=== PATIENT | female | born 1940 | race Caucasian/White ===

== ENCOUNTER 2016-07-07 13:05 | Outpatient (RCR) | payer MEDICARE ==
--- OUTSIDE RECORDS SUMMARY | 2016-07-02 15:21 | XMS REPORT | Continuity of Care Document ---
Author Author [facility] Organization [facility] Address Unknown Phone Unavailable Care Team Providers Care Ssrs Developer Name Role Phone LEOBARDO LEW DO PCP Insurance Providers Payer Name Policy Number Subscriber Name Relationship [employer] [id number] Lula Desai 18 Self / Same As Patient Advance Directives Directive Response Recorded Date/Time Advance Directives No 04/26/16 9:16am Health Care Power of Bath Mixer No 04/26/16 9:16am Organ Donor No 04/26/16 9:16am Problems No problem information available. Medications Current Home Medications Medication Dose Units Route Directions Days/Qty Instructions Start Date Multivitamin 1 Each 1 Each Oral Daily 04/23/16 Ascorbate Calcium 500 Mg 500 Mg Oral Daily 04/23/16 Ferrous Sulfate 325 Mg 325 Mg Oral Daily 04/23/16 Cholecalciferol (Vitamin D3) 1,000 Unit 1,000 Unit Oral Daily Cyanocobalamin (Vitamin B-12) 2,500 Mcg 2,500 Mcg Oral Daily Potassium Chloride 20 Meq 20 Meq Oral Twice A Day 04/23/16 Omeprazole 20 Mg 20 Mg Oral Twice A Day 04/23/16 Triamterene/Hydrochlorothiazid 1 Each 1 Each Oral Daily 04/23/16 Levothyroxine Sodium 88 Mcg 88 Mcg Oral Daily 04/23/16 Duloxetine Hcl 60 Mg 60 Mg Oral Bedtime 04/23/16 Quetiapine Fumarate 400 Mg 400 Mg Oral Bedtime 04/23/16 Social History Social History Problem Response Recorded Date/Time Recent Foreign Travel N SEE SCOT[place] 04/06/2016 2:40pm Hospital Discharge Instructions No hospital discharge instructions. Plan of Care Prescriptions See Medication Section Functional Status No functional status results. Allergies, Adverse Reactions, Alerts Allergen Type Severity Reaction Status Last Updated Codeine Allergy Unknown Active 04/23/16 Immunizations No immunization records. Vital Signs No known vital signs results. Results Laboratory Results Test Name Result Units Flags Reference Collection Date/Time Result Date/ Time Comments White Blood Count 5.9 10^3/uL 4.3-11.0 05/12/2016 1:06pm 05/12/2016 1: 20pm Red Blood Count 3.92 10^6/uL L 4.35-5.85 05/12/2016 1:06pm 05/12/2016 1: 20pm Hemoglobin 11.4 G/DL L 11.5-16.0 05/12/2016 1:06pm 05/12/2016 1:20pm Hematocrit 35 % 35-52 05/12/2016 1:06pm 05/12/2016 1:20pm Mean Corpuscular Volume 89 FL 80-99 05/12/2016 1:06pm 05/12/2016 1: 20pm Mean Corpuscular Hemoglobin 29 PG 25-34 05/12/2016 1:06pm 05/12/2016 1: 20pm Mean Corpuscular Hemoglobin Concent 33 G/DL 32-36 05/12/2016 1:06pm 1:20pm Red Cell Distribution Width 22.8 % H 10.0-14.5 05/12/2016 1:06pm 2015 1:20pm Platelet Count 327 10^3/uL 130-400 05/12/2016 1:06pm 05/12/2016 1:20pm Mean Platelet Volume 9.3 FL 7.4-10.4 05/12/2016 1:06pm 05/12/2016 1: 20pm Neutrophils (%) (Auto) 59 % 42-75 05/12/2016 1:06pm 05/12/2016 1:20pm Lymphocytes (%) (Auto) 27 % 12-44 05/12/2016 1:06pm 05/12/2016 1:20pm Monocytes (%) (Auto) 10 % 0-12 05/12/2016 1:0605/12/2016 1:20pm Eosinophils (%) (Auto) 4 % 0-10 05/12/2016 1:06pm 05/12/2016 1:20pm Basophils (%) (Auto) 1 % 0-10 05/12/2016 1:06pm 05/12/2016 1:20pm Neutrophils # (Auto) 3.4 X 10^3 1.8-7.8 05/12/2016 1:06pm 05/12/2016 1: 20pm Lymphocytes # (Auto) 1.6 X 10^3 1.0-4.0 05/12/2016 1:06pm 05/12/2016 1: 20pm Monocytes # (Auto) 0.6 X 10^3 0.0-1.0 05/12/2016 1:pm 05/12/2016 1: 20pm Eosinophils # (Auto) 0.2 10^3/uL 0.0-0.3 05/12/2016 1:pm 05/12/2016 1 :20pm Basophils # (Auto) 0.0 10^3/uL 0.0-0.1 05/12/2016 1:06pm 05/12/2016 1: 20pm Sodium Level 135 MMOL/L 135-145 05/12/2016 1:05/12/2016 2:03pm Potassium Level 3.7 MMOL/L 3.6-5.0 05/12/2016 1:05/12/2016 2:03pm Chloride Level 101 MMOL/L 98-107 05/12/2016 1:05/12/2016 2:03pm Carbon Dioxide Level 24 MMOL/L 21-32 05/12/2016 1:05/12/2016 2: 03pm Anion Gap 10 MMOL/L 5-14 05/12/2016 1:05/12/2016 2:03pm Blood Urea Nitrogen 18 MG/DL 7-18 05/12/2016 1:05/12/2016 2:03pm Creatinine 0.89 MG/DL 0.60-1.30 05/12/2016 1:06pm 05/12/2016 2:03pm BUN/Creatinine Ratio 20 05/12/2016 1:05/12/2016 2:03pm Estimat Glomerular Filtration Rate > 60 05/12/2016 1:06pm 2015 2:03pm GFR INTERPRETIVE DATA UNITS FOR ESTIMATED GFR (eGFR): mL/min/1.73 M2 REFERENCE RANGE FOR ESTIMATED GFR (eGFR) eGFR NORMAL eGFR >60 MODERATELY DECREASED eGFR 30-59 SEVERLY DECREASED eGFR 15-29 KIDNEY FAILURE <15 (OR DIALYSIS) Glucose Level 94 MG/DL 70-105 05/12/2016 1:06pm 05/12/2016 2:03pm Calcium Level 9.2 MG/DL 8.5-10.1 05/12/2016 1:06pm 05/12/2016 2:03pm Total Bilirubin 0.3 MG/DL 0.1-1.0 05/12/2016 1:06pm 05/12/2016 2:03pm Alkaline Phosphatase 49 U/L 40-136 05/12/2016 1:06pm 05/12/2016 2:03pm Aspartate Amino Transf (AST/SGOT) 17 U/L 5-34 05/12/2016 1:06pm 2015 2:03pm Alanine Aminotransferase (ALT/SGPT) 19 U/L 0-55 05/12/2016 1:06pm 05/12 2:03pm Total Protein 5.7 G/DL L 6.4-8.2 05/12/2016 1:06pm 05/12/2016 2:03pm Albumin 3.6 G/DL 3.2-4.5 05/12/2016 1:06pm 05/12/2016 2:03pm Stool Occult Blood Immunoassay NEGATIVE NEGATIVE 04/30/2016 3:00pm 4:47pm Ferritin 41 ng/mL 15-150 05/12/2016 1:06pm 05/13/2016 11:41am Test performed at [facility], CLIA# [id number] [address] [place] [address] Iron Level 31 ug/dL L 35-180 05/12/2016 1:06pm 05/12/2016 5:02pm Transferrin % Saturation 10 % L 15-50 05/12/2016 1:06pm 05/12/2016 5: 02pm Total Iron Binding Capacity 300 ug/dL 280-380 05/12/2016 1:06pm 2015 5:02pm Unsaturated Iron Binding Capacity 269 ug/dL 55-450 05/12/2016 1:06pm 5:03pm Test performed at [facility], CLIA# [id number] [address] [place] [address] Methylmalonic Acid 0.19 umol/L 0.00-0.40 05/12/2016 1:06pm 05/17/2016 7 :54am INTERPRETIVE INFORMATION: MMA Serum/Plasma, Metabolic Disorder Test developed and characteristics determined by [facility]. See Compliance Statement B: [facility] Performed by [facility], [address] [place] [id number] [email or web address], Ramsey Lyn MD - Lab. Director Vitamin B12 Level 1024 pg/mL H 200-1000 05/12/2016 1:06pm 05/13/2016 11: 42am Test performed at [facility], CLIA# [id number] [address] [place] [address] Procedures No known history of procedures. Encounters Encounter Location Arrival/Admit Date Discharge/Depart Date Attending Provider Discharged Recurring [facility] 05/12/16 12:44pm 1:29pm DANIE SHOOK MD
[2016-07-02 15:33] LABS: BASOPHILS % (AUTO) 0 % (0-10); EOSINOPHILS # (AUTO) 0.3 10^3/uL (0.0-0.3); EOSINOPHILS % (AUTO) 4 % (0-10); LYMPHOCYTES % (AUTO) 32 % (12-44); MEAN CORPUSCULAR HEMOGLOBIN 31 PG (25-34); MEAN CORPUSCULAR HGB CONC 34 G/DL (32-36); MEAN CORPUSCULAR VOLUME 91 FL (80-99); MEAN PLATELET VOLUME 9.9 FL (7.4-10.4); MONOCYTES # (AUTO) 0.7 X 10^3 (0.0-1.0); MONOCYTES % (AUTO) 11 % (0-12); NEUTROPHILS # (AUTO) 3.3 X 10^3 (1.8-7.8); NEUTROPHILS % (AUTO) 53 % (42-75); PLATELET COUNT 346 10^3/uL (130-400); RED BLOOD COUNT 4.45 10^6/uL (4.35-5.85); RED CELL DISTRIBUTION WIDTH 15.6 % (10.0-14.5); WHITE BLOOD COUNT 6.3 10^3/uL (4.3-11.0)
[2016-07-02 15:51] LABS: BILIRUBIN,TOTAL 0.5 MG/DL (0.1-1.0); CALCIUM 9.7 MG/DL (8.5-10.1); CREATININE SERUM 0.97 MG/DL (0.60-1.30); POTASSIUM 3.2 MMOL/L (3.6-5.0); TOTAL PROTEIN 6.4 G/DL (6.4-8.2)
[~2016-07-07 13:05] MED LIST: ASCO-262 PO; CHOL10003 PO; CYAN250010 PO; DULO60CA6 PO; FERR-84 PO; LEVO88TA54 PO; MULT1TAB69 PO; OMEP20CA12 PO; POTA20TA8 PO; QUET400T PO; TRIA1CAP4 PO
== END 2016-09-30 | disposition home or self-care (01) ==
LOC: ONC 13:05
PROVIDERS: ATTEND Internal Medicine Hematology & Oncology
DX: Z08 Encounter for follow-up examination after completed treatment for malignant neoplasm (principal); Z85.3 Personal history of malignant neoplasm of breast; I89.0 Lymphedema, not elsewhere classified; E03.9 Hypothyroidism, unspecified; I10 Essential (primary) hypertension; M12.9 Arthropathy, unspecified; Z79.899 Other long term (current) drug therapy
CPT/HCPCS: 36415; 80053; 82728; 83540; 85025; 86300; 99213

== ENCOUNTER 2016-12-08 13:32 | Outpatient (RCR) | payer MEDICARE ==
[2016-12-07 14:42] LABS: BASOPHILS % (AUTO) 0 % (0-10); EOSINOPHILS # (AUTO) 0.3 10^3/uL (0.0-0.3); EOSINOPHILS % (AUTO) 4 % (0-10); LYMPHOCYTES # (AUTO) 1.7 X 10^3 (1.0-4.0); LYMPHOCYTES % (AUTO) 25 % (12-44); MEAN CORPUSCULAR HEMOGLOBIN 31 PG (25-34); MEAN CORPUSCULAR HGB CONC 33 G/DL (32-36); MEAN CORPUSCULAR VOLUME 95 FL (80-99); MEAN PLATELET VOLUME 9.4 FL (7.4-10.4); MONOCYTES # (AUTO) 0.6 X 10^3 (0.0-1.0); MONOCYTES % (AUTO) 9 % (0-12); NEUTROPHILS # (AUTO) 4.1 X 10^3 (1.8-7.8); NEUTROPHILS % (AUTO) 62 % (42-75); PLATELET COUNT 310 10^3/uL (130-400); WHITE BLOOD COUNT 6.7 10^3/uL (4.3-11.0)
[2016-12-07 15:12] LABS: ALANINE AMINOTRANSFERASE 10 U/L (0-55); ALBUMIN 3.7 G/DL (3.2-4.5); ANION GAP 9 MMOL/L (5-14); ASPARTATE AMINO TRANSFERASE 13 U/L (5-34); BILIRUBIN,TOTAL 0.4 MG/DL (0.1-1.0); BLOOD UREA NITROGEN 18 MG/DL (7-18); BUN/CREATININE RATIO 21; CALCIUM 8.9 MG/DL (8.5-10.1); CARBON DIOXIDE 24 MMOL/L (21-32); CHLORIDE 102 MMOL/L (98-107); CREATININE SERUM 0.87 MG/DL (0.60-1.30); GFR ESTIMATED > 60; GLUCOSE 110 MG/DL (70-105); POTASSIUM 3.5 MMOL/L (3.6-5.0); SODIUM 135 MMOL/L (135-145); TOTAL PROTEIN 6.1 G/DL (6.4-8.2)
== END 2017-03-07 | disposition home or self-care (01) ==
LOC: ONC 13:32
PROVIDERS: ATTEND Internal Medicine Hematology & Oncology
DX: Z08 Encounter for follow-up examination after completed treatment for malignant neoplasm; D50.9 Iron deficiency anemia, unspecified; Z79.899 Other long term (current) drug therapy; M12.9 Arthropathy, unspecified; I10 Essential (primary) hypertension; I89.0 Lymphedema, not elsewhere classified; Z85.3 Personal history of malignant neoplasm of breast; Z45.2 Encounter for adjustment and management of vascular access device; E03.9 Hypothyroidism, unspecified
CPT/HCPCS: 36415; 80053; 82728; 83540; 85025; 96523; 99213

== ENCOUNTER → 2017-01-03 | Outpatient (CLI) | payer MEDICARE ==
--- NOTE | 2017-01-06 13:33 | Diagnostic Imaging Report ---
Right breast screening mammogram The current study was also evaluated with a Computer Aided Detection (CAD) system. Indication: Screening. No current complaints stated on the questionnaire. The patient has the head left mastectomy for breast cancer COMPARISON: 01/01/16 Findings: The right breast is composed of a heterogeneously dense parenchyma which may decrease mammographic sensitivity. The infusion port projects over the right axillary tail region. Allowing for technique and positional differences, no suspicious change is seen. IMPRESSION: No significant change. ACR BI-RADS Category 2: Benign findings. Result letter will be mailed to the patient. Note: At least 10% of breast cancer is not imaged by mammography. Dictated by: Dictated on workstation # [id number]
== END ==
LOC: RAD 14:55
PROVIDERS: ATTEND Internal Medicine Hematology & Oncology
DX: Z12.31 Encounter for screening mammogram for malignant neoplasm of breast (principal)

== ENCOUNTER → 2020-05-30 | Outpatient (CLI) | payer MEDICARE ==
[~2020-05-30] MED LIST changes: +MULT-567 PO; -MULT1TAB69 PO; -OMEP20CA12 PO; +OMEP20CA18 PO
--- NOTE | 2020-05-30 12:48 | Diagnostic Imaging Report ---
INDICATION: Routine screening. Comparison is made with prior mammogram 01/03/2017 and 01/01/2016. Unilateral right 2-D and 3-D screening mammography was performed with CAD. Scattered fibroglandular densities in the right breast are noted. No dominant mass or malignant appearing microcalcifications are seen. Biihlm-z-Lefv hub in the right axilla is noted. IMPRESSION: BI-RADS Category 2 No mammographic features suspicious for malignancy are identified. ACR BI-RADS Category 2: Benign findings. Result letter will be mailed to the patient. Note: At least 10% of breast cancer is not imaged by mammography. Dictated by: Dictated on workstation # [id number]
== END ==
LOC: RAD 11:15
PROVIDERS: ATTEND Family Medicine
DX: Z12.31 Encounter for screening mammogram for malignant neoplasm of breast (principal)
CPT/HCPCS: 77063

== ENCOUNTER → 2020-10-27 | Outpatient (CLI) | payer MEDICARE ==
--- NOTE | 2020-10-27 16:41 | Diagnostic Imaging Report ---
INDICATION: Left leg swelling EXAM: Noninvasive study performed in the routine fashion. Ankle-brachial indices on both sides are normal with ankle-brachial index for the posterior tibial artery of 1.29 on the right side and 1.20 on the left side. Ankle-brachial index for the dorsalis pedis was 1.17 on the right side and 1.4 on the left side. Segmental pressures showed normal waveforms bilaterally. IMPRESSION: Normal noninvasive study. Dictated by: Dictated on workstation # [id number]
== END ==
LOC: RAD 12:30
PROVIDERS: ATTEND Family Medicine
DX: M79.89 Other specified soft tissue disorders (principal)
CPT/HCPCS: 93922

== ENCOUNTER → 2022-03-10 | Outpatient (CLI) | payer MEDICARE ==
[~2022-03-10] MED LIST changes: -DULO60CA6 PO; +DULO60CA7 PO; +POTA-169 PO; -POTA20TA8 PO; -TRIA1CAP4 PO; +TRIA1CAP84 PO
--- NOTE | 2022-03-11 11:34 | Diagnostic Imaging Report ---
INDICATION: Routine screening. COMPARISON is made with prior mammograms 05/30/2020 and 01/03/2017. Unilateral right 2-D and 3-D screening mammography was performed with CAD. Right breast is heterogeneous and dense, limiting the sensitivity of mammography. The parenchymal pattern is stable. No mass or malignant-appearing microcalcifications are seen. Right axilla is unremarkable. IMPRESSION: BI-RADS Category 1 No mammographic features suspicious for malignancy are identified. ACR BI-RADS Category 1: Negative. Result letter will be mailed to the patient. Note: At least 10% of breast cancer is not imaged by mammography. Dictated by: Dictated on workstation # [id number]
== END ==
LOC: CARD 13:30
PROVIDERS: ATTEND Family Medicine
DX: Z12.31 Encounter for screening mammogram for malignant neoplasm of breast (principal); R01.1 Cardiac murmur, unspecified; Z90.12 Acquired absence of left breast and nipple
CPT/HCPCS: 77063; 93306

== ENCOUNTER 2023-04-13 15:29 | Inpatient (IN) | payer MEDICARE ==
[~2023-04-13] VITALS: Ht 162.6 cm; Wt 106.0 kg
--- NOTE | 2023-04-13 15:42 | ED Fall/Injury ---
General Chief Complaint: Trauma-Non Activation Stated Complaint: FALL Source: patient, EMS, old records Exam Limitations: no limitations History of Present Illness Date Seen by Provider: Apr 13, 2023 Time Seen by Provider: 15:31 Initial Comments 82yoF with PMH of HTN and hypothyroid most notably coming in via EMS due to a fall with left knee pain. She fell yesterday, family called EMS, patient refused to come. She states her knee has been "spasming" since then. She also has noted diarrhea for the past several days and subjective fever recently. Denies any chest pain, shortness of breath, headache, neck stiffness or pain, chest pain, shortness of breath, abdominal pain, weakness, numbness, or any other concerns. She does not believe she hit her head, she does not believe she passed out. She denies taking blood thinners. Allergies and Home Medications Allergies Coded Allergies: codeine (Verified Allergy, Unknown, 04/23/16) Patient Home Medication List Home Medication List Reviewed: Yes Ascorbate Calcium (Vitamin C) 500 Mg Tablet, 500 MG PO DAILY, (Reported) Entered as Reported by: KAREL DEMPSEY on 04/23/16836 Cholecalciferol (Vitamin D3) (Vitamin D3) 1,000 Unit Tablet, 1,000 UNIT PO DAILY , (Reported) Entered as Reported by: KAREL DEMPSEY on 04/23/16836 Cyanocobalamin (Vitamin B-12) (Vitamin B12) 2,500 Mcg Tablet, 2,500 MCG PO DAILY, (Reported) Entered as Reported by: KAREL DEMPSEY on 04/23/16836 Duloxetine HCl (Cymbalta) 60 Mg Capsule.dr, 60 MG PO HS, (Reported) Entered as Reported by: KAREL DEMPSEY on 04/23/16 08 Ferrous Sulfate (Iron) 325 Mg Tablet, 325 MG PO DAILY, (Reported) Entered as Reported by: KAREL DEMPSEY on 04/23/16836 Levothyroxine Sodium (Levothyroxine Sodium) 88 Mcg Tablet, 88 MCG PO DAILY, (Reported) Entered as Reported by: KAREL DEMPSEY on 04/23/16836 Multivitamin (Multivitamins) 1 Each Tablet, 1 EACH PO DAILY, (Reported) Entered as Reported by: KAREL DEMPSEY on 04/23/16836 Omeprazole (Omeprazole) 20 Mg Capsule.dr, 20 MG PO BID, (Reported) Entered as Reported by: KAREL DEMPSEY on 04/23/16836 Potassium Chloride (Klor-Con M20) 20 Meq Tab.er.prt, 20 MEQ PO BID, (Reported) Entered as Reported by: KAREL DEMPSEY on 04/23/16836 Quetiapine Fumarate (Seroquel) 400 Mg Tablet, 400 MG PO HS, (Reported) Entered as Reported by: KAREL DEMPSEY on 04/23/16836 Triamterene/Hydrochlorothiazid (Triamterene-Hctz 37.5-25 mg Cp) 1 Each Capsule, 1 EACH PO DAILY, (Reported) Entered as Reported by: KAREL DEMPSEY on 04/23/16836 Review of Systems Review of Systems Constitutional: fever Eyes: No Symptoms Reported Ears, Nose, Mouth, Throat: no symptoms reported Respiratory: no symptoms reported Cardiovascular: no symptoms reported Gastrointestinal: see HPI Genitourinary: no symptoms reported Musculoskeletal: see HPI Skin: no symptoms reported Psychiatric/Neurological: No Symptoms Reported All Other Systems Reviewed Negative Unless Noted: Yes Past Jokqaez-Loocli-Zqahhm Hx Patient Social History Substance use?: No Physical Exam Vital Signs Vital Signs - First Documented 04/13/23 15:34 Temp 37.9 Pulse 80 Resp 18 B/P (MAP) 126/43 (70) Pulse Ox 98 O2 Delivery Room Air Capillary Refill : Height, Weight, BMI Height: 5'4.00" Weight: 215lbs. 0.0oz. 97.034255ga; 36.9 BMI Method: General Appearance: WD/WN, no apparent distress HEENT: PERRL/EOMI, normal ENT inspection, pharynx normal Neck: non-tender, full range of motion, supple, normal inspection Cardiovascular: regular rate, rhythm Respiratory: chest non-tender, lungs clear, normal breath sounds, no respiratory distress, no accessory muscle use Gastrointestinal: normal bowel sounds, non tender, soft; No distended, No guarding, No rebound Back: normal inspection, no CVA tenderness, no vertebral tenderness Extremities: normal range of motion, no calf tenderness, normal capillary r efill, other (Left knee with some mild swelling and tenderness to palpation, no tenderness along the right knee, no pain with logroll of the hips, normal distal sensation and capillary refill, normal motor exam otherwise) Neurologic/Psychiatric: no motor/sensory deficits, alert, normal mood/affect Skin: normal color, warm/dry Cole Coma Score Best Eye Response: (4) Open Spontaneously Best Verbal Response: (4) Confused Conversation Best Motor Response: (6) Obeys Commands Progress/Results/Core Measures Results/Orders Lab Results Laboratory Tests Test 04/13/23 15:42 04/13/23 15:56 04/13/23 16:40 04/13/23 16:56 Range/Units White Blood Count 29.6 H 4.3-11.0 10^3/uL Red Blood Count 4.31 3.80-5.11 10^6/uL Hemoglobin 11.6 11.5-16.0 g/dL Hematocrit 33 L 35-52 % Mean Corpuscular Volume 77 L 80-99 fL Mean Corpuscular Hemoglobin 27 25-34 pg Mean Corpuscular Hemoglobin Concent 35 32-36 g/dL Red Cell Distribution Width 16.5 H 10.0-14.5 % Platelet Count 251 130-400 10^3/uL Mean Platelet Volume 12.7 H 9.0-12.2 fL Immature Granulocyte % (Auto) 4 % Neutrophils (%) (Auto) 87 H 42-75 % Lymphocytes (%) (Auto) 5 L 12-44 % Monocytes (%) (Auto) 4 0-12 % Eosinophils (%) (Auto) 0 0-10 % Basophils (%) (Auto) 0 0-10 % Neutrophils # (Auto) 25.8 H 1.8-7.8 10^3/uL Lymphocytes # (Auto) 1.4 1.0-4.0 10^3/uL Monocytes # (Auto) 1.2 H 0.0-1.0 10^3/uL Eosinophils # (Auto) 0.1 0.0-0.3 10^3/uL Basophils # (Auto) 0.0 0.0-0.1 10^3/uL Immature Granulocyte # (Auto) 1.1 H 0.0-0.1 10^3/uL Neutrophils % (Manual) 89 % Lymphocytes % (Manual) 5 % Monocytes % (Manual) 6 % Poikilocytosis SLIGHT Anisocytosis SLIGHT Prothrombin Time 14.6 12.2-14.7 SEC INR Comment 1.1 0.8-1.4 Activated Partial Thromboplast Time 29 24-35 SEC Sodium Level 129 L 135-145 MMOL/L Potassium Level 2.6 L 3.6-5.0 MMOL/L Chloride Level 97 L 98-107 MMOL/L Carbon Dioxide Level 22 21-32 MMOL/L Anion Gap 10 5-14 MMOL/L Blood Urea Nitrogen 39 H 7-18 MG/DL Creatinine 2.31 H 0.60-1.30 MG/DL Estimat Glomerular Filtration Rate 21 BUN/Creatinine Ratio 17 Glucose Level 113 H 70-105 MG/DL Calcium Level 9.1 8.5-10.1 MG/DL Corrected Calcium 10.1 8.5-10.1 MG/DL Magnesium Level 2.2 1.6-2.4 MG/DL Total Bilirubin 0.7 0.1-1.0 MG/DL Aspartate Amino Transf (AST/SGOT) 43 H 5-34 U/L Alanine Aminotransferase (ALT/SGPT) 23 0-55 U/L Alkaline Phosphatase 99 40-136 U/L Troponin I 0.336 *H <0.028 NG/ML Total Protein 5.8 L 6.4-8.2 GM/DL Albumin 2.7 L 3.2-4.5 GM/DL Lipase 15 8-78 U/L Influenza Type A (RT-PCR) Not Detected Not Detecte Influenza Type B (RT-PCR) Not Detected Not Detecte SARS-CoV-2 RNA (RT-PCR) Not Detected Not Detecte Lactic Acid Level 1.58 0.50-2.00 MMOL/L My Orders Orders - RADHA HAAS MD Ct Head/Cervical Spine Wo (04/13/23 15:35) Ed Iv/Invasive Line Start (04/13/23 15:35) Chest 1 View, Ap/Pa Only (04/13/23 15:35) Knee, Left, 3 Views (04/13/23 15:35) Pelvis With Left Hip 2-3 Views (04/13/23 15:35) Cbc With Automated Diff (04/13/23 15:35) Comprehensive Metabolic Panel (04/13/23 15:35) Lipase (04/13/23 15:35) Magnesium (04/13/23 15:35) Protime With Inr (04/13/23 15:35) Partial Thromboplastin Time (04/13/23 15:35) Ua Culture If Indicated (04/13/23 15:35) Influenza A And B By Pcr (04/13/23 15:35) Troponin I Nilesh (04/13/23 15:35) Ekg Tracing (04/13/23 15:35) Covid 19 Inhouse Test (04/13/23 15:35) Acetaminophen Tablet (Acetaminophen Ta (04/13/23 15:45) Manual Differential (04/13/23 15:42) Ns Iv 1000 Ml (Sodium Chloride 0.9%) (04/13/23 16:23) Blood Culture (04/13/23 16:23) Lactic Acid Analyzer (04/13/23 16:23) Cefepime Injection (Cefepime Injection) (04/13/23 16:30) Potassium Cl 10meq/50ml Ivpb (Kcl 10 Meq (04/13/23 16:24) Potassium Chloride (Tablet) (Potassium C (04/13/23 16:30) Aspirin Chewable Tablet (Aspirin Chewabl (04/13/23 16:30) Ns Iv 1000 Ml (Sodium Chloride 0.9%) (04/13/23 16:54) Ed Admission (Communication) (04/13/23 17:07) Medications Given in ED Current Medications Medications Dose Ordered Sig/Gordon Route Start Time Stop Time Status Last Admin Dose Admin Acetaminophen 1,000 mg ONCE ONCE PO 04/13/23 15:45 04/13/23 15:46 DC 04/13/23 15:54 1,000 MG Aspirin 324 mg ONCE ONCE PO 04/13/23 16:30 04/13/23 16:31 DC 04/13/23 17:05 324 MG Potassium Chloride 40 meq ONCE ONCE PO 04/13/23 16:30 04/13/23 16:31 DC 04/13/23 17:04 40 MEQ Vital Signs/I&O 04/13/23 15:34 Temp 37.9 Pulse 80 Resp 18 B/P (MAP) 126/43 (70) Pulse Ox 98 O2 Delivery Room Air Progress Progress Note : Progress Note 82-year-old female with above history coming in after a fall and confused. Patient was not quite febrile on arrival but did have an elevated temperature, vitals otherwise fairly unremarkable. She was confused on exam and is unclear exactly why she is here or what happened. Exam mostly consistent with left knee pain. EKG ordered and interpreted by me showing no STEMI, does have some nonspecific T wave flattening in the high lateral leads. CT head and cervical spine ordered and interpreted by me showing no obvious fracture and no significant intracranial bleed or mass. X-ray chest, pelvis, left hip, left knee ordered and interpreted by me showing no obvious fracture or dislocation, no obvious pneumonia. Basic labs significant for white blood cell count just under 30, BRIAN with a creatinine just over 2, elevated troponin just over 0.3, low sodium, low potassium. She was given full dose aspirin, sepsis work-up will be initiated as well with IV antibiotics and IV fluids including lactic acid and blood cultures. The patient has had significant diarrhea for the past several days, I suspect she is hypovolemic and just needs fluids. I suspect the troponin elevation is a type II NSTEMI given the relatively unremarkable EKG and lack of chest pain. I contacted Dr. Buenrostro who admit the patient to the intensive care unit for further evaluation and management. We will consult with the dowel pointer, awaiting a callback at this time. I also contacted the ICU physician and give signout. Initial ECG Impression Date: Apr 13, 2023 Initial ECG Impression Time: 15:59 Initial ECG Rate: 74 Initial ECG Rhythm: Normal Sinus Comment Narrow QRS, normal axis, no significant ST changes, T wave flattening in the high lateral leads which is nonspecific Diagnostic Imaging Diagonstic Imaging: Xray (chest, pelvis, left hip, left knee), CT (head/cspine) Comments NAME: PAVITHRA DESAI [facility] REC#: [id number] PT STATUS: REG ER : 1940 PHYSICIAN: RADHA HAAS MD ADMIT DATE: 04/13/23/ER Draft Date of Exam:04/13/23 CT HEAD/CERVICAL SPINE WO PROCEDURE: CT head and CT cervical spine without contrast. TECHNIQUE: Multiple contiguous axial images were obtained through the brain and cervical spine without the use of intravenous contrast. Sagittal and coronal reformations through the cervical spine were then performed. Auto Exposure Controls were utilized during the CT exam to meet ALARA standards for radiation dose reduction. INDICATION: Traumatic injury. Fall. COMPARISON: None. FINDINGS: CT HEAD: The ventricles and cortical sulci are diffusely prominent, compatible with age-related volume loss. There is no midline shift or mass-effect. No acute intra-axial hemorrhage is seen. There are no abnormal areas of increased or decreased density to suggest acute hemorrhage or edema. No extra-axial masses or collections are present. The bony calvarium is intact. The visualized paranasal sinuses are unremarkable. The mastoid air cells are clear. CT CERVICAL SPINE: Static alignment of the cervical spine is maintained. There is no significant carole or retrolisthesis. There is no evidence of jumped facets. Vertebral body heights are maintained. There is no acute fracture. No bony fragments are seen within the spinal canal. There are moderate multilevel degenerative changes consistent with intervertebral disc height loss with anterior and posterior endplate osteophyte formations. Pre and paravertebral soft tissue structures are unremarkable. Included portions of the lung apices are clear. IMPRESSION: 1. No acute intracranial abnormality. No CT evidence of mass, acute infarct or intracranial hemorrhage. 2. No acute fracture or dislocation of the cervical spine. Dictated on workstation # [id number] Dict: 04/13/23 1618 Trans: 04/13/23 1625 [id number] Interpreted by: RUTH FARRELL MD Electronically signed by: Focused Exam Lactate Level 04/13/23 16:40: Lactic Acid Level 1.58 Lactic Acid Level Laboratory Tests Test 04/13/23 16:40 Lactic Acid Level 1.58 MMOL/L (0.50-2.00) Departure Impression Primary Impression: NSTEMI (non-ST elevated myocardial infarction) Additional Impressions: Fall Qualified Codes: W19.XXXA - Unspecified fall, initial encounter AMS (altered mental status) Qualified Codes: R41.0 - Disorientation, unspecified BRIAN (acute kidney injury) Hypokalemia Disposition: ADMITTED INPATIENT Condition: Stable Admissions Decision to Admit Reason: Admit from ER (General) Decision to Admit/Date: Apr 13, 2023 Time/Decision to Admit Time: 16:40 Departure-Patient Inst. Referrals: LEOBARDO LEW DO (PCP/Family) Primary Care Physician RADHA HAAS MD Apr 13, 2023 15:42
[2023-04-13] MEDS ORDERED: ACETAMINOPHEN 500 MG TABLET PO ONE (15:45)
[2023-04-13 16:03] LABS: BASOPHILS % (AUTO) 0 % (0-10); EOSINOPHILS # (AUTO) 0.1 10^3/uL (0.0-0.3); EOSINOPHILS % (AUTO) 0 % (0-10); HEMATOCRIT 33 % (35-52); HEMOGLOBIN 11.6 g/dL (11.5-16.0); LYMPHOCYTES # (AUTO) 1.4 10^3/uL (1.0-4.0); LYMPHOCYTES % (AUTO) 5 % (12-44); MEAN CORPUSCULAR HEMOGLOBIN 27 pg (25-34); MEAN CORPUSCULAR HGB CONC 35 g/dL (32-36); MEAN CORPUSCULAR VOLUME 77 fL (80-99); MEAN PLATELET VOLUME 12.7 fL (9.0-12.2); MONOCYTES # (AUTO) 1.2 10^3/uL (0.0-1.0); MONOCYTES % (AUTO) 4 % (0-12); NEUTROPHILS # (AUTO) 25.8 10^3/uL (1.8-7.8); NEUTROPHILS % (AUTO) 87 % (42-75); PLATELET COUNT 251 10^3/uL (130-400); WHITE BLOOD COUNT 29.6 10^3/uL (4.3-11.0)
[2023-04-13 16:07] LABS: ALBUMIN 2.7 GM/DL (3.2-4.5); POTASSIUM 2.6 MMOL/L (3.6-5.0)
[2023-04-13 16:09] LABS: CALCIUM 9.1 MG/DL (8.5-10.1)
[2023-04-13 16:10] LABS: TOTAL PROTEIN 5.8 GM/DL (6.4-8.2)
[2023-04-13 16:12] LABS: BILIRUBIN,TOTAL 0.7 MG/DL (0.1-1.0)
[2023-04-13 16:13] LABS: CREATININE SERUM 2.31 MG/DL (0.60-1.30)
[2023-04-13 16:16] LABS: MAGNESIUM 2.2 MG/DL (1.6-2.4)
[2023-04-13 16:23] LABS: INR 1.1 (0.8-1.4); PROTHROMBIN TIME PATIENT 14.6 SEC (12.2-14.7)
[2023-04-13] MEDS ORDERED: NS IV 1000 ML 1,000 ML IV STA ×2 (16:23→16:54)
[2023-04-13] MEDS ORDERED: POTASSIUM CL 10MEQ/50ML IVPB 50 ML IV STA (16:24)
--- NOTE | 2023-04-13 16:26 | Diagnostic Imaging Report ---
PROCEDURE: CT head and CT cervical spine without contrast. TECHNIQUE: Multiple contiguous axial images were obtained through the brain and cervical spine without the use of intravenous contrast. Sagittal and coronal reformations through the cervical spine were then performed. Auto Exposure Controls were utilized during the CT exam to meet ALARA standards for radiation dose reduction. INDICATION: Traumatic injury. Fall. COMPARISON: None. FINDINGS: CT HEAD: The ventricles and cortical sulci are diffusely prominent, compatible with age-related volume loss. There is no midline shift or mass-effect. No acute intra-axial hemorrhage is seen. There are no abnormal areas of increased or decreased density to suggest acute hemorrhage or edema. No extra-axial masses or collections are present. The bony calvarium is intact. The visualized paranasal sinuses are unremarkable. The mastoid air cells are clear. CT CERVICAL SPINE: Static alignment of the cervical spine is maintained. There is no significant carole or retrolisthesis. There is no evidence of jumped facets. Vertebral body heights are maintained. There is no acute fracture. No bony fragments are seen within the spinal canal. There are moderate multilevel degenerative changes consistent with intervertebral disc height loss with anterior and posterior endplate osteophyte formations. Pre and paravertebral soft tissue structures are unremarkable. Included portions of the lung apices are clear. IMPRESSION: 1. No acute intracranial abnormality. No CT evidence of mass, acute infarct or intracranial hemorrhage. 2. No acute fracture or dislocation of the cervical spine. Dictated by: Dictated on workstation # [id number]
[2023-04-13] MEDS ORDERED: ASPIRIN 81 MG CHEWABLE TABLET PO ONE (16:30)
[2023-04-13] MEDS ORDERED: POTASSIUM CHLORIDE 20 MEQ TABLET PO ONE (16:30)
[2023-04-13] MEDS ORDERED: CEFEPIME INJECTION 1,000 MG in NS (IVPB) 50 ML 50 ML IV ONE (16:30)
[2023-04-13 16:41] LABS: ANISOCYTOSIS SLIGHT; LYMPHOCYTES % (MANUAL) 5 %; MONOCYTES % (MANUAL) 6 %; NEUTROPHILS % (MANUAL) 89 %; POIKILOCYTOSIS SLIGHT
--- NOTE | 2023-04-13 16:45 | Diagnostic Imaging Report ---
HISTORY: Syncope, fall COMPARISON: None TECHNIQUE: Frontal view of the chest. FINDINGS: Lung volumes are normal. No consolidation is seen. There is no pleural effusion or pneumothorax. The cardiac silhouette is mildly large. There is calcified granuloma in the left lung. There is a linear density at the right upper lung projecting over the upper SVC. Surgical clips are seen in the left axilla. IMPRESSION: 1. Mild cardiomegaly with no acute pulmonary abnormality seen. 2. Linear density could represent a Port-A-Cath, projecting over the upper SVC. Dictated by: Dictated on workstation # [id number]
--- NOTE | 2023-04-13 16:46 | Diagnostic Imaging Report ---
EXAMINATION: Left knee radiographs, 3 views. COMPARISON: None. HISTORY: 82-year-old female, left knee pain. Fall. FINDINGS: There is severe medial and patellofemoral compartment joint space loss. There are tricompartmental osteophytes. There is a large knee joint effusion. There is no identified acute fracture. IMPRESSION: 1. Severe predominantly medial and patellofemoral compartment osteoarthritis of the left knee with large knee joint effusion. 2. No identified acute fracture. Dictated by: Dictated on workstation # [id number]
--- NOTE | 2023-04-13 16:50 | Diagnostic Imaging Report ---
INDICATION: Pain. COMPARISON: None available. TECHNIQUE: Three radiographs of the pelvis and left hip dated 04/13/2020 FINDINGS: Bradford left curvature of the lumbar spine associated with degenerative changes, partially visualized. Mesh tacks are identified overlying the central pelvis. No acute fracture or dislocation. No destructive osseous process. Mild degenerative changes of the bilateral hips with joint space narrowing. Chondrocalcinosis of the pubic symphysis. No collapse of the left femoral head. IMPRESSION: No acute osseous abnormality with scattered osseous degenerative changes, greatest within the partially visualized lower lumbar spine. 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 Dictated by: Dictated on workstation # [id number]
--- NOTE | 2023-04-13 17:01 | History & Physical ---
History of Present Illness HPI/Chief Complaint Chief complaint: Found down at home with hypovolemia status HPI: This is an 82-year-old female who was found down at home sitting in diarrhea reporting severe weakness. Apparently she has had a large amount of diarrhea the last few days and was found to have acute kidney injury with dehydration and hyponatremia with hypokalemia. She also had an elevated troponin likely a type II OR and cardiology has been consulted. She met criteria to be in the ICU. IV fluids will be given along with empiric vancomycin oral 4 times daily regimen for empiric coverage of C. difficile colitis. Slight UTI noted so we will continue cefepime as ER had started. Source: patient, family, old records Exam Limitations: no limitations Date Seen 04/13/23 Time Seen by a Provider: 18:00 Attending Physician Divya Vaca DO PCP Admitting Physician: Attending Physician: Referring Physician Date of Admission Home Medications & Allergies Home Medications Reviewed patient Home Medication Reconciliation performed by pharmacy medication reconciliations sewer and drain technician and/or nursing. Patients Allergies have been reviewed. Allergies Allergies Coded Allergies codeine (Verified Allergy, Unknown, 04/23/16) Past Rrgllxi-Slogyn-Wqhqmq Hx Past Med/Social Hx: Reviewed Nursing Past Med/Soc Hx, Reviewed and Corrections made Patient Social History Marrital Status: single Employed/Student: retired Alcohol Use: Denies Use Smoking Status: Never a Smoker Immunizations Up To Date Date of Pneumonia Vaccine: May 29, 2014 Past Medical History Cardiac: High Cholesterol, Hypertension Endocrine: Hypothyroidsim Psychosocial: Anxiety, Bipolar, Depression Review of Systems Constitutional: see HPI, dizziness, malaise, weakness EENTM: no symptoms reported Respiratory: no symptoms reported Cardiovascular: no symptoms reported Gastrointestinal: diarrhea Genitourinary: no symptoms reported Musculoskeletal: back pain, joint pain Skin: no symptoms reported Psychiatric/Neurological: Anxiety, Depressed All Other Systems Reviewed Negative Unless Noted: Yes Physical Exam Physical Exam Vital Signs Vital Signs - First Documented 04/13/23 04/13/23 15:34 18:45 Temp 37.9 Pulse 80 Resp 18 B/P (MAP) 126/43 (70) Pulse Ox 98 O2 Delivery Room Air FiO2 21 Capillary Refill : Less Than 3 Seconds Height, Weight, BMI Height: 5'4.00" Weight: 215lbs. 0.0oz. 97.923368gz; 36.9 BMI Method: General Appearance: No Apparent Distress, WD/WN, Chronically ill Eyes: Bilateral Eye Normal Inspection, Bilateral Eye PERRL HEENT: PERRL/EOMI, Normal ENT Inspection, Pharynx Normal Neck: Full Range of Motion, Normal Inspection, Non Tender, Supple, Carotid Bruit Respiratory: Chest Non Tender, Lungs Clear, Normal Breath Sounds, No Accessory Muscle Use, No Respiratory Distress Cardiovascular: Regular Rate, Rhythm, No Edema, No Gallop, No JVD, No Murmur, Normal Peripheral Pulses, Tachycardia Gastrointestinal: Normal Bowel Sounds, No Organomegaly, No Pulsatile Mass, Non Tender, Soft Back: Normal Inspection, No CVA Tenderness, No Vertebral Tenderness Extremity: Normal Capillary Refill, Normal Inspection, Normal Range of Motion, Non Tender, No Calf Tenderness, No Pedal Edema Neurologic/Psychiatric: Alert, Oriented x3, No Motor/Sensory Deficits, hospital nurse II- XII Norm as Tested, Abnormal Gait, Depressed Affect, Motor Weakness (generalized) Skin: Normal Color, Warm/Dry Lymphatic: No Adenopathy Results Results/Procedures Labs Laboratory Tests 04/13/23 15:42 Patient resulted labs reviewed. Assessment/Plan Admission Diagnosis Assessment: Severe hypovolemia from severe diarrhea Found down at home Sepsis from UTI Type II OR Acute kidney injury Hyponatremia Hypokalemia Hypothyroidism History of hypertension Advanced age Emotional problems Profound leukocytosis Anemia Plan: IV fluids ICU Cardiology consult Supportive care Empiric antibiotics for UTI Empiric treatment for C. difficile colitis with vancomycin and Questran Admission Status: Inpatient Order (span 2 midnights) Reason for Inpatient Admission: Hypovolemia with UTI and hyponatremia with hypokalemia and severe diarrhea and found down at home Diagnosis/Problems Diagnosis/Problems (1) AMS (altered mental status) Status: Acute Qualifiers: Altered mental status type: disorientation Qualified Codes: R41.0 - Disorientation, unspecified (2) BRIAN (acute kidney injury) Status: Acute (3) NSTEMI (non-ST elevated myocardial infarction) Status: Acute (4) Fall Status: Acute Qualifiers: Encounter type: initial encounter Qualified Codes: W19.XXXA - Unspecified fall, initial encounter (5) Hypokalemia Status: Acute (6) Dehydration WALI RYAN DO Apr 13, 2023 17:01
[2023-04-13 17:42] LABS: CLARITY,URINE CLEAR; COLOR,URINE YELLOW; GLUCOSE, URINE (UA) NEGATIVE (NEGATIVE); KETONES,URINE NEGATIVE (NEGATIVE); NITRITE,URINE NEGATIVE (NEGATIVE); PH,URINE 5.5 (5-9); PROTEIN,URINE 2+ (NEGATIVE)
[2023-04-13 17:43] LABS: BACTERIA,URINE MODERATE /HPF; BILIRUBIN,URINE 1+ (NEGATIVE); LEUKOCYTE ESTERASE ,URINE NEGATIVE (NEGATIVE)
[2023-04-13 18:38] VITALS: BP 121/96
[2023-04-13 18:45] VITALS: BP 126/43
[2023-04-13] MEDS ORDERED: ONDANSETRON INJECTION 4 MG/2 ML (SDV) IV PRN (18:45)
[2023-04-13] MEDS ORDERED: CALCIUM CARBONATE 500 MG CHEW TABLET PO PRN (18:45)
[2023-04-13] MEDS ORDERED: ANTACID SUSPENSION 30 ML UDC PO PRN (18:45)
[2023-04-13] MEDS ORDERED: diphenhydrAMINE INJ 50 MG/ML VIAL IVP PRN (18:45)
[2023-04-13] MEDS ORDERED: MELATONIN 3 MG TABLET PO PRN (18:45)
[2023-04-13] MEDS ORDERED: LORazepam 0.5 MG TABLET PO PRN (18:45)
[2023-04-13] MEDS ORDERED: diphenhydrAMINE 25 MG TABLET PO PRN (18:45)
[2023-04-13] MEDS ORDERED: NS IV 500 ML 500 ML IV PRN (18:45)
[2023-04-13] MEDS ORDERED: BISACODYL 10 MG SUPPOSITORY PR PRN (18:45)
[2023-04-13] MEDS ORDERED: LACTULOSE SYRUP 10GM/15ML 30ML UDC PO PRN (18:45)
[2023-04-13] MEDS ORDERED: ONDANSETRON 4 MG ORAL DISSOLVE TABLET PO PRN (18:45)
[2023-04-13] MEDS ORDERED: MILK OF MAGNESIA 400 MG/5 ML 30 ML UDC PO PRN (18:45)
[2023-04-13] MEDS ORDERED: morphine INJ 4 MG/ML 1 ML (VIAL/SYRINGE) IV PRN (18:45)
[2023-04-13] MEDS: NS IV 1000 ML 1,000 ML IV SCH (19:00)
[2023-04-13] MEDS: POTASSIUM CL 10MEQ/50ML IVPB 50 ML IV SCH ×4 (19:01→20:43)
[2023-04-13] MEDS ORDERED: POTASSIUM CL 10MEQ/50ML IVPB 50 ML IV SCH (19:15)
--- NOTE | 2023-04-13 19:43 | Tele-ICU Consult ---
History of Present Illness History of Present Illness Date Seen by Provider: Apr 13, 2023 Time Seen by Provider: 19:37 Date of Admission 04/13/23 Reason for Visit: fall, diarrhoea. History of Present Illness (Tele-ICU Physician , Progress Note ) Service provided via interactive audio and video telecommunBioheart E-CARE system to a patient admitted to ICU bed in [facility]. Patient is seen today due to persistent need of ICU care Available chart/ vitals / labs / Images reviewed Video assessment done using teleICU camera, rest of exam as per RN She is a 82-year-old female with past medical history of hypothyroidism, hypertension and apparently fell down yesterday and called me. Currently she is refusing to go to the hospital family: [place]. Today she came with a spasming in the knee. Also she admits that she has been having diarrhea last several days with a subjective fever. No history of abdominal pain, shortness of breath present. She is found to be in acute renal failure associated with hypokalemia. Blood pressure is somewhat low and she is given IV fluids bolus. Her white count is markedly elevated however her chest x-ray is showing no evidence of infection and also urine analysis is unremarkable. She is admitted for further evaluation and management. Impression 1. Acute renal failure due to dehydration. 2. Diarrhea of undetermined etiology but needs to rule out any C. difficile colitis 3. left knee pain pain secondary to fall and has severe osteoarthritis 4. Elevated troponin rule out non-STEMI 5. Microcytosis with anemia needs to rule out any iron deficiency anemia malignancy not ruled out. Recommendations 1. Hydrate patient with normal saline and replace potassium 2. We will get the stool studies including C. difficile toxin,culture,and stool guiac 3. serum iron studies, 4 monitor bun/cr, and k Coordination of care with primary and bedside consultants I am remotely monitoring this patient from Tele icu station in [place]. I am unable to do the bedside exam, and history/physical and pertinent information is taken from other notes in the computer and bedside staff. Certain portions of this document may have been dictated utilizing voice recognition technology such as [employer]. Inherent to this technology, typographical and grammatical errors may exist. As much as I am diligent to identify and correct to these mistakes, some errors may remain in the document. Critical care time devoted to this patient today is approximately is- 30 minutes Allergies and Home Medications Allergies Coded Allergies: codeine (Verified Allergy, Unknown, 04/23/16) Home Medications Ascorbate Calcium 500 Mg Tablet, 500 MG PO DAILY, (Reported) Cholecalciferol (Vitamin D3) 1,000 Unit Tablet, 1,000 UNIT PO DAILY, (Reported) Cyanocobalamin (Vitamin B-12) 2,500 Mcg Tablet, 2,500 MCG PO DAILY, (Reported) Duloxetine HCl 60 Mg Capsule.dr, 60 MG PO HS, (Reported) Ferrous Sulfate 325 Mg Tablet, 325 MG PO DAILY, (Reported) Levothyroxine Sodium 88 Mcg Tablet, 88 MCG PO DAILY, (Reported) Multivitamin 1 Each Tablet, 1 EACH PO DAILY, (Reported) Omeprazole 20 Mg Capsule.dr, 20 MG PO BID, (Reported) Potassium Chloride 20 Meq Tab.er.prt, 20 MEQ PO BID, (Reported) Quetiapine Fumarate 400 Mg Tablet, 400 MG PO HS, (Reported) Triamterene/Hydrochlorothiazid 1 Each Capsule, 1 EACH PO DAILY, (Reported) Past Medical/Social/Family Hx Patient Social History Tobacco Use?: No Substance use?: No Alcohol Use?: No Pt stated abuse/neglect: No Immunizations Up To Date Date of Pneumonia Vaccine: May 29, 2014 Current Status Advance Directives: No Primary Language: Nauruan Preferred Spoken Language: Nauruan Additional sensory deficits: READING Implanted or Applied Medical D: None Review of Systems Constitutional: see HPI, malaise, weakness Focused Exam Lactate Level 04/13/23 16:40: Lactic Acid Level 1.58 Height, Weight, BMI Height: 5'4.00" Weight: 215lbs. 0.0oz. 97.227210sd; 31.73 BMI Method: Lactic Acid Level Laboratory Tests Test 04/13/23 16:40 Lactic Acid Level 1.58 MMOL/L (0.50-2.00) Exam Exam Patient acknowledged, consented, and participated in this virtual visit which was conducted using real time audio/video Vital Signs Date Time Temp Pulse Resp B/P (MAP) Pulse Ox O2 Delivery O2 Flow Rate FiO2 04/13/23 18:45 37.9 80 98 21 04/13/23 18:38 36.5 64 16 121/96 (104) 99 Room Air 04/13/23 18:15 100 18 128/78 98 Room Air 04/13/23 15:34 37.9 80 18 126/43 (70) 98 Room Air Height & Weight Height: 5'4.00" Weight: 215lbs. 0.0oz. 97.543892ez; 31.73 BMI Method: General Appearance: Anxious, Chronically ill, Mild Distress, Obese Capillary Refill: Less Than 3 Seconds Gastrointestinal: normal bowel sounds, non tender, soft; No distended, No guarding, No rebound Results Lab Laboratory Tests 04/13/23 15:42 Assessment/Plan Assessment/Plan as above Critical Care: Critically Ill Patient Time spent with patient (mins): 30 DIANA MACARIO MD Apr 13, 2023 19:43
[2023-04-13] MEDS: DOCUSATE SODIUM 100 MG CAPSULE PO SCH (20:15)
[2023-04-13] MEDS: SENNOSIDES 8.6 MG (SENOKOT) TAB PO SCH (20:15)
[2023-04-13] MEDS: inSUlin ASPART 1 UNIT/0.01 ML (PER UNIT) SC SCH (20:46)
[2023-04-13] MEDS: VANCOMYCIN 125 MG CAPSULE PO SCH (20:56)
[2023-04-13] MEDS: oxyCODONE IMMEDIATE RELEASE 5 MG TABLET PO PRN (20:56)
[2023-04-13] MEDS: CHOLESTYRAMINE LITE 4 GM PACKET PO SCH (20:57)
[2023-04-13 22:19] LABS: CALCIUM 8.4 MG/DL (8.5-10.1)
[2023-04-13 22:23] LABS: CREATININE SERUM 2.05 MG/DL (0.60-1.30)
[2023-04-14 04:20] LABS: BASOPHILS # (AUTO) 0.1 10^3/uL (0.0-0.1); BASOPHILS % (AUTO) 1 % (0-10); EOSINOPHILS % (AUTO) 0 % (0-10); HEMATOCRIT 28 % (35-52); HEMOGLOBIN 9.9 g/dL (11.5-16.0); LYMPHOCYTES # (AUTO) 1.4 10^3/uL (1.0-4.0); LYMPHOCYTES % (AUTO) 5 % (12-44); MEAN CORPUSCULAR HEMOGLOBIN 27 pg (25-34); MEAN CORPUSCULAR HGB CONC 36 g/dL (32-36); MEAN CORPUSCULAR VOLUME 76 fL (80-99); MEAN PLATELET VOLUME 11.8 fL (9.0-12.2); MONOCYTES # (AUTO) 1.7 10^3/uL (0.0-1.0); MONOCYTES % (AUTO) 7 % (0-12); NEUTROPHILS # (AUTO) 22.6 10^3/uL (1.8-7.8); NEUTROPHILS % (AUTO) 84 % (42-75); PLATELET COUNT 212 10^3/uL (130-400); WHITE BLOOD COUNT 26.9 10^3/uL (4.3-11.0)
[2023-04-14 04:45] LABS: ALANINE AMINOTRANSFERASE 20 U/L (0-55); ALBUMIN 2.1 GM/DL (3.2-4.5); ALKALINE PHOSPHATASE 82 U/L (40-136); BILIRUBIN,TOTAL 0.6 MG/DL (0.1-1.0); BUN/CREATININE RATIO 22; CARBON DIOXIDE 17 MMOL/L (21-32); CHLORIDE 104 MMOL/L (98-107); CHOLESTEROL 74 MG/DL (< 200); CREATININE SERUM 1.89 MG/DL (0.60-1.30); GFR ESTIMATED 27; GLUCOSE 104 MG/DL (70-105); HDL CHOLESTEROL < 15 MG/DL (40-60); MAGNESIUM 1.9 MG/DL (1.6-2.4); PHOSPHORUS 3.5 MG/DL (2.3-4.7); POTASSIUM 3.3 MMOL/L (3.6-5.0); SODIUM 129 MMOL/L (135-145); TOTAL PROTEIN 4.2 GM/DL (6.4-8.2); TRIGLYCERIDES 100 MG/DL (<150); VLDL CHOLESTEROL 20 MG/DL (5-40)
[2023-04-14] MEDS: NS IV 1000 ML 1,000 ML IV SCH ×3 (05:05→19:03)
[2023-04-14] MEDS: inSUlin ASPART 1 UNIT/0.01 ML (PER UNIT) SC SCH ×4 (05:24→21:00)
[2023-04-14] MEDS: POTASSIUM CHLORIDE 20 MEQ TABLET PO SCH ×3 (05:29→08:54)
[2023-04-14] MEDS: POTASSIUM CL 10MEQ/50ML IVPB 50 ML IV SCH (05:29)
[2023-04-14] MEDS: MAGNESIUM 1 GM/100 ML IVPB 100 ML IV SCH ×3 (05:29→06:18)
[2023-04-14] MEDS: CHOLESTYRAMINE LITE 4 GM PACKET PO SCH (06:08)
[2023-04-14] MEDS: CEFEPIME INJECTION 1,000 MG in NS (IVPB) 50 ML 50 ML IV SCH ×2 (06:09→19:03)
--- NOTE | 2023-04-14 08:04 | Consultation-Cardiology ---
HPI-Cardiology Cardiology Consultation Date of Consultation 04/14/23 Date of Admission Time Seen by Provider: 08:01 Indication: Elevated troponin HPI 82 years old with history of hypertension, has been having diarrhea for the past few days, has been having multiple falls and generalized weakness questionable syncope. Patient came into the emergency room after she was found sitting in diarrhea at home with severe weakness. Patient was in acute renal failure with electrolyte imbalance in addition to elevation in troponin level. She denied any chest pain or shortness of breath no palpitation. Home Medications & Allergies Allergies: Coded Allergies: codeine (Verified Allergy, Unknown, 04/23/16) Home Medication List Reviewed: Yes HPL-Ejgeyq-Frtprs Hx Patient Social History Marital Status: single Employed/Student: retired Smoking Status: Never a Smoker Alcohol Use?: No Immunizations Up To Date Date of Pneumonia Vaccine: May 29, 2014 Past Medical History Discussed below Family Medical History Significant Family History: No Pertinent Family Hx Review of Systems-General Review of Systems Constitutional: see HPI, dizziness, malaise, weakness EENTM: no symptoms reported Respiratory: no symptoms reported Cardiovascular: no symptoms reported Gastrointestinal: diarrhea Genitourinary: no symptoms reported Musculoskeletal: back pain, joint pain Skin: no symptoms reported Psychiatric/Neurological: Anxiety, Depressed All Other Systems Reviewed Negative Unless Noted: Yes Reviewed Test Results Reviewed Test Results Lab Laboratory Tests Test 04/13/23 15:42 04/13/23 15:56 04/13/23 16:40 04/13/23 16:56 Range/Units White Blood Count 29.6 H 4.3-11.0 10^3/uL Red Blood Count 4.31 3.80-5.11 10^6/uL Hemoglobin 11.6 11.5-16.0 g/dL Hematocrit 33 L 35-52 % Mean Corpuscular Volume 77 L 80-99 fL Mean Corpuscular Hemoglobin 27 25-34 pg Mean Corpuscular Hemoglobin Concent 35 32-36 g/dL Red Cell Distribution Width 16.5 H 10.0-14.5 % Platelet Count 251 130-400 10^3/uL Mean Platelet Volume 12.7 H 9.0-12.2 fL Immature Granulocyte % (Auto) 4 % Neutrophils (%) (Auto) 87 H 42-75 % Lymphocytes (%) (Auto) 5 L 12-44 % Monocytes (%) (Auto) 4 0-12 % Eosinophils (%) (Auto) 0 0-10 % Basophils (%) (Auto) 0 0-10 % Neutrophils # (Auto) 25.8 H 1.8-7.8 10^3/uL Lymphocytes # (Auto) 1.4 1.0-4.0 10^3/uL Monocytes # (Auto) 1.2 H 0.0-1.0 10^3/uL Eosinophils # (Auto) 0.1 0.0-0.3 10^3/uL Basophils # (Auto) 0.0 0.0-0.1 10^3/uL Immature Granulocyte # (Auto) 1.1 H 0.0-0.1 10^3/uL Neutrophils % (Manual) 89 % Lymphocytes % (Manual) 5 % Monocytes % (Manual) 6 % Poikilocytosis SLIGHT Anisocytosis SLIGHT Prothrombin Time 14.6 12.2-14.7 SEC INR Comment 1.1 0.8-1.4 Activated Partial Thromboplast Time 29 24-35 SEC Sodium Level 129 L 135-145 MMOL/L Potassium Level 2.6 L 3.6-5.0 MMOL/L Chloride Level 97 L 98-107 MMOL/L Carbon Dioxide Level 22 21-32 MMOL/L Anion Gap 10 5-14 MMOL/L Blood Urea Nitrogen 39 H 7-18 MG/DL Creatinine 2.31 H 0.60-1.30 MG/DL Estimat Glomerular Filtration Rate 21 BUN/Creatinine Ratio 17 Glucose Level 113 H 70-105 MG/DL Calcium Level 9.1 8.5-10.1 MG/DL Corrected Calcium 10.1 8.5-10.1 MG/DL Magnesium Level 2.2 1.6-2.4 MG/DL Total Bilirubin 0.7 0.1-1.0 MG/DL Aspartate Amino Transf (AST/SGOT) 43 H 5-34 U/L Alanine Aminotransferase (ALT/SGPT) 23 0-55 U/L Alkaline Phosphatase 99 40-136 U/L Troponin I 0.336 *H <0.028 NG/ML Total Protein 5.8 L 6.4-8.2 GM/DL Albumin 2.7 L 3.2-4.5 GM/DL Lipase 15 8-78 U/L Influenza Type A (RT-PCR) Not Detected Not Detecte Influenza Type B (RT-PCR) Not Detected Not Detecte SARS-CoV-2 RNA (RT-PCR) Not Detected Not Detecte Lactic Acid Level 1.58 0.50-2.00 MMOL/L Urine Color YELLOW Urine Clarity CLEAR Urine pH 5.5 5-9 Urine Specific [place] 1.025 H 1.016-1.022 Urine Protein 2+ H NEGATIVE Urine Glucose (UA) NEGATIVE NEGATIVE Urine Ketones NEGATIVE NEGATIVE Urine Nitrite NEGATIVE NEGATIVE Urine Bilirubin 1+ H NEGATIVE Urine Urobilinogen 1.0 < = 1.0 MG/DL Urine Leukocyte Esterase NEGATIVE NEGATIVE Urine RBC (Auto) 1+ H NEGATIVE Urine RBC 2-5 H /HPF Urine WBC 5-10 H /HPF Urine Squamous Epithelial Cells 2-5 /HPF Urine Crystals NONE /LPF Urine Bacteria MODERATE H /HPF Urine Casts PRESENT /LPF Urine Hyaline Casts 10-25 H /LPF Urine Mucus NEGATIVE /LPF Urine Culture Indicated YES Test 04/13/23 20:45 04/13/23 22:03 04/14/23 03:57 Range/Units Glucometer 122 H 70-110 MG/DL Sodium Level 133 L 129 L 135-145 MMOL/L Potassium Level 3.0 L 3.3 L 3.6-5.0 MMOL/L Chloride Level 102 104 98-107 MMOL/L Carbon Dioxide Level 19 L 17 L 21-32 MMOL/L Anion Gap 12 8 5-14 MMOL/L Blood Urea Nitrogen 40 H 42 H 7-18 MG/DL Creatinine 2.05 H 1.89 H 0.60-1.30 MG/DL Estimat Glomerular Filtration Rate 24 27 BUN/Creatinine Ratio 20 22 Glucose Level 114 H 104 70-105 MG/DL Calcium Level 8.4 L 8.0 L 8.5-10.1 MG/DL White Blood Count 26.9 H 4.3-11.0 10^3/uL Red Blood Count 3.63 L 3.80-5.11 10^6/uL Hemoglobin 9.9 L 11.5-16.0 g/dL Hematocrit 28 L 35-52 % Mean Corpuscular Volume 76 L 80-99 fL Mean Corpuscular Hemoglobin 27 25-34 pg Mean Corpuscular Hemoglobin Concent 36 32-36 g/dL Red Cell Distribution Width 16.6 H 10.0-14.5 % Platelet Count 212 130-400 10^3/uL Mean Platelet Volume 11.8 9.0-12.2 fL Immature Granulocyte % (Auto) 4 % Neutrophils (%) (Auto) 84 H 42-75 % Lymphocytes (%) (Auto) 5 L 12-44 % Monocytes (%) (Auto) 7 0-12 % Eosinophils (%) (Auto) 0 0-10 % Basophils (%) (Auto) 1 0-10 % Neutrophils # (Auto) 22.6 H 1.8-7.8 10^3/uL Lymphocytes # (Auto) 1.4 1.0-4.0 10^3/uL Monocytes # (Auto) 1.7 H 0.0-1.0 10^3/uL Eosinophils # (Auto) 0.0 0.0-0.3 10^3/uL Basophils # (Auto) 0.1 0.0-0.1 10^3/uL Immature Granulocyte # (Auto) 0.9 H 0.0-0.1 10^3/uL Corrected Calcium 9.5 8.5-10.1 MG/DL Phosphorus Level 3.5 2.3-4.7 MG/DL Magnesium Level 1.9 1.6-2.4 MG/DL Total Bilirubin 0.6 0.1-1.0 MG/DL Aspartate Amino Transf (AST/SGOT) 27 5-34 U/L Alanine Aminotransferase (ALT/SGPT) 20 0-55 U/L Alkaline Phosphatase 82 40-136 U/L Troponin I 0.263 H <0.028 NG/ML Total Protein 4.2 L 6.4-8.2 GM/DL Albumin 2.1 L 3.2-4.5 GM/DL Triglycerides Level 100 <150 MG/DL Cholesterol Level 74 < 200 MG/DL LDL Cholesterol Direct 43 1-129 MG/DL VLDL Cholesterol 20 5-40 MG/DL HDL Cholesterol < 15 L 40-60 MG/DL Physical Exam Physical Exam Vital Signs Vital Signs - First Documented 04/13/23 04/13/23 04/14/23 15:34 18:45 07:20 Temp 37.9 Pulse 80 Resp 18 B/P (MAP) 126/43 (70) Pulse Ox 98 O2 Delivery Room Air O2 Flow Rate 0.00 FiO2 21 Capillary Refill : Less Than 3 Seconds Height, Weight, BMI Height: 5'4.00" Weight: 215lbs. 0.0oz. 97.588406qj; 31.73 BMI Method: General Appearance: No Apparent Distress, WD/WN, Chronically ill Eyes: Bilateral Eye Normal Inspection, Bilateral Eye PERRL HEENT: PERRL/EOMI, Normal ENT Inspection, Pharynx Normal Neck: Full Range of Motion, Normal Inspection, Non Tender, Supple, Carotid Bruit Respiratory: Chest Non Tender, Lungs Clear, Normal Breath Sounds, No Accessory Muscle Use, No Respiratory Distress Cardiovascular: Regular Rate, Rhythm, No Edema, No Gallop, No JVD, No Murmur, Normal Peripheral Pulses, Tachycardia Gastrointestinal: Normal Bowel Sounds, No Organomegaly, No Pulsatile Mass, Non Tender, Soft Back: Normal Inspection, No CVA Tenderness, No Vertebral Tenderness Extremity: Normal Capillary Refill, Normal Inspection, Normal Range of Motion, Non Tender, No Calf Tenderness, No Pedal Edema Neurologic/Psychiatric: Alert, Oriented x3, No Motor/Sensory Deficits, 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 Norm as Tested, Abnormal Gait, Depressed Affect, Motor Weakness (generalized) Skin: Normal Color, Warm/Dry Lymphatic: No Adenopathy A/P-Cardiology Admission Diagnosis Non-ST elevation myocardial infarction Coronary artery disease Acute renal failure Dehydration Assessment/Plan Non-ST elevation myocardial infarction, type II myocardial infarction Mild elevation in troponin, no acute EKG changes Trending down at this point Most probably secondary to severe hypotension with dehydration and diarrhea I will evaluate 2D echo Acute renal failure, secondary to dehydration, receiving IV fluid Electrolyte imbalance. Managed and followed by primary care physician Diarrhea, dehydration. Managed and followed by primary care physician Anemia, leukocytosis. Continue to monitor JEANNETTE INMAN MD Apr 14, 2023 08:04
--- NOTE | 2023-04-14 08:22 | Diagnostic Imaging Report ---
EXAMINATION: Chest 1 view HISTORY: Hypoxia COMPARISON: 04/13/2023 FINDINGS: The lungs are clear without edema or pneumonia. No pleural effusion or pneumothorax. Heart size is normal. There is retained line in the right chest wall extending into the subclavian vein and superior vena cava likely from a prior port. IMPRESSION: 1. Clear lungs. Dictated by: Dictated on workstation # [id number]
[2023-04-14] MEDS: SENNOSIDES 8.6 MG (SENOKOT) TAB PO SCH ×2 (08:38→21:00)
[2023-04-14] MEDS: DOCUSATE SODIUM 100 MG CAPSULE PO SCH ×2 (08:38→21:00)
--- NOTE | 2023-04-14 08:54 | Physical Therapy Evaluation ---
PT Evaluation-General Medical Diagnosis Admission Date Apr 13, 2023 at 18:14 Medical Diagnosis: NSTEMI Onset Date: Apr 13, 2023 Therapy Diagnosis Therapy Diagnosis: generalized weakness/impaired mobility Height/Weight Height (Feet): 5 Height (Inches): 4.00 Weight (Pounds): 215 Weight (Ounces): 0.0 Precautions Precautions/Isolations: Fall Prevention, Standard Precautions, Pressure Ulcer Weight Bear Status Weight Bearing/Tolerated Left Lower Extremity: Left Weight Bearing/Tolerated Referral Physician: Debbie Reason for Referral: Evaluation/Treatment Medical History Pertinent Medical History: HTN, Hypothroidism Current History EMS secondary to fall Reviewed History: Yes Social History Home: Apartment Current Living Status: Alone Entry Into Home: Level Entry Prior Prior Level of Function SCALE: Activities may be completed with or without assistive devices. 1-Ewmrohgfpm-hxwqopg completes the activity by him/herself with no assistance from a helper. 5-Set-up or Clean-up Assistance-helper sets up or cleans up; patient completes activity. [place] assists only prior to or following the activity. 4-Supervision or Touching Assistance-helper provides verbal cues and/or touching/steadying and/or contact guard assistance as patient completes activity. Assistance may be provided throughout the activity or intermittently. 3-Partial/Moderate Assistance-helper does LESS THAN HALF the effort. [place] lifts, holds or supports trunk or limbs, but provides less than half the effort. 2-Substantial/Maximal Assistance-helper does MORE THAN HALF the effort. [place] lifts or holds trunk or limbs and provides more than half the effort. 6-Dpchbnyxe-rvyent does ALL the effort. Patient does none of the effort to complete the activity. Or, the assistance of 2 or more helpers is required for the patient to complete the activity. If activity was not attempted, code reason: 7-Patient Refused. 9-Not Applicable-not attempted and the patient did not perform the activity before the current illness, exacerbation or injury. 10-Not Attempted due to Environmental Limitations-(lack of equipment, weather restraints, etc.). 88-Not Attempted due to Medical Conditions or Safety Concerns. Bed Mobility: 6 Transfers (B,C,W/C): 6 Gait: 6 Indoor Mobility (Ambulation): Independent Prior Devices Use: Walker, Other-see list below (cane) per patient report PT Evaluation-Current Subjective Patient reports she can't move. Reluctantly agrees to therapy. Yells with any bilateral LE movement (total assist) Pain Numeric Pain Scale: 10-Worst Possible Pain Location: Right, Left Location Body Site: Knee ROM/Strength ROM Lower Extremities bilateral LE limited due to yelling in pain Strength Lower Extremities 3-/5 grossly bilateral LE (no formal testing due to patient's inability to comply) Integumentary/Posture Bladder Incontinence: Barber Cath Posture trunk flexed posture Neuromuscular (Tone, Coordination, Reflexes) diminished due to inability to assist/comply with assisting with testing Sensory Vision: Functional Hearing: Functional Transfers Lying to Sitting/Side of Bed(Q: 1 Sit to Stand (QC): 1 Chair/Pgh-hz-Mmsbd Xfer(QC): 1 dependent assist of 2 with patient not assisting with any mobility Balance Sitting Static: Poor Sitting Dynamic: Poor Standing Static: Poor Standing Dynamic: Poor Assessment/Needs Patient will benefit from skilled PT to address functional strength and mobility to improve current LOF. Patient currently is not assisting with any gross motor skills, however, is able to feed self. Rehab Potential: Guarded PT Short Term Goals Short Term Goals Time Frame: May 06, 2023 Roll Left & Right: 3 Sit to lyin Lying to sitting on side of be: 3 Sit to stand: 2 Chair/cvs-lg-frjtz transfer: 2 PT Machine Shorthand Reporter Goals Fpc Goals PT Machine Shorthand Reporter Goals Time Frame: May 14, 2023 Roll Left & Right (QC): 4 Sit to Lying (QC): 4 Lying-Sitting on Side/Bed(QC): 4 Sit to Stand (QC): 4 Chair/Btw-yz-Wihja Xfer(QC): 4 Toilet Transfer (QC): 4 Car Transfer (QC): 4 Walk 10 feet (QC): 4 Walk 50ft with 2 Turns (QC): 4 PT Plan Problem List Problem List: Activity Tolerance, Functional Strength, Safety, Balance, Gait, Transfer, Bed Mobility, ROM Treatment/Plan Treatment Plan: Continue Plan of Care Treatment Plan: Bed Mobility, Education, Functional Activity [place], Functional Strength, Gait, Safety, Therapeutic Exercise, Transfers Treatment Duration: May 14, 2023 Frequency: 5 times per week Estimated Hrs Per Day: .25 hour per day Time Time In: 820 Time Out: 844 DATE: Apr 14, 2023 Total Billed Treatment Time: 24 Total Billed Treatment 1 visit EVHighC 12 min FA 12 min YEYO DAMON PT Apr 14, 2023 08:54
--- NOTE | 2023-04-14 08:57 | Occupational Therapy Eval ---
OT Evaluation-General/PLF Medical Diagnosis Admission Date Apr 13, 2023 at 18:14 Medical Diagnosis: Severe hypovolemia from severe diarrhea Onset Date: Apr 13, 2023 Therapy Diagnosis Therapy Diagnosis: debility, confusion Height/Weight Height (Feet): 5 Height (Inches): 4.00 Weight (Pounds): 215 Weight (Ounces): 0.0 Precautions Precautions/Isolations: Fall Prevention, Standard Precautions, Pressure Ulcer Referral Referral Reason: Activity Tolerance, Self Care, Evaluation/Treatment, Strengthening/ROM Medical History Additional Medical History 82-year-old female who was found down at home sitting in diarrhea reporting severe weakness. Apparently she has had a large amount of diarrhea the last few days and was found to have acute kidney injury with dehydration and hyponatremia with hypokalemia. She also had an elevated troponin likely a type II [place] and cardiology has been consulted. She met criteria to be in the ICU. IV fluids will be given along with empiric vancomycin oral 4 times daily regimen for empiric coverage of C. difficile colitis. Slight UTI noted Current History C/O pain to all 4 extremities, severe weakness, motor planning difficulty Social History Home: Single Level Current Living Status: Alone Entry Into Home: Level Entry ADL-Prior Level of Function SCALE: Activities may be completed with or without assistive devices. 9-Scyubphijt-yuwliix completes the activity by him/herself with no assistance from a helper. 5-Set-up or Clean-up Assistance-helper sets up or cleans up; patient completes activity. [place] assists only prior to or following the activity. 4-Supervision or Touching Assistance-helper provides verbal cues and/or touching/steadying and/or contact guard assistance as patient completes activity. Assistance may be provided throughout the activity or intermittently. 3-Partial/Moderate Assistance-helper does LESS THAN HALF the effort. [place] lifts, holds or supports trunk or limbs, but provides less than half the effort. 2-Substantial/Maximal Assistance-helper does MORE THAN HALF the effort. [place] lifts or holds trunk or limbs and provides more than half the effort. 4-Qdjfeedol-qwsvcr does ALL the effort. Patient does none of the effort to complete the activity. Or, the assistance of 2 or more helpers is required for the patient to complete the activity. If activity was not attempted, code reason: 7-Patient Refused. 9-Not Applicable-not attempted and the patient did not perform the activity before the current illness, exacerbation or injury. 10-Not Attempted due to Environmental Limitations-(lack of equipment, weather restraints, etc.). 88-Not Attempted due to Medical Conditions or Safety Concerns. ADL PLOF Comments Patient reports she uses a cane and does all ADLS herself Self Care: Independent Functional Cognition: Independent Patient reports she pulls her pant legs to lift legs to move in bed Drive Self: No OT Current Status Subjective Agreeable to OT, however demonstrated little motivation to participate Pain Numeric Pain Scale: 7 Comment: c/o pain in all 4 extremities Mental Status/Objective Patient Orientation: Person, Place Attachments: Barber Catheter, IV, Oxygen, Telemetry Current Upper Extremity ROM Unable to determine AROM d/t patient not following instruction, observed patient feed self, however patient did not follow instruction for placing hands in arm rest to push up for transfer, does not move own blanket off bed Upper Extremity Coordination FAIR- Upper Extremity Strength -3/5 ADL-Treatment Eating (QC): 5 Oral Hygiene (QC): 3 Shower/Bathe Self (QC): 88 Upper Body Dressing (QC): 2 Lower Body Dressing (QC): 1 On/Off Footwear (QC): 1 Toileting Hygiene (QC): 1 Education OT Patient Education: Correct positioning, Exercise program, Modified ADL techniques, Progress toward Goal/Update tx plan, Purpose of tx/functional activities, Reviewed precautions, Rehab process, Safety issues, Transfer techniques Teaching Recipient: Patient Teaching Methods: Demonstration, Discussion Response to Teaching: Reinforcement Needed OT Correction Goals Community Product Specialist Goals Oral Hygiene (QC): 5 Toileting Hygiene (QC): 5 Shower/Bathe Self (QC): 5 Upper Body Dressing (QC): 5 Lower Body Dressing (QC): 5 On/Off Footwear (QC): 5 1=Demonstrate adherence to instructed precautions during ADL tasks. 2=Patient will verbalize/demonstrate understanding of assistive devices/modifications for ADL. 3=Patient will improve strength/tolerance for activity to enable patient to perform ADL's. OT Education/Plan Problem List/Assessment Assessment: Decreased Activ Tolerance, Decreased Safety Aware, Decreased UE Strength, Dependent Transfers, Impaired Bed Mobility, Impaired Cognition, Impaired Coordination, Impaired Funct Balance, Impaired I ADL's, Impaired Self- Care Skills Discharge Recommendations Plan/Recommendations: Continue POC Therapy Discharge Recommendati: Post Acute OT Treatment Plan/Plan of Care Treatment,Training & Education: Yes Patient would benefit from OT for education, treatment and training to promote independence in ADL's, mobility, safety and/or upper extremity function for ADL's. Plan of Care: ADL Retraining, Cognitive Retraining, Concurrent Therapy, Fu nctional Mobility, Group Exercise/Act as Ind, UE Funct Exercise/Act, UE Neuromus Re-Ed/Coord Treatment Duration: Apr 18, 2023 Frequency: 3 times per week (3-5 times per week) Estimated Hrs Per Day: .25 hour per day Agreement: Yes Rehab Potential: Fair Sitting upright in recliner eating breakfast, 2 person vs Gloria transfer. All needs met Time Start Time: 08:35 Stop Time: 08:45 DATE: Apr 14, 2023 Total Time Billed (hr/min): 10 Billed Treatment Time [facility] 10 min DORY MANCILLA OT Apr 14, 2023 08:57
[2023-04-14] MEDS ORDERED: VANCOMYCIN INJECTION 0.1 MG in NS (IVPB) 250 ML 250 ML IV SCH (09:15)
[2023-04-14] MEDS ORDERED: VANCOMYCIN 1500MG/300ML PREMIX IV NR (09:30)
[2023-04-14] MEDS: VANCOMYCIN 125 MG CAPSULE PO SCH ×4 (09:37→21:58)
--- NOTE | 2023-04-14 09:39 | Tele-ICU Progress Note ---
Subjective Date Seen by a Provider: Apr 14, 2023 Time Seen by a Provider: 09:38 Subjective/Events-last exam 1 Sepsis Event Evaluation Height, Weight, BMI Height: 5'4.00" Weight: 215lbs. 0.0oz. 97.545926nj; 31.73 BMI Method: Focused Exam Lactate Level 04/13/23 16:40: Lactic Acid Level 1.58 Exam Exam Patient acknowledged, consented, and participated in this virtual visit which was conducted using real time audio/video Vital Signs Date Time Temp Pulse Resp B/P (MAP) Pulse Ox O2 Delivery O2 Flow Rate FiO2 04/14/23 09:00 79 142/72 (95) 97 Room Air 04/14/23 08:22 36.0 04/14/23 08:00 66 155/65 (95) 96 Room Air 04/14/23 07:20 96 Room Air 0.00 04/14/23 07:15 73 04/14/23 07:00 63 156/71 (99) 98 Room Air 04/14/23 06:00 65 135/64 (87) 97 Room Air 04/14/23 05:00 70 129/63 (93) 95 Room Air 04/14/23 04:00 66 134/63 (86) 95 Room Air 04/14/23 03:30 95 Room Air 04/14/23 03:00 66 119/55 (76) 95 Room Air 04/14/23 02:25 72 134/59 (80) 96 Room Air 04/14/23 02:17 72 93/45 (56) 96 Room Air 04/14/23 02:00 80 97/37 (55) 94 Room Air 04/14/23 01:00 90 92/40 (65) 95 Room Air 04/14/23 01:00 69 04/14/23 00:24 98 Room Air 04/14/23 00:00 82 102/38 (57) 98 Room Air 04/13/23 23:00 85 117/49 (71) 98 Room Air 04/13/23 22:00 86 105/48 (82) 96 Room Air 04/13/23 21:00 94 96/47 (65) 98 Room Air 04/13/23 20:21 36.5 04/13/23 20:10 94 102/65 (87) 94 Room Air 04/13/23 20:00 98 Room Air 04/13/23 20:00 90 83/64 (74) 97 Room Air 04/13/23 19:40 105 126/62 (103) Room Air 04/13/23 19:30 84 99/79 (86) 91 Room Air 04/13/23 19:20 111 133/122 (129) Room Air 04/13/23 19:10 102 129/77 (88) 98 Room Air 04/13/23 19:00 114 04/13/23 19:00 114 79/49 (66) 93 Room Air 04/13/23 18:45 37.9 80 98 21 04/13/23 18:38 36.5 64 16 121/96 (104) 99 Room Air 04/13/23 18:15 100 18 128/78 98 Room Air 04/13/23 15:34 37.9 80 18 126/43 (70) 98 Room Air I & O 04/14/23 07:00 Intake Total 1750 ml Output Total 425 ml Balance 1325 ml Height & Weight Height: 5'4.00" Weight: 215lbs. 0.0oz. [id number]; 31.73 BMI Method: General Appearance: No Apparent Distress, WD/WN, Chronically ill HEENT: PERRL/EOMI, Normal ENT Inspection, Pharynx Normal Neck: Full Range of Motion, Normal Inspection, Non Tender, Supple, Carotid Bruit Respiratory: Chest Non Tender, Lungs Clear, Normal Breath Sounds, No Accessory Muscle Use, No Respiratory Distress Cardiovascular: Regular Rate, Rhythm, No Edema, No Gallop, No JVD, No Murmur, Normal Peripheral Pulses, Tachycardia Capillary Refill: Less Than 3 Seconds Gastrointestinal: normal bowel sounds, non tender, soft; No distended, No guarding, No rebound Extremity: Normal Capillary Refill, Normal Inspection, Normal Range of Motion, Non Tender, No Calf Tenderness, No Pedal Edema Neurologic/Psychiatric: Alert, Oriented x3, No Motor/Sensory Deficits, 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
[2023-04-14] MEDS ORDERED: ASPI-1238 PO (12:31)
[2023-04-14] MEDS: DICLOFENAC 1% GEL 50 GM TUBE TOP SCH ×3 (12:31→21:58)
[2023-04-14] MEDS ORDERED: LISI40TA9 PO (12:31)
[2023-04-14] MEDS: oxyCODONE IMMEDIATE RELEASE 5 MG TABLET PO PRN ×2 (12:34→19:03)
--- NOTE | 2023-04-14 12:58 | Progress Note ---
ALESHA MAYA 04/14/23 1258: Subjective Date Seen by a Provider: Apr 14, 2023 Time Seen by a Provider: 08:45 Subjective/Events-last exam Patient was doing well and is currently feeling fine. Is not experiencing any fever or chills. Having left knee pain and right forearm pain. She had breakfast without any issues. No nausea or vomiting. She did have a BM and stated it was not diarrhea. Patient has been able to ambulate a bit, but she has pain in her right knee whenever the nurses help her get up from chair to bed. Not having any issues with the IVs or catheter. Very cooperative and pleasant to talk to. She had a left breast surgery in the past. Mother had cervical cancer and father had heart disease. Had a brother and sister of which she could not recall any medical history. Recently found out she has another brother she never knew about and is hoping to meet him sometime in the upcoming months. Review of Systems General: No Chills, No Night Sweats, No Fatigue, No Malaise, No Appetite, No Other HEENT: No Head Aches, No Visual Changes, No Eye Pain, No Ear Pain, No Dysphasia, No Sinus Congestion, No Post Nasal Drip, No Sore Throat, No Other Pulmonary: No Dyspnea, No Cough, No Pleuritic Chest Pain, No Other Cardiovascular: No: Chest Pain, Palpitations, Orthopnea, Paroxysmal Noc. Dyspnea, Edema, Lt Headedness, Other Gastrointestinal: No: Nausea, Vomiting, Abdominal Pain, Diarrhea, Constipation, Melena, Hematochezia, Other Genitourinary: No Dysuria, No Frequency, No Incontinence, No Hematuria, No Retention, No Other Musculoskeletal: arm pain (Left forearm), leg pain (Right knee); No: other, neck pain, shoulder pain, back pain, hand pain, foot pain Neurological: No: Weakness, Numbness, Incoordination, Change in speech, Confusion, Seizures, Other Focused Exam Lactate Level 04/13/23 16:40: Lactic Acid Level 1.58 Objective Exam Last Set of Vital Signs Vital Signs Date Time Temp Pulse Resp B/P (MAP) Pulse Ox O2 Delivery O2 Flow Rate FiO2 04/14/23 12:25 75 04/14/23 12:10 97 Room Air 04/14/23 12:00 138/75 (96) 04/14/23 11:57 36.7 04/14/23 07:20 0.00 04/13/23 18:45 21 04/13/23 18:38 16 Capillary Refill : Less Than 3 Seconds I&O Intake and Output 04/13/23 23:59 Intake Total 1350 ml Output Total 150 ml Balance 1200 ml Intake Oral 250 ml IV Total 1100 ml Output Urine Total 150 ml # Bowel Movements 1 Daily Weight Change Yes, 2-13 lbs General: Alert, Oriented X3, Cooperative, No Acute Distress HEENT: Atraumatic, PERRLA, EOMI, Mucous Memb Moist/[place] Lungs: Clear to Auscultation, Normal Air Movement Heart: Regular Rate, Normal S1, Normal S2, No Murmurs Extremities: No Clubbing, No Cyanosis, Normal Pulses Neuro: Normal Speech Psych/Mental Status: Mental Status NL, Mood NL Results Lab Laboratory Tests 04/13/23 15:42: White Blood Count 29.6H, Red Blood Count 4.31, Hemoglobin 11.6, Hematocrit 33L, Mean Corpuscular Volume 77L, Mean Corpuscular Hemoglobin 27, Mean Corpuscular Hemoglobin Concent 35, Red Cell Distribution Width 16.5H, Platelet Count 251, Mean Platelet Volume 12.7H, Immature Granulocyte % (Auto) 4, Neutrophils (%) (Auto) 87H, Lymphocytes (%) (Auto) 5L, Monocytes (%) (Auto) 4, Eosinophils (%) (Auto) 0, Basophils (%) (Auto) 0, Neutrophils # (Auto) 25.8H, Lymphocytes # (Auto) 1.4, Monocytes # (Auto) 1.2H, Eosinophils # (Auto) 0.1, Basophils # (Auto) 0.0, Immature Granulocyte # (Auto) 1.1H, Neutrophils % (Manual) 89, Lymphocytes % (Manual) 5, Monocytes % (Manual) 6, Poikilocytosis SLIGHT, Anisocytosis SLIGHT, Prothrombin Time 14.6, INR Comment 1.1, Activated Partial Thromboplast Time 29, Sodium Level 129L, Potassium Level 2.6L, Chloride Level 97L, Carbon Dioxide Level 22, Anion Gap 10, Blood Urea Nitrogen 39H, Creatinine 2.31H, Estimat Glomerular Filtration Rate 21, BUN/Creatinine Ratio 17, Glucose Level 113H, Calcium Level 9.1, Corrected Calcium 10.1, Magnesium Level 2.2, Total Bilirubin 0.7, Aspartate Amino Transf (AST/SGOT) 43H, Alanine Aminotransferase (ALT/SGPT) 23, Alkaline Phosphatase 99, Troponin I 0.336*H, Total Protein 5.8L, Albumin 2.7L, Lipase 15 04/13/23 15:56: Influenza Type A (RT-PCR) Not Detected, Influenza Type B (RT-PCR) Not Detected, SARS-CoV-2 RNA (RT-PCR) Not Detected 04/13/23 16:40: Lactic Acid Level 1.58 04/13/23 16:56: Urine Color YELLOW, Urine Clarity CLEAR, Urine pH 5.5, Urine Specific [place] 1.025H, Urine Protein 2+H, Urine Glucose (UA) NEGATIVE, Urine Ketones NEGATIVE, Urine Nitrite NEGATIVE, Urine Bilirubin 1+H, Urine Urobilinogen 1.0, Urine Leukocyte Esterase NEGATIVE, Urine RBC (Auto) 1+H, Urine RBC 2-5H, Urine WBC 5- 10H, Urine Squamous Epithelial Cells 2-5, Urine Crystals NONE, Urine Bacteria MODERATEH, Urine Casts PRESENT, Urine Hyaline Casts 10-25H, Urine Mucus NEGATIVE, Urine Culture Indicated YES 04/13/23 20:45: Glucometer 122H 04/13/23 22:03: Sodium Level 133L, Potassium Level 3.0L, Chloride Level 102, Carbon Dioxide Level 19L, Anion Gap 12, Blood Urea Nitrogen 40H, Creatinine 2.05H, Estimat Glomerular Filtration Rate 24, BUN/Creatinine Ratio 20, Glucose Level 114H, Calcium Level 8.4L 04/14/23 03:57: Sodium Level 129L, Potassium Level 3.3L, Chloride Level 104, Carbon Dioxide Level 17L, Anion Gap 8, Blood Urea Nitrogen 42H, Creatinine 1.89H, Estimat Glomerular Filtration Rate 27, BUN/Creatinine Ratio 22, Glucose Level 104, Calcium Level 8.0L, White Blood Count 26.9H, Red Blood Count 3.63L, Hemoglobin 9.9L, Hematocrit 28L, Mean Corpuscular Volume 76L, Mean Corpuscular Hemoglobin 27, Mean Corpuscular Hemoglobin Concent 36, Red Cell Distribution Width 16.6H, Platelet Count 212, Mean Platelet Volume 11.8, Immature Granulocyte % (Auto) 4, Neutrophils (%) (Auto) 84H, Lymphocytes (%) (Auto) 5L, Monocytes (%) (Auto) 7, Eosinophils (%) (Auto) 0, Basophils (%) (Auto) 1, Neutrophils # (Auto) 22.6H, Lymphocytes # (Auto) 1.4, Monocytes # (Auto) 1.7H, Eosinophils # (Auto) 0.0, Basophils # (Auto) 0.1, Immature Granulocyte # (Auto) 0.9H, Corrected Calcium 9.5, Phosphorus Level 3.5, Magnesium Level 1.9, Total Bilirubin 0.6, Aspartate Amino Transf (AST/SGOT) 27, Alanine Aminotransferase (ALT/SGPT) 20, Alkaline Phosphatase 82, Troponin I 0.263H, Total Protein 4.2L, Albumin 2.1L, Triglycerides Level 100, Cholesterol Level 74, LDL Cholesterol Direct 43, VLDL Cholesterol 20, HDL Cholesterol < 15L 04/14/23 10:56: Glucometer 89 Microbiology 04/13/23 Blood Culture - Preliminary, Resulted Gram Positive Cocci in Chains 04/13/23 Urine Culture - Preliminary, Resulted Culture In Progress Assessment/Plan Assessment/Plan Assess & Plan/Chief Complaint Assessment: Severe hypovolemia secondary to severe diarrhea Found done at home - possible fall due to knee pain Sepsis secondary to bacteremia and UTI NSTEMI, Type II [place] BRIAN Hyponatremia Hypokalemia Hypothyroidism Left knee OA Hx of HTN Emotional problems Profound leukocytosis Anemia Plan: Continue IVF Continue antibiotics & Questran Pain management Awaiting urine culture Monitor in ICU INGRIS RYAN DO 04/16/23 0632: Supervisory-Addendum Brief Verification & Attestation Participated in pt care: history, MDM, physical Personally performed: exam, history, MDM, supervision of care Care discussed with: Medical Student Procedures: n/a Results interpretation: Verified all documentation Verification and Attestation of Medical Student E/M Service A medical student performed and documented this service in my presence. I reviewed and verified all information documented by the medical student and made modifications to such information, when appropriate. I personally performed the physical exam and medical decision making. Ingris Ryan, Apr 16, 2023,06:30 ALESHA MAYA Apr 14, 2023 12:58 INGRIS RYAN DO Apr 16, 2023 06:32
[2023-04-14] MEDS ORDERED: CHOLESTYRAMINE LITE 4 GM PACKET PO SCH (14:00)
[2023-04-14] MEDS ORDERED: meTOprolol INJECTION 5 MG/5 ML VIAL ONE (14:33)
[2023-04-14] MEDS ORDERED: meTOprolol INJECTION 5 MG/5 ML VIAL IV NR ×2 (15:00→16:45)
[2023-04-14] MEDS ORDERED: dilTIAZem ER 120 MG CAPSULE PO NR (18:45)
[2023-04-15] MEDS: oxyCODONE IMMEDIATE RELEASE 5 MG TABLET PO PRN ×3 (03:23→16:16)
[2023-04-15] MEDS: NS IV 1000 ML 1,000 ML IV SCH (03:40)
[2023-04-15 05:10] LABS: BASOPHILS # (AUTO) 0.1 10^3/uL (0.0-0.1); BASOPHILS % (AUTO) 0 % (0-10); EOSINOPHILS # (AUTO) 0.2 10^3/uL (0.0-0.3); EOSINOPHILS % (AUTO) 1 % (0-10); HEMATOCRIT 27 % (35-52); HEMOGLOBIN 9.3 g/dL (11.5-16.0); LYMPHOCYTES # (AUTO) 1.7 10^3/uL (1.0-4.0); LYMPHOCYTES % (AUTO) 6 % (12-44); MEAN CORPUSCULAR HEMOGLOBIN 27 pg (25-34); MEAN CORPUSCULAR HGB CONC 34 g/dL (32-36); MEAN CORPUSCULAR VOLUME 78 fL (80-99); MEAN PLATELET VOLUME 11.2 fL (9.0-12.2); MONOCYTES # (AUTO) 1.8 10^3/uL (0.0-1.0); MONOCYTES % (AUTO) 6 % (0-12); NEUTROPHILS # (AUTO) 23.7 10^3/uL (1.8-7.8); NEUTROPHILS % (AUTO) 82 % (42-75); PLATELET COUNT 260 10^3/uL (130-400); WHITE BLOOD COUNT 28.9 10^3/uL (4.3-11.0)
[2023-04-15 05:33] LABS: BILIRUBIN,TOTAL 0.7 MG/DL (0.1-1.0); CREATININE SERUM 1.3 MG/DL (0.60-1.30); PHOSPHORUS 3.3 MG/DL (2.3-4.7); POTASSIUM 4.1 MMOL/L (3.6-5.0); TOTAL PROTEIN 4.8 GM/DL (6.4-8.2)
[2023-04-15] MEDS: MAGNESIUM 1 GM/100 ML IVPB 100 ML IV SCH (06:00)
[2023-04-15] MEDS: POTASSIUM CL 10MEQ/50ML IVPB 50 ML IV SCH (06:00)
[2023-04-15] MEDS: inSUlin ASPART 1 UNIT/0.01 ML (PER UNIT) SC SCH ×4 (06:00→20:30)
[2023-04-15] MEDS: POTASSIUM CHLORIDE 20 MEQ TABLET PO SCH (06:00)
[2023-04-15] MEDS: CEFEPIME INJECTION 1,000 MG in NS (IVPB) 50 ML 50 ML IV SCH ×3 (06:16→20:39)
[2023-04-15] MEDS: SENNOSIDES 8.6 MG (SENOKOT) TAB PO SCH ×2 (08:37→20:38)
[2023-04-15] MEDS: DOCUSATE SODIUM 100 MG CAPSULE PO SCH ×2 (08:37→20:38)
[2023-04-15] MEDS: VANCOMYCIN 125 MG CAPSULE PO SCH (08:45)
[2023-04-15] MEDS: DICLOFENAC 1% GEL 50 GM TUBE TOP SCH ×4 (08:45→20:39)
--- NOTE | 2023-04-15 09:43 | Diagnostic Imaging Report ---
INDICATION: Hypoxia COMPARISON: 04/14/2023 FINDINGS: Single frontal view of the chest demonstrates stable heart size and pulmonary vascularity. The lungs are well aerated and clear. No large pleural effusion or pneumothorax is seen. The visualized osseous structures show no acute abnormalities. Right subclavian Port-A-Cath is noted. IMPRESSION: 1. No acute cardiopulmonary process. Dictated by: Dictated on workstation # [id number]
--- NOTE | 2023-04-15 09:53 | Cardiology Progress Note ---
Subjective Date Seen by Provider: Apr 15, 2023 Time Seen by Provider: 09:50 Subjective/Events-last exam Patient is laying down in bed, feeling better. No new complaint Review of Systems General: No Chills, No Night Sweats; Fatigue; No Malaise, No Appetite, No Other HEENT: No Head Aches, No Visual Changes, No Eye Pain, No Ear Pain, No Dysphasia, No Sinus Congestion, No Post Nasal Drip, No Sore Throat, No Other Pulmonary: No Dyspnea, No Cough, No Pleuritic Chest Pain, No Other Cardiovascular: No: Chest Pain, Palpitations, Orthopnea, Paroxysmal Noc. Dyspnea, Edema, Lt Headedness, Other Focused Exam Lactate Level 04/13/23 16:40: Lactic Acid Level 1.58 Objective-Cardiology Exam Last Set of Vital Signs Vital Signs 04/13/23 04/13/23 04/14/23 04/15/23 18:38 18:45 07:20 09:00 Pulse 80 Resp 16 B/P (MAP) 114/53 (66) Pulse Ox 93 O2 Delivery Room Air O2 Flow Rate 0.00 FiO2 21 I&O Intake and Output 04/15/23 00:00 Intake Total 3800 ml Output Total 1075 ml Balance 2725 ml Intake Oral 2250 ml IV Total 1550 ml Output Urine Total 1075 ml General: Alert, Oriented X3, Cooperative, No Acute Distress HEENT: Atraumatic, PERRLA, EOMI, Mucous Memb Moist/[place] Neck: Supple Lungs: Clear to Auscultation, Normal Air Movement Heart: Regular Rate, Normal S1, Normal S2, No Murmurs Extremities: No Clubbing, No Cyanosis, Normal Pulses Neuro: Normal Speech Psych/Mental Status: Mental Status NL, Mood NL Results Lab Laboratory Tests 04/15/23 04:20 A/P-Cardiology Admission Diagnosis Non-ST elevation myocardial infarction Coronary artery disease Acute renal failure Dehydration Assessment/Plan Non-ST elevation myocardial infarction, type II myocardial infarction Mild elevation in troponin, no acute EKG changes Trending down at this point Most probably secondary to severe hypotension with dehydration and diarrhea 2D echo was done on April 14, 2023 with moderate LVH, ejection fraction 60 to 65%, grade 1 diastolic dysfunction, mild mitral regurgitation, PA pressure 40 to 45 mmHg, aortic valve sclerosis, mild aortic regurgitation Multiple episodes of paroxysmal atrial tachycardia, Started on Cardizem CD 120 mg daily in addition to the metoprolol. Continue to monitor Acute renal failure, secondary to dehydration, receiving IV fluid Electrolyte imbalance. Managed and followed by primary care physician Diarrhea, dehydration. Managed and followed by primary care physician Anemia, leukocytosis. Managed by primary care team JEANNETTE INMAN MD Apr 15, 2023 09:52
[2023-04-15] MEDS ORDERED: VANCOMYCIN 1 GM/NS 250 ML IVPB IV SCH ×2 (11:00)
[2023-04-15 11:29] LABS: ABSOLUTE RETIC # 28 10e9/uL (24-90); RETICULOCYTE % 0.82 % (0.50-2.40)
--- NOTE | 2023-04-15 11:31 | Tele-ICU Progress Note ---
Subjective Date Seen by a Provider: Apr 15, 2023 Time Seen by a Provider: 11:30 Subjective/Events-last exam (Tele-ICU Physician , Progress Note ) Service provided via interactive audio and video telecommunications E-CARE system to a patient admitted to ICU bed in [facility]. Patient is seen today due to persistent need of ICU care Available chart/ vitals / labs / Images reviewed Video assessment done using teleICU camera, rest of exam as per RN Discussed with RN Events overnight : Afebrile hemodynamically stable Respiratory - I/O = Drips: Pressors- no Hospital course: (04/13) 82yr old female admitted with AMS, BRIAN, NSTEMI, hypokalemia and a fall with left knee pain. 04/14- AAO , intermittent a fib A/P BRIAN - due to dehydration -decrease IVF Diarrhea of undetermined etiology - rule out any C. difficile colitis - NONE last 12 h inpatient - cx not sent bacteremia - G[facility] chains 09/30 04/13- strep ag - cont abx for now s/p fall - left knee pain pain - images done in ER - no acute fr Elevated troponin, intermittent a fib - as per cards consulted Anemia -needs to rule out any iron deficiency - no active bleeding , monitor Lines : periph , (Central Line Necessity Reviewed) Barber: +04/14 Nutrition: Analgesia: Anxiety/ delirium VTE Prophylaxis: hep sq Stress Ulcer Prophylaxis: na Lines : , (Central Line Necessity Reviewed) Barber: OG: Nutrition: Analgesia: Anxiety/ delirium VTE Prophylaxis: Stress Ulcer Prophylaxis: Plans in collaboration with bedside consultants and IM MDs. Discussed with RN to reach out if any questions or concerns Case and care daily discussed on multidisciplinary rounds ( RN, PharmD, Garnishment Specialist , Respiratory Therapy, mend worker ) A total of 10 minutes of critical care time was devoted to this patient today, required to treat and/or prevent further deterioration of critical care condition ( as above ) . I am remotely monitoring this patient from another state. I am unable to do the bedside exam, and history/physical and pertinent information is taken from other notes in the computer and bedside staff. Sepsis Event Evaluation Height, Weight, BMI Height: 5'4.00" Weight: 215lbs. 0.0oz. 97.774247ul; 38.42 BMI Method: Focused Exam Lactate Level 04/13/23 16:40: Lactic Acid Level 1.58 Exam Exam Patient acknowledged, consented, and participated in this virtual visit which was conducted using real time audio/video Vital Signs Date Time Temp Pulse Resp B/P (MAP) Pulse Ox O2 Delivery O2 Flow Rate FiO2 04/15/23 11:00 75 109/62 (83) 99 Room Air 04/15/23 10:00 76 109/64 (88) 95 Room Air 04/15/23 09:00 80 114/53 (66) 93 Room Air 04/15/23 08:00 36.2 04/15/23 08:00 78 93/70 (79) 96 Room Air 04/15/23 08:00 97 Room Air 04/15/23 07:00 77 108/52 (65) 97 Room Air 04/15/23 07:00 77 04/15/23 06:00 61 124/62 (82) 95 Room Air 04/15/23 05:00 102 132/71 (91) 97 Room Air 04/15/23 04:00 95 Room Air 04/15/23 04:00 101 117/59 (78) 96 Room Air 04/15/23 03:00 66 147/53 (84) 93 Room Air 04/15/23 02:00 53 127/45 (72) 94 Room Air 04/15/23 01:00 63 125/43 (70) 96 Room Air 04/15/23 01:00 60 04/15/23 00:00 62 121/43 (69) 96 Room Air 04/14/23 23:59 96 Room Air 04/14/23 23:29 35.8 04/14/23 23:00 64 123/46 (71) 96 Room Air 04/14/23 22:00 66 122/66 (84) 93 Room Air 04/14/23 21:00 66 123/110 (114) 94 Room Air 04/14/23 20:00 97 Room Air 04/14/23 20:00 68 116/50 (72) 93 Room Air 04/14/23 19:37 36.4 Room Air 04/14/23 19:11 92 Room Air 04/14/23 19:00 68 96/69 (78) 94 Room Air 04/14/23 19:00 71 04/14/23 18:00 67 122/57 (78) 94 Room Air 04/14/23 17:30 69 103/56 (72) 95 Room Air 04/14/23 17:00 131 94 Room Air 04/14/23 16:00 73 133/94 (107) 94 Room Air 04/14/23 16:00 96 Room Air 04/14/23 15:48 36.6 04/14/23 15:36 36.6 04/14/23 15:00 68 138/61 (86) 94 Room Air 04/14/23 14:00 71 169/99 (122) 97 Room Air 04/14/23 13:00 71 156/77 (103) 98 Room Air 04/14/23 12:25 75 04/14/23 12:10 97 Room Air 04/14/23 12:00 78 138/75 (96) 96 Room Air 04/14/23 11:57 36.7 I & O 04/15/23 07:00 Intake Total 3875 ml Output Total 1300 ml Balance 2575 ml Height & Weight Height: 5'4.00" Weight: 215lbs. 0.0oz. 97.128720lv; 38.42 BMI Method: General Appearance: No Apparent Distress, WD/WN, Chronically ill HEENT: PERRL/EOMI, Normal ENT Inspection, Pharynx Normal Neck: Full Range of Motion, Normal Inspection, Non Tender, Supple, Carotid Bruit Respiratory: Chest Non Tender, Lungs Clear, Normal Breath Sounds, No Accessory Muscle Use, No Respiratory Distress Cardiovascular: Regular Rate, Rhythm, No Edema, No Gallop, No JVD, No Murmur, Normal Peripheral Pulses, Tachycardia Capillary Refill: Less Than 3 Seconds Gastrointestinal: normal bowel sounds, non tender, soft; No distended, No guarding, No rebound Extremity: Normal Capillary Refill, Normal Inspection, Normal Range of Motion, Non Tender, No Calf Tenderness, No Pedal Edema Neurologic/Psychiatric: Alert, Oriented x3, No Motor/Sensory Deficits, bus driver/monitor II- XII Norm as Tested, Abnormal Gait, Depressed Affect, Motor Weakness (generalize d) Skin: Normal Color, Warm/Dry Lymphatic: No Adenopathy Results Lab Laboratory Tests 04/13/23 15:42 04/13/23 22:03 04/14/23 03:57 04/15/23 04:20 Assessment/Plan Assessment/Plan 1 ZONIA FOOTE MD Apr 15, 2023 11:31
--- NOTE | 2023-04-15 11:52 | Physical Therapy Daily Note ---
PT Daily Note-Current Pain Section J - Health Conditions 1. Rarely or not at all 2. Occasionally 3. Frequently 4. Almost constantly 8. Unable to answer Pain Effect on Sleep: 4 Pain Interference with Therapy: 4 Pain Interference w/Day-to-Day: 4 Mental Status Patient Orientation: Person, Place Attachments: Barber Catheter, IV Transfers SCALE: Activities may be completed with or without assistive devices. 5-Kckeddwxum-kmuljit completes the activity by him/herself with no assistance from a helper. 5-Set-up or Clean-up Assistance-helper sets up or cleans up; patient completes activity. [place] assists only prior to or following the activity. 4-Supervision or Touching Assistance-helper provides verbal cues and/or touching/steadying and/or contact guard assistance as patient completes activity. Assistance may be provided throughout the activity or intermittently. 3-Partial/Moderate Assistance-helper does LESS THAN HALF the effort. [place] lifts, holds or supports trunk or limbs, but provides less than half the effort. 2-Substantial/Maximal Assistance-helper does MORE THAN HALF the effort. [place] lifts or holds trunk or limbs and provides more than half the effort. 8-Urirsiexy-fnqyvk does ALL the effort. Patient does none of the effort to complete the activity. Or, the assistance of 2 or more helpers is required for the patient to complete the activity. If activity was not attempted, code reason: 7-Patient Refused. 9-Not Applicable-not attempted and the patient did not perform the activity before the current illness, exacerbation or injury. 10-Not Attempted due to Environmental Limitations-(lack of equipment, weather restraints, etc.). 88-Not Attempted due to Medical Conditions or Safety Concerns. Lying to Sitting/Side of Bed(Q: 1 (x 2) Sit to Stand (QC): 1 (x 2) Chair/Dlu-iw-Kbpow Xfer(QC): 1 (x 2) attempted sit to stand to FWW, however, patient not assisting with any movement on this date Weight Bearing Weight Bearing/Tolerated Left Lower Extremity: Left Weight Bearing/Tolerated Exercises Supine Ex: Ankle pumps, Heel Slides, Straight leg raise Supine Reps: 15 (AAROM with patient yelling with all ROM) Seated Therapy Exercises: Long arc quads Seated Reps: 15 (AAROM with patient yelling with all ROM) Assessment Patient remains dependent of 2 with all mobility and is not actively perform exercise/ROM bilateral LE due to pain but does not rate. Patient does resist by leaning back when attempting to perform sit to stand to FWW and with all upright mobility. Patient not progressing at this time. PT Short Term Goals Short Term Goals Time Frame: May 06, 2023 Roll Left & Right: 3 Sit to lyin Lying to sitting on side of be: 3 Sit to stand: 2 Chair/wzi-hy-rhxji transfer: 2 PT Assembly Line Worker Goals Nursing Home Goals PT Assembly Line Worker Goals Time Frame: May 14, 2023 Roll Left & Right (QC): 4 Sit to Lying (QC): 4 Lying-Sitting on Side/Bed(QC): 4 Sit to Stand (QC): 4 Chair/Dmm-ux-Zahlf Xfer(QC): 4 Toilet Transfer (QC): 4 Car Transfer (QC): 4 Walk 10 feet (QC): 4 Walk 50ft with 2 Turns (QC): 4 PT Plan Treatment/Plan Treatment Plan: Continue Plan of Care Treatment Plan: Bed Mobility, Education, Functional Activity [place], Functional Strength, Gait, Safety, Therapeutic Exercise, Transfers Treatment Duration: May 14, 2023 Frequency: 5 times per week Estimated Hrs Per Day: .25 hour per day Time Time In: 1120 Time Out: 1143 DATE: Apr 15, 2023 Total Billed Treatment Time: 23 Total Billed Treatment 1 visit EX 9 min FA 14 min YEYO DAMON PT Apr 15, 2023 11:52
[2023-04-15 11:53] LABS: BAND NEUTROPHILS 0 %; NEUTROPHILS % (MANUAL) 89 %
[2023-04-15 11:54] LABS: ANISOCYTOSIS SLIGHT; BASOPHILS % (MANUAL) 0 %; EOSINOPHILS % (MANUAL) 0 %; LYMPHOCYTES % (MANUAL) 5 %; MONOCYTES % (MANUAL) 6 %; POLYCHROMASIA SLIGHT; TARGET CELLS SLIGHT
--- NOTE | 2023-04-15 12:02 | Occupational Ther Daily Note ---
OT Current Status-Daily Note Subjective Eating and resting in bed, oriented to place, time and situation, gives inconsistent report of PLOF and days in bed. Pain Numeric Pain Scale: 5-Moderate Pain Location: Left Location Body Site: Knee Comment: Todd is fearful of pain and therefore does not move her extremities Mental Status/Objective Patient Orientation: Person, Place, Time, Situation Attachments: Oxygen, SCD's, Telemetry HISTORY OF CANCER AND LEFT LYMPHOMA, LUE INCREASED IN EDEMA AND PAIN ADL-Treatment Therapy Code Descriptions/Definitions Functional [place] Measure: 0=Not Assessed/NA 4=Minimal Assistance 1=Total Assistance 5=Supervision or Setup 2=Maximal Assistance 6=Modified [place] 3=Moderate Assistance 7=Complete IndependenceSCALE: Activities may be completed with or without assistive devices. 8-Urxbckcune-wmrpynr completes the activity by him/herself with no assistance from a helper. 5-Set-up or Clean-up Assistance-helper sets up or cleans up; patient completes activity. [place] assists only prior to or following the activity. 4-Supervision or Touching Assistance-helper provides verbal cues and/or touching/steadying and/or contact guard assistance as patient completes activity. Assistance may be provided throughout the activity or intermittently. 3-Partial/Moderate Assistance-helper does LESS THAN HALF the effort. [place] lifts, holds or supports trunk or limbs, but provides less than half the effort. 2-Substantial/Maximal Assistance-helper does MORE THAN HALF the effort. [place] lifts or holds trunk or limbs and provides more than half the effort. 9-Ckxdstxqu-fhfzux does ALL the effort. Patient does none of the effort to complete the activity. Or, the assistance of 2 or more helpers is required for the patient to complete the activity. If activity was not attempted, code reason: 7-Patient Refused. 9-Not Applicable-not attempted and the patient did not perform the activity before the current illness, exacerbation or injury. 10-Not Attempted due to Environmental Limitations-(lack of equipment, weather restraints, etc.). 88-Not Attempted due to Medical Conditions or Safety Concerns. Eating (QC): 6 Oral Hygiene (QC): 5 Shower/Bathe Self (QC): 7 Upper Body Dressing (QC): 2 Lower Body Dressing (QC): 1 On/Off Footwear: 1 Toileting Hygiene (QC): 1 Toilet Transfer (QC): 1 Other Treatment Sitting in recliner for BUE ROM, functional reach, LUE positioning and isometric exercises, Instructed patient to perform hourly Education OT Patient Education: Correct positioning, Exercise program, Modified ADL techniques, Progress toward Goal/Update tx plan, Purpose of tx/functional activities, Reviewed precautions, Safety issues, Transfer techniques, Use of adapted equipment Teaching Recipient: Patient Teaching Methods: Demonstration Response to Teaching: Reinforcement Needed OT Rn Perinatal Goals Senior Care Goals Oral Hygiene (QC): 5 Toileting Hygiene (QC): 5 Shower/Bathe Self (QC): 5 Upper Body Dressing (QC): 5 Lower Body Dressing (QC): 5 On/Off Footwear (QC): 5 1=Demonstrate adherence to instructed precautions during ADL tasks. 2=Patient will verbalize/demonstrate understanding of assistive devices/modifications for ADL. 3=Patient will improve strength/tolerance for activity to enable patient to perform ADL's. OT Education/Plan Problem List/Assessment Assessment: Decreased Activ Tolerance, Decreased UE Strength, Dependent Transfers, Impaired Bed Mobility, Impaired Cognition, Impaired Coordination, Impaired Funct Balance, Impaired Self-Care Skills, Restricted Funct UE ROM Discharge Recommendations Plan/Recommendations: Continue POC Treatment Plan/Plan of Care Patient would benefit from OT for education, treatment and training to promote independence in ADL's, mobility, safety and/or upper extremity function for ADL's. Plan of Care: ADL Retraining, Cognitive Retraining, Concurrent Therapy, Functional Mobility, Group Exercise/Act as Ind, UE Funct Exercise/Act, UE Neuromus Re-Ed/Coord Treatment Duration: Apr 18, 2023 Frequency: 3 times per week (3-5 times per week) Estimated Hrs Per Day: .25 hour per day Agreement: Yes Rehab Potential: Fair Time Start Time: 11:20 Stop Time: 11:23 DATE: Apr 15, 2023 Total Time Billed (hr/min): 23 Billed Treatment Time ADL, EX 23 min DORY MANCILLA OT Apr 15, 2023 12:02
--- NOTE | 2023-04-15 12:04 | Progress Note ---
ALESHA MAYA 04/15/23 1204: Subjective Date Seen by a Provider: Apr 15, 2023 Time Seen by a Provider: 08:45 Subjective/Events-last exam Patient is doing fine. Having no fever, chills, nausea, or vomiting. Is still having right knee pain and left arm pain. Has not been able to get up and ambulate since yesterday morning. Patient did experience multiple episodes of paroxysmal atrial tachycardia yesterday and cardiology was consulted with her this morning and started her on Cardizem 120mg daily in addition to the metoprolol. She has not had a BM since the last time two days ago. Review of Systems General: No Chills, No Night Sweats, No Fatigue, No Malaise, No Appetite, No Other HEENT: No Head Aches, No Visual Changes, No Eye Pain, No Ear Pain, No D ysphasia, No Sinus Congestion, No Post Nasal Drip, No Sore Throat, No Other Pulmonary: No Dyspnea, No Cough, No Pleuritic Chest Pain, No Other Cardiovascular: No: Chest Pain, Palpitations, Orthopnea, Paroxysmal Noc. Dyspnea, Edema, Lt Headedness, Other Gastrointestinal: No: Nausea, Vomiting, Abdominal Pain, Diarrhea, Constipation, Melena, Hematochezia, Other Genitourinary: No Dysuria, No Frequency, No Incontinence, No Hematuria, No Retention, No Other Musculoskeletal: arm pain, leg pain Neurological: No: Weakness, Numbness, Incoordination, Change in speech, Confusion, Seizures, Other Focused Exam Lactate Level 04/13/23 16:40: Lactic Acid Level 1.58 Objective Exam Last Set of Vital Signs Vital Signs Date Time Temp Pulse Resp B/P (MAP) Pulse Ox O2 Delivery O2 Flow Rate FiO2 04/15/23 11:00 75 109/62 (83) 99 Room Air 04/15/23 08:00 36.2 04/14/23 07:20 0.00 04/13/23 18:45 21 04/13/23 18:38 16 Capillary Refill : Less Than 3 Seconds I&O Intake and Output 04/15/23 00:00 Intake Total 3800 ml Output Total 1075 ml Balance 2725 ml Intake Oral 2250 ml IV Total 1550 ml Output Urine Total 1075 ml General: Alert, Oriented X3, Cooperative, No Acute Distress HEENT: Atraumatic, PERRLA, EOMI, Mucous Memb Moist/[place] Extremities: No Clubbing, No Cyanosis, Normal Pulses Neuro: Normal Speech Psych/Mental Status: Mental Status NL, Mood NL Results Lab Laboratory Tests 04/14/23 15:35: Glucometer 93 04/14/23 20:56: Glucometer 127H 04/15/23 04:20: White Blood Count 28.9H, Red Blood Count 3.50L, Hemoglobin 9.3L, Hematocrit 27L, Mean Corpuscular Volume 78L, Mean Corpuscular Hemoglobin 27, Mean Corpuscular Hemoglobin Concent 34, Red Cell Distribution Width 17.2H, Platelet Count 260, Mean Platelet Volume 11.2, Immature Granulocyte % (Auto) 5, Neutrophils (%) (Auto) 82H, Lymphocytes (%) (Auto) 6L, Monocytes (%) (Auto) 6, Eosinophils (%) (Auto) 1, Basophils (%) (Auto) 0, Neutrophils # (Auto) 23.7H, Lymphocytes # (Auto) 1.7, Monocytes # (Auto) 1.8H, Eosinophils # (Auto) 0.2, Basophils # (Auto) 0.1, Immature Granulocyte # (Auto) 1.3H, Neutrophils % (Manual) 89, Lymphocytes % (Manual) 5, Monocytes % (Manual) 6, Eosinophils % (Manual) 0, Basophils % (Manual) 0, Band Neutrophils 0, Percent Immature Platelet Fraction 6.2, Polychromasia SLIGHT, Anisocytosis SLIGHT, Target Cells SLIGHT, Absolute Reticulocyte Count 28, Percent Reticulocyte Count 0.82, Sodium Level 128L, Potassium Level 4.1, Chloride Level 106, Carbon Dioxide Level 13L, Anion Gap 9, Blood Urea Nitrogen 35H, Creatinine 1.30, Estimat Glomerular Filtration Rate 42, BUN/Creatinine Ratio 27, Glucose Level 85, Calcium Level 8.0L, Corrected Calcium 9.6, Phosphorus Level 3.3, Magnesium Level 2.0, Total Bilirubin 0.7, Aspartate Amino Transf (AST/SGOT) 28, Alanine Aminotransferase (ALT/SGPT) 20, Alkaline Phosphatase 83, Lactate Dehydrogenase 257H, Total Protein 4.8L, Albumin 2.0L 04/15/23 10:39: Glucometer 130H Microbiology 04/13/23 MRSA Screen - Final, Complete MRSA not isolated 04/13/23 Blood Culture - Preliminary, Resulted Strep agalactiae Group B 04/13/23 Urine Culture - Preliminary, Resulted Culture In Progress Assessment/Plan Assessment/Plan Assess & Plan/Chief Complaint Assessment: Severe hypovolemia secondary to severe diarrhea Multiple episodes of paroxysmal atrial tachycardia managed by form setter supervisor Found done at home - possible fall due to knee pain Sepsis secondary to bacteremia and UTI NSTEMI, Type II DE BRIAN Hyponatremia Hypokalemia resolved Hypothyroidism Left knee OA Hx of HTN Emotional problems Profound leukocytosis Anemia Plan: Continue IVF Continue antibiotics & [facility] Pain management Awaiting urine culture Move to 4th floor Peripheral blood smear [facility] lab INGRIS RYAN DO 04/16/23 0649: Supervisory-Addendum Brief Verification & Attestation Participated in pt care: history, MDM, physical Personally performed: exam, history, MDM, supervision of care Care discussed with: Medical Student Procedures: n/a Results interpretation: Verified all documentation Verification and Attestation of Medical Student E/M Service A medical student performed and documented this service in my presence. I reviewed and verified all information documented by the medical student and made modifications to such information, when appropriate. I personally performed the physical exam and medical decision making. Ingris Ryan, Apr 16, 2023,06:49 ALESHA MAYA Apr 15, 2023 12:04 INGRIS RYAN DO Apr 16, 2023 06:49
[2023-04-15 16:13] VITALS: BP 134/54
[2023-04-15 20:36] VITALS: BP 143/55
[2023-04-15] MEDS: PANTOPRAZOLE 20 MG TABLET PO SCH (20:38)
[2023-04-15] MEDS ORDERED: OMEPRAZOLE 20 MG CAPSULE (NON-FORMULARY) PO SCH (21:00)
[2023-04-16] VITALS (8 sets, daily range): BP systolic 126–151; BP diastolic 57–81
[2023-04-16] MEDS ORDERED: dilTIAZem ER 240 MG CAPSULE PO ONE (04:37)
[2023-04-16] MEDS: dilTIAZem ER 240 MG CAPSULE PO SCH (04:49)
[2023-04-16] MEDS: inSUlin ASPART 1 UNIT/0.01 ML (PER UNIT) SC SCH ×4 (05:09→19:55)
[2023-04-16] MEDS: CEFEPIME INJECTION 1,000 MG in NS (IVPB) 50 ML 50 ML IV SCH ×3 (05:13→21:51)
[2023-04-16] MEDS: LEVOTHYROXINE 88 MCG TABLET PO SCH (05:13)
[2023-04-16 05:32] LABS: BASOPHILS # (AUTO) 0.1 10^3/uL (0.0-0.1); BASOPHILS % (AUTO) 0 % (0-10); EOSINOPHILS # (AUTO) 0.3 10^3/uL (0.0-0.3); EOSINOPHILS % (AUTO) 1 % (0-10); HEMATOCRIT 26 % (35-52); HEMOGLOBIN 9.2 g/dL (11.5-16.0); LYMPHOCYTES # (AUTO) 1.9 10^3/uL (1.0-4.0); LYMPHOCYTES % (AUTO) 7 % (12-44); MEAN CORPUSCULAR HEMOGLOBIN 27 pg (25-34); MEAN CORPUSCULAR HGB CONC 36 g/dL (32-36); MEAN CORPUSCULAR VOLUME 76 fL (80-99); MEAN PLATELET VOLUME 10.8 fL (9.0-12.2); MONOCYTES % (AUTO) 7 % (0-12); NEUTROPHILS # (AUTO) 22.5 10^3/uL (1.8-7.8); NEUTROPHILS % (AUTO) 77 % (42-75); PLATELET COUNT 320 10^3/uL (130-400); WHITE BLOOD COUNT 29.3 10^3/uL (4.3-11.0)
[2023-04-16 05:50] LABS: ALBUMIN 1.9 GM/DL (3.2-4.5); POTASSIUM 4.4 MMOL/L (3.6-5.0)
[2023-04-16 05:51] LABS: CALCIUM 8.1 MG/DL (8.5-10.1)
[2023-04-16 05:52] LABS: TOTAL PROTEIN 4.7 GM/DL (6.4-8.2)
[2023-04-16 05:54] LABS: BILIRUBIN,TOTAL 1.2 MG/DL (0.1-1.0)
[2023-04-16 05:59] LABS: MAGNESIUM 1.9 MG/DL (1.6-2.4)
--- NOTE | 2023-04-16 08:28 | Diagnostic Imaging Report ---
EXAMINATION: Chest 1 view HISTORY: Hypoxia COMPARISON: 04/15/2023 FINDINGS: There is mild asymmetric right-sided edema. No pneumonia. No pleural effusion or pneumothorax. Heart size is normal. IMPRESSION: 1. Mild asymmetric right-sided edema. Dictated by: Dictated on workstation # [id number]
[2023-04-16] MEDS: SENNOSIDES 8.6 MG (SENOKOT) TAB PO SCH ×2 (09:02→19:51)
[2023-04-16] MEDS: DOCUSATE SODIUM 100 MG CAPSULE PO SCH ×2 (09:02→19:51)
[2023-04-16] MEDS: DICLOFENAC 1% GEL 50 GM TUBE TOP SCH ×4 (09:21→19:55)
[2023-04-16] MEDS ORDERED: TROUGH ORDER-PHARMACY XX ONE (10:00)
[2023-04-16] MEDS: oxyCODONE IMMEDIATE RELEASE 5 MG TABLET PO PRN ×2 (13:27→22:25)
--- NOTE | 2023-04-16 16:19 | Cardiology Progress Note ---
Cardiology SOAP Progress Note Subjective: No significant cardiac complaints Objective: I&O/Vital Signs 04/16/23 04/16/23 04/16/23 04/16/23 07:00 07:23 08:00 11:04 Temp 36.4 Pulse 92 90 Resp 18 B/P (MAP) 143/63 (89) Pulse Ox 93 93 O2 Delivery Room Air Room Air O2 Flow Rate 0.00 04/16/23 04/16/23 04/16/23 11:20 12:38 15:20 Temp 36.5 36.4 Pulse 102 104 101 Resp 18 18 B/P (MAP) 151/69 (96) 130/59 (82) Pulse Ox 94 97 O2 Delivery Room Air Room Air O2 Flow Rate 0.00 0.00 04/16/23 00:00 Intake Total 550 ml Output Total 250 ml Balance 300 ml Weight (Pounds): 215 Weight (Ounces): 0.0 Weight (Calculated Kilograms): 97.087524 Constitutional: AAO x 3 Respiratory: lungs clear to auscultation Cardiovascular: regular rate-rhythm, S1 and S2 Extremities: No pedal edema Neurologic/Psychiatric: alert, normal mood/affect, oriented x 3 Skin: normal color Results/Procedures: Labs Laboratory Tests 04/15/23 16:20: Glucometer 111H 04/15/23 20:05: Glucometer 113H 04/16/23 04:57: Glucometer 85 04/16/23 04:58: White Blood Count 29.3H, Red Blood Count 3.38L, Hemoglobin 9.2L, Hematocrit 26L, Mean Corpuscular Volume 76L, Mean Corpuscular Hemoglobin 27, Mean Corpuscular Hemoglobin Concent 36, Red Cell Distribution Width 16.8H, Platelet Count 320, Mean Platelet Volume 10.8, Immature Granulocyte % (Auto) 8, Neutrophils (%) (Auto) 77H, Lymphocytes (%) (Auto) 7L, Monocytes (%) (Auto) 7, Eosinophils (%) (Auto) 1, Basophils (%) (Auto) 0, Neutrophils # (Auto) 22.5H, Lymphocytes # (Auto) 1.9, Monocytes # (Auto) 2.0H, Eosinophils # (Auto) 0.3, Basophils # (Auto) 0.1, Immature Granulocyte # (Auto) 2.4H, Sodium Level 129L, Potassium Level 4.4, Chloride Level 107, Carbon Dioxide Level 13L, Anion Gap 9, Blood Urea Nitrogen 30H, Creatinine 1.00, Estimat Glomerular Filtration Rate 57, BUN/Creatinine Ratio 30, Glucose Level 87, Calcium Level 8.1L, Corrected Calcium 9.8, Magnesium Level 1.9, Total Bilirubin 1.2H, Aspartate Amino Transf (AST/SGOT) 32, Alanine Aminotransferase (ALT/SGPT) 21, Alkaline Phosphatase 85, Total Protein 4.7L, Albumin 1.9L 04/16/23 10:31: Glucometer 115H 04/16/23 15:23: Glucometer 108 Microbiology 04/13/23 MRSA Screen - Final, Complete MRSA not isolated 04/13/23 Blood Culture - Final, Complete Strep agalactiae Group B 04/13/23 Urine Culture - Final, Complete Strep agalactiae Group B See Comments A/P: Assessment/Dx: Non-ST elevation myocardial infarction Coronary artery disease Acute renal failure Dehydration Plan: Non-ST elevation myocardial infarction, type II myocardial infarction Mild elevation in troponin, no acute EKG changes No chest pain Most probably secondary to severe hypotension with dehydration and diarrhea 2D echo was done on April 14, 2023 with moderate LVH, ejection fraction 60 to 65%, grade 1 diastolic dysfunction, mild mitral regurgitation, PA pressure 40 to 45 mmHg, aortic valve sclerosis, mild aortic regurgitation Multiple episodes of paroxysmal atrial tachycardia, Started on Cardizem CD 120 mg daily in addition to the metoprolol. Continue to monitor Acute renal failure, secondary to dehydration, receiving IV fluid Electrolyte imbalance. Managed and followed by primary care physician Diarrhea, dehydration. Managed and followed by primary care physician Anemia, leukocytosis. Managed by primary care team Focused Exam Lactate Level 04/13/23 16:40: Lactic Acid Level 1.58 Bobo VALENTINO MD Apr 16, 2023 16:19
--- NOTE | 2023-04-16 16:41 | Progress Note - Hospitalist ---
Subjective HPI/CC On Admission Date Seen by Provider: Apr 16, 2023 Time Seen by Provider: 12:00 Chief complaint: Found down at home with hypovolemia status HPI: This is an 82-year-old female who was found down at home sitting in diarrhea reporting severe weakness. Apparently she has had a large amount of diarrhea the last few days and was found to have acute kidney injury with dehydration and hyponatremia with hypokalemia. She also had an elevated troponin likely a type II ID and cardiology has been consulted. She met criteria to be in the ICU. IV fluids will be given along with empiric vancomycin oral 4 times daily regimen for empiric coverage of C. difficile colitis. Slight UTI noted so we will continue cefepime as ER had started. Subjective/Events-last exam She is sitting in bed eating lunch. She has no complaints. She did not work with therapy today. She says she needed the day off. Focused Exam Lactate Level 04/13/23 16:40: Lactic Acid Level 1.58 Objective Exam Vital Signs Vital Signs Date Time Temp Pulse Resp B/P (MAP) Pulse Ox O2 Delivery O2 Flow Rate FiO2 04/16/23 15:20 36.4 101 18 130/59 (82) 97 Room Air 0.00 0.00 04/13/23 18:45 21 Capillary Refill : Less Than 3 Seconds General Appearance: No Apparent Distress, Obese Respiratory: Lungs Clear, No Respiratory Distress Cardiovascular: Regular Rate, Rhythm, No Murmur Gastrointestinal: Normal Bowel Sounds, Soft Extremity: Normal Inspection, Non Tender Neurologic/Psychiatric: Alert, Normal Mood/Affect Results/Procedures Lab Laboratory Tests 04/16/23 04:58 Patient resulted labs reviewed. Assessment/Plan Assessment and Plan Assess & Plan/Chief Complaint Strep agalactiae UTI Strep agalactiae bacteremia Leukocytosis Cefepime NSTEMI Cardiology following Likely type II due to bacteremia and severe sepsis Debility Obesity PT/OT SW consult, will need SNF placement HTN Anemia Hyponatremia DVT prophylaxis: Lovenox Severe sepsis, resolved BRIAN, resolved Diagnosis/Problems Diagnosis/Problems (1) Severe sepsis Status: Resolved Resolution Date/Time: 04/16/23 @ 16:44 (2) Urinary tract infection due to Streptococcus agalactiae Status: Acute (3) Bacteremia due to group B Streptococcus Status: Acute (4) NSTEMI (non-ST elevation myocardial infarction) Status: Acute (5) Debility Status: Acute (6) BRIAN (acute kidney injury) Status: Resolved Resolution Date/Time: 04/16/23 @ 16:44 MARIXA ROWAN MD Apr 16, 2023 16:41
[2023-04-16] MEDS ORDERED: dilTIAZem ER 120 MG CAPSULE PO SCH (17:00)
[2023-04-16] MEDS: ENOXAPARIN 40 MG/0.4 ML SYRINGE SC SCH (17:10)
[2023-04-16] MEDS: ACETAMINOPHEN 325 MG TABLET PO PRN (19:51)
[2023-04-16] MEDS: PANTOPRAZOLE 20 MG TABLET PO SCH (19:55)
[2023-04-16] MEDS ORDERED: NS IV 500 ML 500 ML ONE (21:06)
[2023-04-16] MEDS ORDERED: NS IV 1000 ML 1,000 ML ONE (21:06)
[2023-04-16] MEDS ORDERED: NS IV 500 ML 500 ML IV ONE (21:15)
[2023-04-16] MEDS: NS IV 1000 ML 1,000 ML IV SCH (21:52)
[2023-04-17] VITALS (7 sets, daily range): BP systolic 105–138; BP diastolic 46–62
[2023-04-17] MEDS: CEFEPIME INJECTION 1,000 MG in NS (IVPB) 50 ML 50 ML IV SCH ×3 (05:02→21:09)
[2023-04-17] MEDS: oxyCODONE IMMEDIATE RELEASE 5 MG TABLET PO PRN ×3 (05:02→23:26)
[2023-04-17] MEDS: LEVOTHYROXINE 88 MCG TABLET PO SCH (05:02)
[2023-04-17] MEDS: inSUlin ASPART 1 UNIT/0.01 ML (PER UNIT) SC SCH ×4 (05:04→20:18)
[2023-04-17] MEDS: NS IV 1000 ML 1,000 ML IV SCH ×2 (05:34→17:18)
[2023-04-17 05:37] LABS: BASOPHILS # (AUTO) 0.1 10^3/uL (0.0-0.1); BASOPHILS % (AUTO) 0 % (0-10); EOSINOPHILS # (AUTO) 0.2 10^3/uL (0.0-0.3); EOSINOPHILS % (AUTO) 1 % (0-10); HEMATOCRIT 26 % (35-52); HEMOGLOBIN 8.9 g/dL (11.5-16.0); LYMPHOCYTES # (AUTO) 1.8 10^3/uL (1.0-4.0); LYMPHOCYTES % (AUTO) 6 % (12-44); MEAN CORPUSCULAR HEMOGLOBIN 27 pg (25-34); MEAN CORPUSCULAR HGB CONC 34 g/dL (32-36); MEAN CORPUSCULAR VOLUME 77 fL (80-99); MEAN PLATELET VOLUME 10.8 fL (9.0-12.2); MONOCYTES # (AUTO) 2.3 10^3/uL (0.0-1.0); MONOCYTES % (AUTO) 7 % (0-12); NEUTROPHILS # (AUTO) 22.7 10^3/uL (1.8-7.8); NEUTROPHILS % (AUTO) 74 % (42-75); PLATELET COUNT 395 10^3/uL (130-400)
[2023-04-17 05:43] LABS: WHITE BLOOD COUNT 30.7 10^3/uL (4.3-11.0)
[2023-04-17 06:04] LABS: ALBUMIN 1.9 GM/DL (3.2-4.5); BILIRUBIN,TOTAL 1.3 MG/DL (0.1-1.0); CALCIUM 7.9 MG/DL (8.5-10.1); CREATININE SERUM 0.9 MG/DL (0.60-1.30); MAGNESIUM 1.9 MG/DL (1.6-2.4); POTASSIUM 4.5 MMOL/L (3.6-5.0); TOTAL PROTEIN 4.9 GM/DL (6.4-8.2)
--- NOTE | 2023-04-17 08:00 | Diagnostic Imaging Report ---
INDICATION: Hypoxia and dyspnea. COMPARISON: 04/16/2023. DISCUSSION: Single portable upright view of the chest was obtained. Right-sided central line is stable. Normal heart size. New patchy infiltrates within the bilateral mid lungs, likely edema or pneumonia. Mild central venous congestion is noted. No pleural fluid or pneumothorax. No osseous abnormality. IMPRESSION: 1. New bilateral mid lung infiltrates, likely edema or pneumonia. Dictated by: Dictated on workstation # [id number]
[2023-04-17] MEDS: SENNOSIDES 8.6 MG (SENOKOT) TAB PO SCH ×2 (08:59→19:57)
[2023-04-17] MEDS: dilTIAZem ER 240 MG CAPSULE PO SCH (08:59)
[2023-04-17] MEDS: DICLOFENAC 1% GEL 50 GM TUBE TOP SCH ×4 (09:00→19:58)
[2023-04-17] MEDS: DOCUSATE SODIUM 100 MG CAPSULE PO SCH ×2 (09:00→19:56)
[2023-04-17] MEDS ORDERED: RT-ALBUTEROL SULF 2.5 MG/3 ML PRE-MIX VIAL INH PRN (13:15)
--- NOTE | 2023-04-17 13:39 | Diagnostic Imaging Report ---
PROCEDURE: CT chest, abdomen, and pelvis without contrast. TECHNIQUE: Multiple contiguous axial images were obtained through the chest, abdomen, and pelvis without the use of intravenous contrast. Auto Exposure Controls were utilized during the CT exam to meet ALARA standards for radiation dose reduction. INDICATION: Chest and abdominal pain, follow-up leukocytosis. COMPARISON: Chest CT 02/24/2015. DISCUSSION: CHEST: Exam is degraded by motion. Cardiomegaly is present. Large hiatal hernia is again noted. There may be trace effusions present bilaterally. Small pericardial effusion is present. Pulmonary arteries are dilated suggesting pulmonary artery hypertension. The thoracic aorta is normal in caliber and configuration. No focal consolidation identified. No acute osseous abnormality. Abdomen/pelvis: Mild anasarca is noted. Again the exam is degraded by motion. The gallbladder is mostly contracted. The liver, pancreas, spleen, and adrenal glands are unremarkable. No renal stone or hydronephrosis. The aorta is normal in caliber and contains severe atherosclerotic plaque. Constipation is noted. Diverticulosis with no secondary evidence for diverticulitis. Uterus is unremarkable. The bladder is decompressed by Barber catheter. Trace ascites. No adenopathy. Age-indeterminate L1 compression fracture. Advanced degenerative disc disease at L4-L5. IMPRESSION: 1. Exam is degraded by motion. Mild cardiomegaly with small pericardial effusion. 2. Mild anasarca. 3. Diverticulosis and constipation. No secondary inflammatory changes. Dictated by: Dictated on workstation # [id number]
[2023-04-17] MEDS: ACETAMINOPHEN 325 MG TABLET PO PRN (13:45)
--- NOTE | 2023-04-17 14:25 | Progress Note - Hospitalist ---
Subjective HPI/CC On Admission Date Seen by Provider: Apr 17, 2023 Time Seen by Provider: 11:20 Chief complaint: Found down at home with hypovolemia status HPI: This is an 82-year-old female who was found down at home sitting in diarrhea reporting severe weakness. Apparently she has had a large amount of diarrhea the last few days and was found to have acute kidney injury with dehydration and hyponatremia with hypokalemia. She also had an elevated troponin likely a type II [place] and cardiology has been consulted. She met criteria to be in the ICU. IV fluids will be given along with empiric vancomycin oral 4 times daily regimen for empiric coverage of C. difficile colitis. Slight UTI noted so we will continue cefepime as ER had started. Subjective/Events-last exam She is having left knee pain. She has no other complaints. She denies abdominal pain. She denies shortness of breath. Objective Exam Vital Signs Vital Signs Date Time Temp Pulse Resp B/P (MAP) Pulse Ox O2 Delivery O2 Flow Rate FiO2 04/17/23 13:45 38.1 04/17/23 12:28 82 04/17/23 12:22 93 Room Air 0.00 04/17/23 12:22 21 04/17/23 11:44 18 110/49 (69) Capillary Refill : Less Than 3 Seconds General Appearance: No Apparent Distress, Obese Respiratory: Lungs Clear, No Respiratory Distress Cardiovascular: Regular Rate, Rhythm, No Murmur, Other (right chest port) Gastrointestinal: Normal Bowel Sounds, Non Tender, Soft Extremity: Normal Inspection, Pedal Edema Neurologic/Psychiatric: Alert, Normal Mood/Affect Results/Procedures Lab Laboratory Tests 04/17/23 05:02 Patient resulted labs reviewed. Imaging: Reviewed Imaging Films, Reviewed Imaging Report Assessment/Plan Assessment and Plan Assess & Plan/Chief Complaint Strep agalactiae UTI Strep agalactiae bacteremia Leukocytosis Fever Cefepime Repeat blood cultures, port culture CT CAP without evidence of other infectious source to explain leukocytosis NSTEMI Cardiology following Likely type II due to bacteremia and severe sepsis Iron defieiceny anemia History of polyps Last scope 2015, sigmoid polyp removed, recommended 2 year follow up Will need repeat colonoscopy outpatient Debility Obesity PT/OT SW consult, will need SNF placement HTN Hyponatremia DVT prophylaxis: Lovenox Severe sepsis, resolved BRIAN, resolved Diagnosis/Problems Diagnosis/Problems (1) Severe sepsis Status: Resolved Resolution Date/Time: 04/16/23 @ 16:44 (2) Urinary tract infection due to Streptococcus agalactiae Status: Acute (3) Bacteremia due to group B Streptococcus Status: Acute (4) NSTEMI (non-ST elevation myocardial infarction) Status: Acute (5) Debility Status: Acute (6) BRIAN (acute kidney injury) Status: Resolved Resolution Date/Time: 04/16/23 @ 16:44 MARIXA ROWAN MD Apr 17, 2023 14:25
[2023-04-17] MEDS: ENOXAPARIN 40 MG/0.4 ML SYRINGE SC SCH (17:18)
[2023-04-17] MEDS: PANTOPRAZOLE 20 MG TABLET PO SCH (19:56)
[2023-04-17] MEDS: RT-ALBUTEROL SULF 2.5 MG/3 ML PRE-MIX VIAL INH SCH (20:39)
[2023-04-18 03:24] VITALS: BP 115/56
[2023-04-18 04:15] LABS: BASOPHILS # (AUTO) 0.2 10^3/uL (0.0-0.1); BASOPHILS % (AUTO) 0 % (0-10); EOSINOPHILS # (AUTO) 0.2 10^3/uL (0.0-0.3); EOSINOPHILS % (AUTO) 1 % (0-10); HEMATOCRIT 24 % (35-52); HEMOGLOBIN 8.4 g/dL (11.5-16.0); LYMPHOCYTES % (AUTO) 6 % (12-44); MEAN CORPUSCULAR HEMOGLOBIN 27 pg (25-34); MEAN CORPUSCULAR HGB CONC 35 g/dL (32-36); MEAN CORPUSCULAR VOLUME 78 fL (80-99); MONOCYTES % (AUTO) 6 % (0-12); NEUTROPHILS # (AUTO) 25.7 10^3/uL (1.8-7.8); NEUTROPHILS % (AUTO) 76 % (42-75); PLATELET COUNT 394 10^3/uL (130-400)
[2023-04-18] MEDS: NS IV 1000 ML 1,000 ML IV SCH (04:23)
[2023-04-18 04:29] LABS: ALBUMIN 1.8 GM/DL (3.2-4.5); POTASSIUM 4.9 MMOL/L (3.6-5.0)
[2023-04-18 04:30] LABS: CALCIUM 7.8 MG/DL (8.5-10.1)
[2023-04-18 04:31] LABS: TOTAL PROTEIN 4.3 GM/DL (6.4-8.2)
[2023-04-18 04:33] LABS: BILIRUBIN,TOTAL 0.9 MG/DL (0.1-1.0)
[2023-04-18 04:35] LABS: CREATININE SERUM 1.06 MG/DL (0.60-1.30)
[2023-04-18] MEDS: inSUlin ASPART 1 UNIT/0.01 ML (PER UNIT) SC SCH ×4 (04:35→21:33)
[2023-04-18] MEDS: CEFEPIME INJECTION 1,000 MG in NS (IVPB) 50 ML 50 ML IV SCH (04:51)
[2023-04-18 05:10] LABS: BAND NEUTROPHILS 10 %; EOSINOPHILS % (MANUAL) 1 %; LYMPHOCYTES % (MANUAL) 8 %; METAMYELOCYTES % 1 %; MONOCYTES % (MANUAL) 9 %; MYELOCYTES % 3 %; NEUTROPHILS % (MANUAL) 66 %; PROLYMPHOCYTE % 1 %; PROMYELOCYTES % 1 %
[2023-04-18 05:11] LABS: POLYCHROMASIA SLIGHT
[2023-04-18 05:12] LABS: ANISOCYTOSIS SLIGHT; ELLIPT/OVALOCYTES SLIGHT
[2023-04-18] MEDS: LEVOTHYROXINE 88 MCG TABLET PO SCH (05:13)
[2023-04-18] MEDS: RT-ALBUTEROL SULF 2.5 MG/3 ML PRE-MIX VIAL INH SCH ×2 (07:16→21:00)
[2023-04-18 07:59] VITALS: BP 128/64
--- NOTE | 2023-04-18 08:03 | Diagnostic Imaging Report ---
INDICATION: Hypoxia. Single AP view of the chest is obtained with comparison made to study of one day earlier. FINDINGS: Heart size and pulmonary vascularity are at the upper limits of normal with increasing bilateral central pulmonary density likely representing edema or possible pneumonitis. There is no consolidation, pneumothorax or definite pleural fluid. IMPRESSION: Findings are most suggestive of developing central pulmonary edema and radiographic follow-up would be useful. Dictated by: Dictated on workstation # [id number]
[2023-04-18] MEDS: dilTIAZem ER 240 MG CAPSULE PO SCH (09:31)
[2023-04-18] MEDS: DOCUSATE SODIUM 100 MG CAPSULE PO SCH ×2 (09:31→20:27)
[2023-04-18] MEDS: SENNOSIDES 8.6 MG (SENOKOT) TAB PO SCH ×2 (09:31→20:27)
[2023-04-18] MEDS: DICLOFENAC 1% GEL 50 GM TUBE TOP SCH ×4 (09:31→21:37)
--- NOTE | 2023-04-18 09:36 | Physical Therapy Daily Note ---
PT Daily Note-Current Subjective Patient continues to yell with all touch and mobility Pain Section J - Health Conditions 1. Rarely or not at all 2. Occasionally 3. Frequently 4. Almost constantly 8. Unable to answer Pain Effect on Sleep: 4 Pain Interference with Therapy: 4 Pain Interference w/Day-to-Day: 4 Mental Status Patient Orientation: Confused Attachments: Barber Catheter, IV Transfers SCALE: Activities may be completed with or without assistive devices. 9-Bimijrlcwl-jhjtaky completes the activity by him/herself with no assistance from a helper. 5-Set-up or Clean-up Assistance-helper sets up or cleans up; patient completes activity. [place] assists only prior to or following the activity. 4-Supervision or Touching Assistance-helper provides verbal cues and/or touching/steadying and/or contact guard assistance as patient completes activity. Assistance may be provided throughout the activity or intermittently. 3-Partial/Moderate Assistance-helper does LESS THAN HALF the effort. [place] lifts, holds or supports trunk or limbs, but provides less than half the effort. 2-Substantial/Maximal Assistance-helper does MORE THAN HALF the effort. [place] lifts or holds trunk or limbs and provides more than half the effort. 8-Bbsqabcsv-ypojre does ALL the effort. Patient does none of the effort to comp lete the activity. Or, the assistance of 2 or more helpers is required for the patient to complete the activity. If activity was not attempted, code reason: 7-Patient Refused. 9-Not Applicable-not attempted and the patient did not perform the activity before the current illness, exacerbation or injury. 10-Not Attempted due to Environmental Limitations-(lack of equipment, weather restraints, etc.). 88-Not Attempted due to Medical Conditions or Safety Concerns. Sit to Stand (QC): 1 x 3 sets with nursing cleansing after BM Weight Bearing Weight Bearing/Tolerated Left Lower Extremity: Left Weight Bearing/Tolerated Assessment Patient continues to yell during all sit to stand transfers. Patient up in recliner with needs met. PT Short Term Goals Short Term Goals Time Frame: May 06, 2023 Roll Left & Right: 3 Sit to lyin Lying to sitting on side of be: 3 Sit to stand: 2 Chair/trl-ep-sjyyk transfer: 2 PT Disc Pad Knockout Worker Goals Disc Pad Knockout Worker Goals PT Usp Goals Time Frame: May 14, 2023 Roll Left & Right (QC): 4 Sit to Lying (QC): 4 Lying-Sitting on Side/Bed(QC): 4 Sit to Stand (QC): 4 Chair/Opy-lx-Ahqpa Xfer(QC): 4 Toilet Transfer (QC): 4 Car Transfer (QC): 4 Walk 10 feet (QC): 4 Walk 50ft with 2 Turns (QC): 4 PT Plan Treatment/Plan Treatment Plan: Continue Plan of Care Treatment Plan: Bed Mobility, Education, Functional Activity Lakeisha, Functional Strength, Gait, Safety, Therapeutic Exercise, Transfers Treatment Duration: May 14, 2023 Frequency: 5 times per week Estimated Hrs Per Day: .25 hour per day Time Time In: 826 Time Out: 837 DATE: Apr 18, 2023 Total Billed Treatment Time: 11 Total Billed Treatment 1 visit FA 11 min YEYO DAMON PT Apr 18, 2023 09:35
--- NOTE | 2023-04-18 10:13 | Cardiology Progress Note ---
Subjective Date Seen by Provider: Apr 18, 2023 Time Seen by Provider: 08:50 Subjective/Events-last exam Patient is sitting up in chair, complaining of generalized fatigue and weakness Objective-Cardiology Exam Last Set of Vital Signs Vital Signs 04/17/23 04/18/23 04/18/23 12:22 08:00 11:51 Temp 36.2 Pulse 94 Resp 20 B/P (MAP) 122/52 (75) Pulse Ox 96 O2 Delivery Room Air O2 Flow Rate 0.00 FiO2 21 I&O Intake and Output 04/18/23 00:00 Intake Total 2640 ml Output Total 850 ml Balance 1790 ml Intake Oral 1490 ml IV Total 1150 ml Output Urine Total 850 ml General: Alert, Oriented X3, Cooperative, No Acute Distress HEENT: Atraumatic, PERRLA, EOMI, Mucous Memb Moist/[place] Neck: Supple Lungs: Clear to Auscultation, Normal Air Movement Heart: Regular Rate, Normal S1, Normal S2, No Murmurs Extremities: No Clubbing, No Cyanosis, Normal Pulses Neuro: Normal Speech Psych/Mental Status: Mental Status NL, Mood NL Results Lab Laboratory Tests 04/18/23 04:07 A/P-Cardiology Admission Diagnosis Non-ST elevation myocardial infarction Coronary artery disease Acute renal failure Dehydration Assessment/Plan Non-ST elevation myocardial infarction, type II myocardial infarction Mild elevation in troponin, no acute EKG changes Trending down at this point Most probably secondary to severe hypotension with dehydration and diarrhea 2D echo was done on April 14, 2023 with moderate LVH, ejection fraction 60 to 65%, grade 1 diastolic dysfunction, mild mitral regurgitation, PA pressure 40 to 45 mmHg, aortic valve sclerosis, mild aortic regurgitation Multiple episodes of paroxysmal atrial tachycardia, Maintained on Cardizem CD 240 mg daily Strep agalactiae UTI with Strep agalactiae bacteremia,on IV antibiotics. I am concerned about possibility of endocarditis, will plan for RHEA on Tuesday Acute renal failure, secondary to dehydration, improved with IV fluids. Continue to monitor. Electrolyte imbalance. Managed and followed by primary care physician Diarrhea, dehydration. Improved. Managed and followed by primary care physician Anemia, leukocytosis. Dr. Sanchez consulted. Supervisory-Addendum Brief Supervisory Addendum Participated in pt care: history, MDM, physical Personally performed: exam, history, MDM Care discussed with: PA Results interpretation: Verified all documentation Notes: Patient was seen and evaluated with Corrie, examination performed, management plan was discussed, agree with the current scribed note, I made few changes to the note using Italic font Patient was seen at bedside, no new complain Still having leukocytosis, lethargic I recommend dual antibiotic treatment and plan to evaluate RHEA Monitor heart rate and blood pressure CORRIE JORDAN Apr 18, 2023 10:13 JEANNETTE INMAN MD Apr 18, 2023 13:33
[2023-04-18] MEDS ORDERED: CYANOCOBALAMIN 1000 MCG/ML 1 ML VIAL IM NR (10:30)
[2023-04-18] MEDS: IRON SUCROSE 200 MG/10 ML VIAL IV SCH (10:51)
--- NOTE | 2023-04-18 11:02 | Occupational Ther Daily Note ---
OT Current Status-Daily Note Subjective Pt seen in room, up in recliner, agreeable to OT. No pain reported. Appearance Alert, cooperative. Son present for part of tx. Pt oriented to name, , date and location. ADL-Treatment Therapy Code Descriptions/Definitions Functional [place] Measure: 0=Not Assessed/NA 4=Minimal Assistance 1=Total Assistance 5=Supervision or Setup 2=Maximal Assistance 6=Modified [place] 3=Moderate Assistance 7=Complete IndependenceSCALE: Activities may be completed with or without assistive devices. 2-Xpwubevwuv-wvvvgyh completes the activity by him/herself with no assistance from a helper. 5-Set-up or Clean-up Assistance-helper sets up or cleans up; patient completes activity. [place] assists only prior to or following the activity. 4-Supervision or Touching Assistance-helper provides verbal cues and/or stefanie mor/steadying and/or contact guard assistance as patient completes activity. Assistance may be provided throughout the activity or intermittently. 3-Partial/Moderate Assistance-helper does LESS THAN HALF the effort. [place] lifts, holds or supports trunk or limbs, but provides less than half the effort. 2-Substantial/Maximal Assistance-helper does MORE THAN HALF the effort. [place] lifts or holds trunk or limbs and provides more than half the effort. 3-Ptnqxvtzc-azhcjf does ALL the effort. Patient does none of the effort to complete the activity. Or, the assistance of 2 or more helpers is required for the patient to complete the activity. If activity was not attempted, code reason: 7-Patient Refused. 9-Not Applicable-not attempted and the patient did not perform the activity before the current illness, exacerbation or injury. 10-Not Attempted due to Environmental Limitations-(lack of equipment, weather restraints, etc.). 88-Not Attempted due to Medical Conditions or Safety Concerns. Other Treatment Pt with significant edema L UE which she reported was lymphedema and she has had it for 15 years. Pt said that she has done massage on L hand at home in the past and has gloves but she doesn't wear them. Pt had difficulty reaching arms overhead, even when hands together, and grimaces, although she did not report any pain. Pt was not able to do more than two repetitions of bilat fisting without cues. Unable to track repetitions of exercise. Unable to make a complete fist L hand but edema was mobile as shown by increased visibility of MCPs. Unable to do more than two or three reps active L wrist flex and ext and needed physical assist to do correctly. Could do three reps L elbow flex before cues needed. Son reported that her edema is worse than usual. Pt encouraged with make fist throughout the day to help with edema. Pt left up in recliner, all needs met. Education OT Patient Education: Exercise program, Instructions to caregiver, Purpose of tx/functional activities Teaching Recipient: Patient, Family Teaching Methods: Demonstration, Discussion Response to Teaching: Verbalize Understanding, Return Demonstration, Reinforcement Needed OT Bss Solution Architect Goals Bss Solution Architect Goals Oral Hygiene (QC): 5 Toileting Hygiene (QC): 5 Shower/Bathe Self (QC): 5 Upper Body Dressing (QC): 5 Lower Body Dressing (QC): 5 On/Off Footwear (QC): 5 1=Demonstrate adherence to instructed precautions during ADL tasks. 2=Patient will verbalize/demonstrate understanding of assistive devices/modifications for ADL. 3=Patient will improve strength/tolerance for activity to enable patient to perform ADL's. OT Education/Plan Discharge Recommendations Plan/Recommendations: Continue POC Treatment Plan/Plan of Care Patient would benefit from OT for education, treatment and training to promote independence in ADL's, mobility, safety and/or upper extremity function for ADL's. Plan of Care: ADL Retraining, Cognitive Retraining, Concurrent Therapy, Functional Mobility, Group Exercise/Act as Ind, UE Funct Exercise/Act, UE Neuromus Re-Ed/Coord Treatment Duration: Apr 18, 2023 Frequency: 3 times per week (3-5 times per week) Estimated Hrs Per Day: .25 hour per day Agreement: Yes Rehab Potential: Fair Time Start Time: 09:56 Stop Time: 10:11 DATE: Apr 18, 2023 Total Time Billed (hr/min): 15 Billed Treatment Time visit, 15 minutes exercise RAY FLEMING OT Apr 18, 2023 11:02
--- NOTE | 2023-04-18 11:33 | Oncology Consultation ---
Visit Information Visit Information Date of Admission Apr 13, 2023 at 18:14 Attending Physician Deleted Admitting Physician Admitting Physician: Ingris Lewis DO Attending Physician: Ingris Lewis DO Chief Complaint Severe leukocytosis and anemia, concerning of possible of acute leukemia Interval History Ms. Martinez is an 82 year white female who was initially admitted to ICU for fall, severe diarrhea, UTI and electrolytes abnormalities. Her Hb was normal on 04/13/2023 and now her WBC 34k, Hb 8.9, normal Plt. Blood and urine culture showed Strep. Agalacteace. We are called to make sure that pt is not in acute leukemia due to rising WBC despite aggressively treating her infection and she is moved out from ICU to regular floor. Hemodynamic stable. I consulted the patient on: 04/18/23 11:26 Time Seen by Provider: 11:00 Review of Systems Constitutional: see HPI Health Status Allergies Coded Allergies: codeine (Verified Allergy, Unknown, 04/23/16) Home Medications Aspirin (Aspirin EC) 81 Mg Tablet.dr, 81 MG PO DAILY, (Reported) Levothyroxine Sodium (Levothyroxine Sodium) 88 Mcg Tablet, 88 MCG PO DAILY, (Reported) Lisinopril (Lisinopril) 40 Mg Tablet, 40 MG PO DAILY, (Reported) Omeprazole (Omeprazole) 20 Mg Capsule.dr, 20 MG PO HS, (Reported) [id number] Hx Patient Social History Marrital Status: single Employed/Student: retired Smoking Status: Never a Smoker Alcohol Use?: No Immunizations Up To Date Date of Pneumonia Vaccine: May 29, 2014 Family Medical History Significant Family History: No Pertinent Family Hx Physical Exam Vital Signs Vital Signs - First Documented 04/13/23 04/13/23 04/14/23 15:34 18:45 07:20 Temp 37.9 Pulse 80 Resp 18 B/P (MAP) 126/43 (70) Pulse Ox 98 O2 Delivery Room Air O2 Flow Rate 0.00 FiO2 21 Capillary Refill : Less Than 3 Seconds Height, Weight, BMI Height: 5'4.00" Weight: 215lbs. 0.0oz. [id number]; 38.35 BMI Method: General Appearance: No Apparent Distress Neck: Non Tender Respiratory: No Accessory Muscle Use, No Respiratory Distress Cardiovascular: Regular Rate, Rhythm Gastrointestinal: Non Tender, Soft Extremity: Swelling, Other (left upper extremity lymph edema from previous breast cancer surgery) Neurologic/Psychiatric: Alert, Oriented x3 Data Review Labs Laboratory Tests 04/18/23 04:07 Laboratory Tests 04/15/23 16:20: Glucometer 111H 04/15/23 20:05: Glucometer 113H 04/16/23 04:57: 04/16/23 04:58: White Blood Count 29.3H, Red Blood Count 3.38L, Hemoglobin 9.2L, Hematocrit 26L, Mean Corpuscular Volume 76L, Red Cell Distribution Width 16.8H, Neutrophils (%) (Auto) 77H, Lymphocytes (%) (Auto) 7L, Neutrophils # (Auto) 22.5H, Monocytes # (Auto) 2.0H, Immature Granulocyte # (Auto) 2.4H, Sodium Level 129L, Carbon Dioxide Level 13L, Blood Urea Nitrogen 30H, Calcium Level 8.1L, Total Bilirubin 1.2H, Total Protein 4.7L, Albumin 1.9L 04/16/23 10:31: Glucometer 115H 04/16/23 15:23: 04/16/23 19:50: 04/17/23 05:00: 04/17/23 05:02: White Blood Count 30.7*H, Red Blood Count 3.36L, Hemoglobin 8.9L, Hematocrit 26L , Mean Corpuscular Volume 77L, Red Cell Distribution Width 16.9H, Lymphocytes (%) (Auto) 6L, Neutrophils # (Auto) 22.7H, Monocytes # (Auto) 2.3H, Immature Granulocyte # (Auto) 3.7H, Sodium Level 129L, Chloride Level 109H, Carbon Dioxide Level 15L, Blood Urea Nitrogen 26H, Calcium Level 7.9L, Total Bilirubin 1.3H, Aspartate Amino Transf (AST/SGOT) 42H, Total Protein 4.9L, Albumin 1.9L 04/17/23 10:12: 04/17/23 15:22: 04/17/23 20:17: Glucometer 125H 04/18/23 01:45: Glucometer 121H 04/18/23 04:07: White Blood Count 34.0*H, Red Blood Count 3.11L, Hemoglobin 8.4L, Hematocrit 24L , Mean Corpuscular Volume 78L, Red Cell Distribution Width 16.8H, Neutrophils (%) (Auto) 76H, Lymphocytes (%) (Auto) 6L, Neutrophils # (Auto) 25.7H, Monocytes # (Auto) 2.0H, Basophils # (Auto) 0.2H, Immature Granulocyte # (Auto) 3.9H, Sodium Level 129L, Chloride Level 109H, Carbon Dioxide Level 14L, Blood Urea Nitrogen 30H, Glucose Level 115H, Calcium Level 7.8L, Aspartate Amino Transf (AST/SGOT) 41H, Total Protein 4.3L, Albumin 1.8L Laboratory Tests 04/18/23 04:07 Impression & Plan Impression & Plan IMP: 1. Acute severe elevated WBC and anemia, most WBC are neutrophils, no circulating blasts, normal Plt. These are NOT supporting acute leukemia. 2. Strep sepsis and UTI on antibiotic treatment, slowly improving, hemodynamic stable and pt is out of ICU 3. Remote h/o breast cancer NOT on active treatment nor follow up. Rec: 1. Agree with your treatment for infection. 2. I anticipate her leukocytosis will resolved in 2-3 weeks after the resolving of infection. I can see her in a month as a f/u for both her leukocytosis and breast cancer. 3. Dr Lewis to decide hospital course and discharge plan. BARBIE BHAGAT MD Apr 18, 2023 11:33
--- NOTE | 2023-04-18 11:35 | Progress Note ---
ALESHA MAYA 04/18/23 1135: Subjective Date Seen by a Provider: Apr 18, 2023 Time Seen by a Provider: 08:50 Subjective/Events-last exam Patient states that she is feeling "bad". She is having left arm pain and left knee pain still. Left arm is swollen. She is having some weakness and did have some breakfast this morning. She is breathing heavy, short of breath. Just had a BM earlier this morning and denied diarrhea, denied blood. Patient still has not been able to ambulate due to her knee pain, but is able to be moved from the bed to the chair. Does cry out in pain when being moved. Alert & oriented x3. Her son was in the room with her. Review of Systems General: Fatigue, Malaise HEENT: No Head Aches, No Visual Changes, No Eye Pain, No Ear Pain, No Dysphasia, No Sinus Congestion, No Post Nasal Drip, No Sore Throat, No Other Pulmonary: No Dyspnea, No Cough, No Pleuritic Chest Pain; Other (SOB) Cardiovascular: No: Chest Pain, Palpitations, Orthopnea, Paroxysmal Noc. Dyspnea, Edema, Lt Headedness, Other Gastrointestinal: No: Nausea, Vomiting, Abdominal Pain, Diarrhea, Constipation, Melena, Hematochezia, Other Genitourinary: No Dysuria, No Frequency, No Incontinence, No Hematuria, No Retention, No Other Musculoskeletal: arm pain, leg pain; No: other, neck pain, shoulder pain, back pain, hand pain, foot pain Neurological: No: Weakness, Numbness, Incoordination, Change in speech, Confusion, Seizures, Other Objective Exam Last Set of Vital Signs Vital Signs Date Time Temp Pulse Resp B/P (MAP) Pulse Ox O2 Delivery O2 Flow Rate FiO2 04/18/23 08:00 97 Room Air 0.00 04/18/23 07:59 36.1 82 20 128/64 (85) 04/17/23 12:22 21 Capillary Refill : Less Than 3 Seconds I&O Intake and Output 04/18/23 00:00 Intake Total 2640 ml Output Total 850 ml Balance 1790 ml Intake Oral 1490 ml IV Total 1150 ml Output Urine Total 850 ml General: Alert, Oriented X3, Cooperative, Mild Distress HEENT: Atraumatic, PERRLA, EOMI, Mucous Memb Moist/[place] Extremities: No Clubbing, No Cyanosis Neuro: Normal Speech Psych/Mental Status: Mental Status NL, Mood NL Results Lab Laboratory Tests 04/17/23 15:22: Glucometer 97 04/17/23 20:17: Glucometer 125H 04/18/23 01:45: Glucometer 121H 04/18/23 04:07: White Blood Count 34.0*H, Red Blood Count 3.11L, Hemoglobin 8.4L, Hematocrit 24L , Mean Corpuscular Volume 78L, Mean Corpuscular Hemoglobin 27, Mean Corpuscular Hemoglobin Concent 35, Red Cell Distribution Width 16.8H, Platelet Count 394, Mean Platelet Volume 10.0, Immature Granulocyte % (Auto) 12, Neutrophils (%) (Auto) 76H, Lymphocytes (%) (Auto) 6L, Monocytes (%) (Auto) 6, Eosinophils (%) (Auto) 1, Basophils (%) (Auto) 0, Neutrophils # (Auto) 25.7H, Lymphocytes # (Auto) 2.0, Monocytes # (Auto) 2.0H, Eosinophils # (Auto) 0.2, Basophils # (Auto) 0.2H, Immature Granulocyte # (Auto) 3.9H, Neutrophils % (Manual) 66, Lymphocytes % (Manual) 8, Prolymphocyte % 1, Monocytes % (Manual) 9, Eosinophils % (Manual) 1, Metamyelocytes % 1, Myelocytes % 3, Promyelocytes % 1, Band Neutrophils 10, Polychromasia SLIGHT, Anisocytosis SLIGHT, Elliptocytes SLIGHT, Sodium Level 129L, Potassium Level 4.9, Chloride Level 109H, Carbon Dioxide Level 14L, Anion Gap 6, Blood Urea Nitrogen 30H, Creatinine 1.06, Estimat Glomerular Filtration Rate 53, BUN/Creatinine Ratio 28, Glucose Level 115H, Calcium Level 7.8L, Corrected Calcium 9.6, Magnesium Level 2.0, Total Bilirubin 0.9, Aspartate Amino Transf (AST/SGOT) 41H, Alanine Aminotransferase (ALT/SGPT) 32, Alkaline Phosphatase 76, Total Protein 4.3L, Albumin 1.8L 04/18/23 11:26: Glucometer 105 Microbiology 04/13/23 MRSA Screen - Final, Complete MRSA not isolated 04/13/23 Blood Culture - Final, Complete Strep agalactiae Group B 04/13/23 Urine Culture - Final, Complete Strep agalactiae Group B See Comments Assessment/Plan Assessment/Plan Assess & Plan/Chief Complaint Assessment: Severe hypovolemia secondary to severe diarrhea Multiple episodes of paroxysmal atrial tachycardia managed by knowledge engineer UTI w/ Strep. agalactiae group B culture Found down at home - possible fall due to knee pain Sepsis secondary to bacteremia and UTI NSTEMI, Type II VT BRIAN Hyponatremia Hypokalemia resolved Hypothyroidism Left knee OA Hx of HTN Emotional problems Profound leukocytosis Anemia Plan: Continue IVF Continue antibiotics & Questran Pain management B12 level & supplement Iron supplement IV Social work consultation Discontinuation of catheter Monitor 4th floor INGRIS RYAN DO 04/19/23 0448: Assessment/Plan Assessment/Plan Assess & Plan/Chief Complaint Spoke to Dr Sanchez who will see her in consultation Needs VCV Supervisory-Addendum Brief Verification & Attestation Participated in pt care: history, MDM, physical Personally performed: exam, history, MDM, supervision of care Care discussed with: Medical Student Procedures: n/a Results interpretation: Verified all documentation Verification and Attestation of Medical Student E/M Service A medical student performed and documented this service in my presence. I reviewed and verified all information documented by the medical student and made modifications to such information, when appropriate. I personally performed the physical exam and medical decision making. Ingris Ryan, Apr 19, 2023,04:48 ALESHA MAYA Apr 18, 2023 11:35 INGRIS RYAN DO Apr 19, 2023 04:48
[2023-04-18 11:51] VITALS: BP 122/52
[2023-04-18] MEDS: cefTRIAXone 1 GM/NS 50 ML IVPB IV SCH ×2 (13:14)
[2023-04-18] MEDS: GENTAMICIN IV SCH ×2 (14:06→21:31)
[2023-04-18] MEDS: NS IV SCH ×2 (14:06→21:31)
[2023-04-18] MEDS: oxyCODONE IMMEDIATE RELEASE 5 MG TABLET PO PRN ×2 (14:07→20:29)
[2023-04-18 15:43] VITALS: BP 121/62
[2023-04-18] MEDS: ENOXAPARIN 40 MG/0.4 ML SYRINGE SC SCH (17:05)
[2023-04-18 19:52] VITALS: BP 149/64
[2023-04-18] MEDS: PANTOPRAZOLE 20 MG TABLET PO SCH (20:27)
[2023-04-18 23:30] VITALS: BP 102/50
[2023-04-19 03:31] VITALS: BP_SYST 115; BP_SYST 91; BP_DIAS 43; BP_DIAS 57
[2023-04-19] MEDS ORDERED: TROUGH ORDER-PHARMACY XX ONE ×2 (05:00→08:15)
[2023-04-19 05:16] LABS: BASOPHILS # (AUTO) 0.2 10^3/uL (0.0-0.1); BASOPHILS % (AUTO) 1 % (0-10); EOSINOPHILS # (AUTO) 0.2 10^3/uL (0.0-0.3); EOSINOPHILS % (AUTO) 1 % (0-10); HEMATOCRIT 24 % (35-52); HEMOGLOBIN 8.2 g/dL (11.5-16.0); LYMPHOCYTES # (AUTO) 2.2 10^3/uL (1.0-4.0); LYMPHOCYTES % (AUTO) 6 % (12-44); MEAN CORPUSCULAR HEMOGLOBIN 27 pg (25-34); MEAN CORPUSCULAR HGB CONC 34 g/dL (32-36); MEAN CORPUSCULAR VOLUME 80 fL (80-99); MEAN PLATELET VOLUME 10.4 fL (9.0-12.2); MONOCYTES # (AUTO) 2.3 10^3/uL (0.0-1.0); MONOCYTES % (AUTO) 6 % (0-12); NEUTROPHILS % (AUTO) 76 % (42-75); PLATELET COUNT 404 10^3/uL (130-400)
[2023-04-19] MEDS: inSUlin ASPART 1 UNIT/0.01 ML (PER UNIT) SC SCH ×4 (05:18→20:22)
[2023-04-19 05:22] LABS: WHITE BLOOD COUNT 37.1 10^3/uL (4.3-11.0)
[2023-04-19 05:44] LABS: ALBUMIN 1.8 GM/DL (3.2-4.5); BILIRUBIN,TOTAL 0.6 MG/DL (0.1-1.0); CALCIUM 7.9 MG/DL (8.5-10.1); CREATININE SERUM 1.31 MG/DL (0.60-1.30); MAGNESIUM 2.2 MG/DL (1.6-2.4); POTASSIUM 5.5 MMOL/L (3.6-5.0); TOTAL PROTEIN 4.3 GM/DL (6.4-8.2)
[2023-04-19] MEDS: LEVOTHYROXINE 88 MCG TABLET PO SCH (06:26)
[2023-04-19] MEDS: CYANOCOBALAMIN 1,000 MCG TABLET PO SCH (06:26)
[2023-04-19] MEDS: NS IV SCH (06:46)
[2023-04-19] MEDS: GENTAMICIN IV SCH (06:46)
--- NOTE | 2023-04-19 08:20 | Diagnostic Imaging Report ---
INDICATION: Respiratory distress COMPARISON: 04/18/2023 FINDINGS: 5 lobe predominantly interstitial pulmonary opacities asymmetric greater right showed a slight improvement particularly in the left lung. Findings favored to reflect a reduction in interstitial edema. Superimposition of pneumonia could not be excluded. Upper limits heart size and venous distention unchanged. No convincing pleural fluid volume or pneumothorax. IMPRESSION: Mild improvements in bilateral interstitial opacities likely mild reduction in edema. No adverse development. Dictated by: Dictated on workstation # [id number]
[2023-04-19 08:26] VITALS: BP 113/63
--- NOTE | 2023-04-19 08:31 | Cardiology Progress Note ---
Subjective Date Seen by Provider: Apr 19, 2023 Time Seen by Provider: 08:30 Subjective/Events-last exam Patient sitting up in bed, complaining of generalized fatigue and malaise Objective-Cardiology Exam Last Set of Vital Signs Vital Signs 04/17/23 04/19/23 12:22 08:26 Temp 36.2 Pulse 92 Resp 22 B/P (MAP) 113/63 (80) Pulse Ox 99 O2 Delivery Nasal Cannula O2 Flow Rate 2.00 FiO2 21 I&O Intake and Output 04/19/23 00:00 Intake Total 1920 ml Output Total 300 ml Balance 1620 ml Intake Oral 920 ml IV Total 1000 ml Output Urine Total 300 ml # Bowel Movements 1 General: Alert, Oriented X3, Cooperative, Mild Distress HEENT: Atraumatic, PERRLA, EOMI, Mucous Memb Moist/[place] Neck: Supple Lungs: Clear to Auscultation, Normal Air Movement Heart: Regular Rate, Normal S1, Normal S2, No Murmurs Extremities: No Clubbing, No Cyanosis Neuro: Normal Speech Psych/Mental Status: Mental Status NL, Mood NL Results Lab Laboratory Tests 04/19/23 05:00 A/P-Cardiology Admission Diagnosis Non-ST elevation myocardial infarction Coronary artery disease Acute renal failure Dehydration Assessment/Plan Non-ST elevation myocardial infarction, type II myocardial infarction Mild elevation in troponin, no acute EKG changes Trending down at this point Most probably secondary to severe hypotension with dehydration and diarrhea 2D echo was done on April 14, 2023 with moderate LVH, ejection fraction 60 to 65%, grade 1 diastolic dysfunction, mild mitral regurgitation, PA pressure 40 to 45 mmHg, aortic valve sclerosis, mild aortic regurgitation Multiple episodes of paroxysmal atrial tachycardia, Maintained on Cardizem CD 240 mg daily Strep agalactiae UTI with Strep agalactiae bacteremia,on IV antibiotics. I am concerned about possibility of endocarditis, will plan for RHEA on Tuesday Acute renal failure, secondary to dehydration, improved with IV fluids. Continue to monitor. Electrolyte imbalance. Managed and followed by primary care physician Diarrhea, dehydration. Improved. Managed and followed by primary care physician Anemia, leukocytosis. Dr. Sanchez consulted. Supervisory-Addendum Brief Supervisory Addendum Participated in pt care: history, MDM, physical Personally performed: exam, history, MDM Care discussed with: JESSICA Results interpretation: Verified all documentation Notes: Patient was seen and evaluated with Corrie, examination performed, management plan was discussed, agree with the current scribed note, I made few changes to the note using Italic font Patient was seen at bedside, having generalized weakness and generalized body ache Still having leukocytosis, Dr. Sanchez was consulted Planning for RHEA in CORRIE Fairchild Apr 19, 2023 08:31 JEANNETTE INMAN MD Apr 19, 2023 08:34
--- NOTE | 2023-04-19 08:57 | Physical Therapy Progress Note ---
Therapy Progress Note Patient is on Hold due to current status. PT will monitor patient status and resume/attempt tomorrow YEYO Lopes PT Apr 19, 2023 08:57
[2023-04-19] MEDS: oxyCODONE IMMEDIATE RELEASE 5 MG TABLET PO PRN ×2 (09:15→20:26)
[2023-04-19] MEDS: DOCUSATE SODIUM 100 MG CAPSULE PO SCH ×2 (09:17→19:53)
[2023-04-19] MEDS: dilTIAZem ER 240 MG CAPSULE PO SCH (09:17)
[2023-04-19] MEDS: SENNOSIDES 8.6 MG (SENOKOT) TAB PO SCH ×2 (09:20→19:54)
[2023-04-19] MEDS: DICLOFENAC 1% GEL 50 GM TUBE TOP SCH ×4 (09:20→20:26)
--- NOTE | 2023-04-19 10:08 | Occ Therapy Progress Note ---
Therapy Progress Note Pt on hold today per nursing request. Will follow. RAY FLEMING OT Apr 19, 2023 10:08
[2023-04-19] MEDS: RT-ALBUTEROL SULF 2.5 MG/3 ML PRE-MIX VIAL INH SCH ×2 (11:16→21:01)
[2023-04-19 11:35] VITALS: BP 166/66
--- NOTE | 2023-04-19 12:23 | Consultation - Surgery ---
FOSTERUMUPAULA 04/19/23 1223: History of Present Illness History of Present Illness Patient Consulted On(luci/time) 04/19/23 12:22 Time Seen by Provider: 12:22 Reason for Visit: Elevated troponin History of Present Illness Patient reports not feeling well. Bilateral upper extremity edema. Patients reports not having eaten breakfast this morning. Patient denies abdominal pain, denies diarrhea. Patient denies pain in the region of the port. Port has been placed in 2004 and has last been flushed in 2017. Patient has had a WBC that is increasing everyday and is hyperkalemic. Pt denied any chest pain or shortness of breath no palpitation. Allergies and Home Medications Allergies Coded Allergies: codeine (Verified Allergy, Unknown, 04/23/16) Patient Home Medication List Aspirin (Aspirin EC) 81 Mg Tablet., 81 MG PO DAILY, (Reported) Entered as Reported by: LESLIE LANCASTER on 04/14/23 1231 Last Action: Held Levothyroxine Sodium (Levothyroxine Sodium) 88 Mcg Tablet, 88 MCG PO DAILY, (Reported) Entered as Reported by: KAREL DEMPSEY on 04/23/16836 Last Action: Continued Lisinopril (Lisinopril) 40 Mg Tablet, 40 MG PO DAILY, (Reported) Entered as Reported by: LESLIE LANCASTER on 04/14/23 123 Last Action: Held Omeprazole (Omeprazole) 20 Mg Capsule.dr, 20 MG PO HS, (Reported) Entered as Reported by: KAREL DEMPSEY on 04/23/16836 Last Action: Continued Discontinued Medications Ascorbate Calcium (Vitamin C) 500 Mg Tablet, 500 MG PO DAILY, (Reported) Discontinued Reason: No Longer Taking Entered as Reported by: KAREL DEMPSEY on 04/23/16836 Last Action: Discontinued Cholecalciferol (Vitamin D3) (Vitamin D3) 1,000 Unit Tablet, 1,000 UNIT PO DAILY, (Reported) Discontinued Reason: No Longer Taking Entered as Reported by: KAREL DEMPSEY on 04/23/16836 Last Action: Discontinued Cyanocobalamin (Vitamin B-12) (Vitamin B12) 2,500 Mcg Tablet, 2,500 MCG PO DAILY, (Reported) Discontinued Reason: No Longer Taking Entered as Reported by: KAREL DEMPSEY on 04/23/16836 Last Action: Discontinued Duloxetine HCl (Cymbalta) 60 Mg Capsule.dr, 60 MG PO HS, (Reported) Discontinued Reason: No Longer Taking Entered as Reported by: KAREL DEMPSEY on 04/23/16836 Last Action: Discontinued Ferrous Sulfate (Iron) 325 Mg Tablet, 325 MG PO DAILY, (Reported) Discontinued Reason: No Longer Taking Entered as Reported by: KAREL DEMPSEY on 04/23/16836 Last Action: Discontinued Multivitamin (Multivitamins) 1 Each Tablet, 1 EACH PO DAILY, (Reported) Discontinued Reason: No Longer Taking Entered as Reported by: KAREL DEMPSEY on 04/23/16836 Last Action: Discontinued Potassium Chloride (Klor-Con M20) 20 Meq Tab.er.prt, 20 MEQ PO BID, (Reported) Discontinued Reason: No Longer Taking Entered as Reported by: KAREL DEMPSEY on 04/23/16836 Last Action: Discontinued Quetiapine Fumarate (Seroquel) 400 Mg Tablet, 400 MG PO HS, (Reported) Discontinued Reason: No Longer Taking Entered as Reported by: KAREL DEMPSEY on 04/23/16836 Last Action: Discontinued Triamterene/Hydrochlorothiazid (Triamterene-Hctz 37.5-25 mg Cp) 1 Each Capsule, 1 EACH PO DAILY, (Reported) Discontinued Reason: No Longer Taking Entered as Reported by: KAREL DEMPSEY on 04/23/16836 Last Action: Discontinued Past Hvlojsx-Xgfpkm-Drbjnp Hx Patient Social History Smoking Status: Never a Smoker Alcohol Use?: No Immunizations Up To Date Date of Pneumonia Vaccine: May 29, 2014 Cardiovascular Cardiac Disorders: High Cholesterol, Hypertension Endocrine Endocrine Disorders: Hypothyroidsim Psychosocial Behavioral Health Disorders: Anxiety, Bipolar, Depression Family Medical History Significant Family History: No Pertinent Family Hx Review of Systems-General Constitutional: No dizziness, No fever EENTM: No double vision, No mouth swelling Respiratory: No hemoptysis, No orthopnea Cardiovascular: No chest pain; edema (Left upper extremity); No syncope Gastrointestinal: No abdominal pain, No jaundice Genitourinary: No decreased output, No dysuria Musculoskeletal: No back pain, No gout Skin: No dryness, No hx of skin cancer Psychiatric/Neurological: Denies Headache, Denies Seizure Physical Exam-General Problems Physical Exam Vital Signs Vital Signs - First Documented 04/13/23 04/13/23 04/14/23 15:34 18:45 07:20 Temp 37.9 Pulse 80 Resp 18 B/P (MAP) 126/43 (70) Pulse Ox 98 O2 Delivery Room Air O2 Flow Rate 0.00 FiO2 21 Capillary Refill : Less Than 3 Seconds Eyes: Bilateral Eye Normal Inspection HEENT: PERRL/EOMI, normal ENT inspection; No scleral icterus (R), No scleral icterus (L) Neck: full range of motion, normal inspection; No limited range of motion, No lymphadenopathy (R), No lymphadenopathy (L) Respiratory: no respiratory distress, no accessory muscle use; No decreased breath sounds, No accessory muscle use Cardiovascular: normal peripheral pulses, regular rate, rhythm; No JVD, No irregularly irregular Gastrointestinal: non tender, no organomegaly; No distended, No guarding Rectal: No black stool, No blood streaked stool Back: no CVA tenderness, no vertebral tenderness; No CVA tenderness (R), No CVA tenderness (L) Extremities: normal range of motion, non-tender; No pelvis stable, No calf tenderness Neurologic/Psychiatric: no motor/sensory deficits, alert, oriented x 3; No abnormal billing services manager II-XII, No abnormal gait Skin: normal color, warm/dry; No damp, No ecchymosis Lymphatic: no adenopathy; No axilla node tender (R), No axilla node tender (L) Data Review Labs Laboratory Tests 04/18/23 15:46: Glucometer 101 04/18/23 21:32: Glucometer 79 04/19/23 05:00: White Blood Count 37.1*H, Red Blood Count 3.05L, Hemoglobin 8.2L, Hematocrit 24L , Mean Corpuscular Volume 80, Mean Corpuscular Hemoglobin 27, Mean Corpuscular Hemoglobin Concent 34, Red Cell Distribution Width 17.9H, Platelet Count 404H, Mean Platelet Volume 10.4, Immature Granulocyte % (Auto) 11, Neutrophils (%) (Auto) 76H, Lymphocytes (%) (Auto) 6L, Monocytes (%) (Auto) 6, Eosinophils (%) (Auto) 1, Basophils (%) (Auto) 1, Neutrophils # (Auto) 28.0H, Lymphocytes # (Auto) 2.2, Monocytes # (Auto) 2.3H, Eosinophils # (Auto) 0.2, Basophils # (Auto) 0.2H, Immature Granulocyte # (Auto) 4.2H, Sodium Level 128L, Potassium Level 5.5H, Chloride Level 109H, Carbon Dioxide Level 13L, Anion Gap 6, Blood Urea Nitrogen 39H, Creatinine 1.31H, Estimat Glomerular Filtration Rate 41, BUN/Creatinine Ratio 30, Glucose Level 100, Calcium Level 7.9L, Corrected Calcium 9.7, Magnesium Level 2.2, Total Bilirubin 0.6, Aspartate Amino Transf (AST/SGOT) 37H, Alanine Aminotransferase (ALT/SGPT) 28, Alkaline Phosphatase 66, Total Protein 4.3L, Albumin 1.8L, Gentamicin Level Trough 3.0*H 04/19/23 05:18: Glucometer 95 04/19/23 08:15: Gentamicin Level Peak 5.1L 04/19/23 11:35: Glucometer 114H Microbiology 04/17/23 Blood Culture - Preliminary, Resulted No growth 04/13/23 MRSA Screen - Final, Complete MRSA not isolated 04/13/23 Urine Culture - Final, Complete Strep agalactiae Group B See Comments Assessment/Plan Assessment/Plan Assessment/Plan UTI Fall- knee pain BRIAN Hyperkalemia Hypothyroidism Left knee OA Paroxysmal atrial tachycardia Hx of HTN Anemia Plan: Port Removal Continue antibiotics & Questran Pain management Iron supplement IV Monitor blood work SANDRO CONLEY DO 04/19/23 1610: History of Present Illness History of Present Illness History of Present Illness Consult for port removal from Dr. Lewis. Patient is an 82 year old female with sepsis bacteremia. Had port placed in 2005 for breast cancer. Last flushes she thinks is in 2017. Patient with increasing wbc. Is on antibiotics going for RHEA tomorrow. Allergies and Home Medications Allergies Coded Allergies: codeine (Verified Allergy, Unknown, 04/23/16) Patient Home Medication List Home Medication List Reviewed: Yes Aspirin (Aspirin EC) 81 Mg Tablet., 81 MG PO DAILY, (Reported) Entered as Reported by: LESLIE LANCASTER on 04/14/23 1231 Last Action: Held Levothyroxine Sodium (Levothyroxine Sodium) 88 Mcg Tablet, 88 MCG PO DAILY, (Reported) Entered as Reported by: KAREL DEMPSEY on 04/23/16836 Last Action: Continued Lisinopril (Lisinopril) 40 Mg Tablet, 40 MG PO DAILY, (Reported) Entered as Reported by: LESLIE LANCASTER on 04/14/23 1231 Last Action: Held Omeprazole (Omeprazole) 20 Mg Capsule.dr, 20 MG PO HS, (Reported) Entered as Reported by: KAREL DEMPSEY on 04/23/16836 Last Action: Continued Discontinued Medications Ascorbate Calcium (Vitamin C) 500 Mg Tablet, 500 MG PO DAILY, (Reported) Discontinued Reason: No Longer Taking Entered as Reported by: KAREL DEMPSEY on 04/23/16836 Last Action: Discontinued Cholecalciferol (Vitamin D3) (Vitamin D3) 1,000 Unit Tablet, 1,000 UNIT PO DAILY, (Reported) Discontinued Reason: No Longer Taking Entered as Reported by: KAREL DEMPSEY on 04/23/16836 Last Action: Discontinued Cyanocobalamin (Vitamin B-12) (Vitamin B12) 2,500 Mcg Tablet, 2,500 MCG PO DAILY, (Reported) Discontinued Reason: No Longer Taking Entered as Reported by: KAREL DEMPSEY on 04/23/16836 Last Action: Discontinued Duloxetine HCl (Cymbalta) 60 Mg Capsule.dr, 60 MG PO HS, (Reported) Discontinued Reason: No Longer Taking Entered as Reported by: KAREL DEMPSEY on 04/23/16836 Last Action: Discontinued Ferrous Sulfate (Iron) 325 Mg Tablet, 325 MG PO DAILY, (Reported) Discontinued Reason: No Longer Taking Entered as Reported by: KAREL DEMPSEY on 04/23/16836 Last Action: Discontinued Multivitamin (Multivitamins) 1 Each Tablet, 1 EACH PO DAILY, (Reported) Discontinued Reason: No Longer Taking Entered as Reported by: KAREL DEMPSEY on 04/23/16836 Last Action: Discontinued Potassium Chloride (Klor-Con M20) 20 Meq Tab.er.prt, 20 MEQ PO BID, (Reported) Discontinued Reason: No Longer Taking Entered as Reported by: KAREL DEMPSEY on 04/23/16836 Last Action: Discontinued Quetiapine Fumarate (Seroquel) 400 Mg Tablet, 400 MG PO HS, (Reported) Discontinued Reason: No Longer Taking Entered as Reported by: KAREL DEMPSEY on 04/23/16836 Last Action: Discontinued Triamterene/Hydrochlorothiazid (Triamterene-Hctz 37.5-25 mg Cp) 1 Each Capsule, 1 EACH PO DAILY, (Reported) Discontinued Reason: No Longer Taking Entered as Reported by: KAREL DEMPSEY on 04/23/16836 Last Action: Discontinued Past Fjfzflx-Uljpap-Kmnqyx Hx Surgeries History of Surgeries: Yes Surgeries: Breast (port) Review of Systems-General Constitutional: No dizziness, No fever EENTM: No double vision, No mouth swelling Respiratory: No hemoptysis, No orthopnea Cardiovascular: chest pain, edema (Left upper extremity) Gastrointestinal: No abdominal pain, No jaundice Genitourinary: No decreased output, No dysuria Musculoskeletal: No back pain, No gout Skin: No dryness, No hx of skin cancer Psychiatric/Neurological: Denies Headache, Denies Seizure All Other Systems Reviewed Negative Unless Noted: Yes (Negative excepted noted.) Physical Exam-General Problems Physical Exam General Appearance: WD/WN, no apparent distress, other (anxious) HEENT: PERRL/EOMI, normal ENT inspection Neck: non-tender, full range of motion, normal inspection Respiratory: chest non-tender, no respiratory distress, no accessory muscle use, other (port right chest) Cardiovascular: regular rate, rhythm, no JVD Gastrointestinal: non tender, no organomegaly Rectal: deferred Back: no CVA tenderness, no vertebral tenderness Extremities: normal range of motion, non-tender Neurologic/Psychiatric: no motor/sensory deficits, alert, oriented x 3 Skin: normal color, warm/dry Lymphatic: no adenopathy Assessment/Plan Assessment/Plan Assessment/Plan sepsis with bacteremia possible infected port nstemi patient with possible infected port, has not been taken care of since about 2017. disscussed risks and benefits of having it removed. discussed with Dr. Saldana as well who is planning RHEA tomorrow. NPO after midnight Consent for port removal Supervisory-Addendum Brief Verification & Attestation Participated in pt care: history, MDM, physical Personally performed: exam, history, MDM, supervision of care Care discussed with: Medical Student Procedures: n/a Results interpretation: Verified all documentation Verification and Attestation of Medical Student E/M Service A medical student performed and documented this service in my presence. I reviewed and verified all information documented by the medical student and made modifications to such information, when appropriate. I personally performed the physical exam and medical decision making. Sandro Conley, Apr 19, 2023,16:11 DON FOSTER Apr 19, 2023 12:23 SANDRO CONLEY DO Apr 19, 2023 16:10
--- NOTE | 2023-04-19 13:04 | Progress Note ---
ALESHA MAYA 04/19/23 1304: Subjective Date Seen by a Provider: Apr 19, 2023 Time Seen by a Provider: 08:45 Subjective/Events-last exam Patient is not doing much better than yesterday. Having a lot of pain in her left knee and is unable to move much when laying/sitting down. Was in mild distress and was having some shortness of breath. Has not been able to ambulate at all since being admitted. Still having pain in her left arm. Did have a BM since last time seen, reported no blood or pain. Has consulted cardiology and will be getting a RHEA at some point. Emotionally, patient is having a hard time with the pain and being in the hospital. Review of Systems General: No Chills, No Night Sweats, No Fatigue, No Malaise, No Appetite, No Other HEENT: No Head Aches, No Visual Changes, No Eye Pain, No Ear Pain, No Dysphasia, No Sinus Congestion, No Post Nasal Drip, No Sore Throat, No Other Pulmonary: No Dyspnea; Cough; No Pleuritic Chest Pain; Other (SOB) Cardiovascular: No: Chest Pain, Palpitations, Orthopnea, Paroxysmal Noc. Dyspnea, Edema, Lt Headedness, Other Gastrointestinal: No: Nausea, Vomiting, Abdominal Pain, Diarrhea, Constipation, Melena, Hematochezia, Other Genitourinary: No Dysuria, No Frequency, No Incontinence, No Hematuria, No Retention, No Other Musculoskeletal: arm pain, leg pain; No: other, neck pain, shoulder pain, back pain, hand pain, foot pain Neurological: No: Weakness, Numbness, Incoordination, Change in speech, Confusion, Seizures, Other Objective Exam Last Set of Vital Signs Vital Signs Date Time Temp Pulse Resp B/P (MAP) Pulse Ox O2 Delivery O2 Flow Rate FiO2 04/19/23 11:35 36.4 87 20 166/66 (99) 97 Nasal Cannula 2.00 04/17/23 12:22 21 Capillary Refill : Less Than 3 Seconds I&O Intake and Output 04/18/23 23:59 Intake Total 1920 ml Output Total 300 ml Balance 1620 ml Intake Oral 920 ml IV Total 1000 ml Output Urine Total 300 ml # Bowel Movements 1 General: Alert, Oriented X3, Cooperative, Mild Distress HEENT: Atraumatic, PERRLA, EOMI Extremities: No Clubbing, No Cyanosis Neuro: Normal Speech Psych/Mental Status: Mental Status NL, Mood NL Results Lab Laboratory Tests 04/18/23 15:46: Glucometer 101 04/18/23 21:32: Glucometer 79 04/19/23 05:00: White Blood Count 37.1*H, Red Blood Count 3.05L, Hemoglobin 8.2L, Hematocrit 24L , Mean Corpuscular Volume 80, Mean Corpuscular Hemoglobin 27, Mean Corpuscular Hemoglobin Concent 34, Red Cell Distribution Width 17.9H, Platelet Count 404H, Mean Platelet Volume 10.4, Immature Granulocyte % (Auto) 11, Neutrophils (%) (Auto) 76H, Lymphocytes (%) (Auto) 6L, Monocytes (%) (Auto) 6, Eosinophils (%) (Auto) 1, Basophils (%) (Auto) 1, Neutrophils # (Auto) 28.0H, Lymphocytes # (Auto) 2.2, Monocytes # (Auto) 2.3H, Eosinophils # (Auto) 0.2, Basophils # (Auto) 0.2H, Immature Granulocyte # (Auto) 4.2H, Sodium Level 128L, Potassium Level 5.5H, Chloride Level 109H, Carbon Dioxide Level 13L, Anion Gap 6, Blood Urea Nitrogen 39H, Creatinine 1.31H, Estimat Glomerular Filtration Rate 41, BUN/Creatinine Ratio 30, Glucose Level 100, Calcium Level 7.9L, Corrected Calcium 9.7, Magnesium Level 2.2, Total Bilirubin 0.6, Aspartate Amino Transf (AST/SGOT) 37H, Alanine Aminotransferase (ALT/SGPT) 28, Alkaline Phosphatase 66, Total Protein 4.3L, Albumin 1.8L, Gentamicin Level Trough 3.0*H 04/19/23 05:18: Glucometer 95 04/19/23 08:15: Gentamicin Level Peak 5.1L 04/19/23 11:35: Glucometer 114H Microbiology 04/17/23 Blood Culture - Preliminary, Resulted No growth 04/13/23 MRSA Screen - Final, Complete MRSA not isolated 04/13/23 Urine Culture - Final, Complete Strep agalactiae Group B See Comments Assessment/Plan Assessment/Plan Assess & Plan/Chief Complaint Assessment: Severe hypovolemia secondary to severe diarrhea Multiple episodes of paroxysmal atrial tachycardia managed by drug abuse program coordinator UTI w/ Strep. agalactiae group B culture Found down at home - possible fall due to knee pain Sepsis secondary to bacteremia and UTI NSTEMI, Type II NV BRIAN Hyponatremia Hypokalemia resolved Left arm lymphedema Hypothyroidism Left knee OA Hx of HTN Emotional problems Profound leukocytosis Anemia Plan: Continue IVF Continue antibiotics & Questran Pain management B12 level & supplement NPO status Iron supplement IV Midline dressing & cap change Surgery consult for port Monitor blood work INGRIS RYAN DO 04/19/231932: Supervisory-Addendum Brief Verification & Attestation Participated in pt care: history, MDM, physical Personally performed: exam, history, MDM, supervision of care Care discussed with: Medical Student Procedures: n/a Results interpretation: Verified all documentation Verification and Attestation of Medical Student E/M Service A medical student performed and documented this service in my presence. I reviewed and verified all information documented by the medical student and made modifications to such information, when appropriate. I personally performed the physical exam and medical decision making. Ingris Ryan Apr 19, 2023,19:33 ALESHA MAYA Apr 19, 2023 13:04 INGRIS RYAN DO Apr 19, 2023 19:33
[2023-04-19] MEDS: cefTRIAXone 1 GM/NS 50 ML IVPB IV SCH ×2 (14:12)
[2023-04-19 15:35] VITALS: BP 158/65
[2023-04-19 16:53] VITALS: BP 156/75
[2023-04-19] MEDS ORDERED: RT-Ipratropium/Albuterol NEB 3 ML VIAL INH ONE (17:00)
--- NOTE | 2023-04-19 17:05 | Tele-ICU Progress Note ---
Subjective Date Seen by a Provider: Apr 19, 2023 Time Seen by a Provider: 17:04 Subjective/Events-last exam (Tele-ICU Physician , Progress Note ) Service provided via interactive audio and video telecommunications E-CARE system to a patient admitted to ICU bed in [facility]. Patient is seen today due to persistent need of ICU care Available chart/ vitals / labs / Images reviewed Video assessment done using teleICU camera, rest of exam as per RN Discussed with RN Events overnight : Afebrile hemodynamically stable Respiratory - I/O = Drips: Pressors- no Hospital course: (04/13) 82yr old female admitted with AMS, BRIAN, NSTEMI, hypokalemia and a fall with left knee pain. 04/14- AAO , intermittent a fib A/P Acute resp failure with hypoxia 04/19 - transferred to ICU , check lytes , EKG - cards follow , visited in room upon transfer Elevated troponin, intermittent a fib - as per cards Leukocytosis WBC 30K for 3 days # bacteremia- Strep agalactiae Group B 04/13 , same bact in urine ( blood cx 04/17 - no grouth so far -patient with possible infected port - plans to remove it tomorrow - RHEA was planned for valvular assessment - as per cards timing - cont abx for now # Diarrhea of undetermined etiology - rule out any C. difficile colitis - NONE inpatient - cx not sent- RESUMED LOOSE STOOL TODAY < BUT WAS GIVEN MIRALAX - will stop laxatives and follow s/p fall - left knee pain pain - images done in ER - no acute fr Anemia -needs to rule out any iron deficiency - no active bleeding , monitor Lines : periph + port = midline , (Central Line Necessity Reviewed) Barber: void ( removed 04/18 Nutrition: Analgesia: Anxiety/ delirium VTE Prophylaxis: lovenox - WAS ON HOLD TODAY Stress Ulcer Prophylaxis: na Plans in collaboration with bedside consultants and IM MDs. Discussed with RN to reach out if any questions or concerns Case and care daily discussed on multidisciplinary rounds ( RN, PharmD, Air Quality Manager , Respiratory Therapy, dairy feed worker ) A total of 32 minutes of critical care time was devoted to this patient today, required to treat and/or prevent further deterioration of critical care condition ( as above ) . I am remotely monitoring this patient from another state. I am unable to do the bedside exam, and history/physical and pertinent information is taken from other notes in the computer and bedside staff. Sepsis Event Evaluation Height, Weight, BMI Height: 5'4.00" Weight: 215lbs. 0.0oz. [id number]; 38.76 BMI Method: Focused Exam Lactate Level 04/19/23 16:45: Lactic Acid Level Laboratory Tests Test 04/19/23 16:45 Exam Exam Patient acknowledged, consented, and participated in this virtual visit which was conducted using real time audio/video Vital Signs Date Time Temp Pulse Resp B/P (MAP) Pulse Ox O2 Delivery O2 Flow Rate FiO2 04/19/23 15:35 36.2 99 16 158/65 (96) 96 Nasal Cannula 2.00 04/19/23 13:10 90 04/19/23 11:35 36.4 87 20 166/66 (99) 97 Nasal Cannula 2.00 04/19/23 08:26 36.2 92 22 113/63 (80) 99 Nasal Cannula 2.00 04/19/23 08:00 97 Room Air 0.00 04/19/23 07:22 88 04/19/23 03:31 36.1 91 18 115/57 (76) 92 Room Air 04/19/23 01:26 77 04/18/23 23:30 36.2 86 18 102/50 (67) 93 Nasal Cannula 2.00 04/18/23 21:00 92 Room Air 04/18/23 20:00 97 Room Air 0.00 04/18/23 19:52 37.0 97 17 149/64 (92) 95 Room Air 04/18/23 19:00 88 I & O 04/19/23 07:00 Intake Total 995 ml Output Total 325 ml Balance 670 ml Height & Weight Height: 5'4.00" Weight: 215lbs. 0.0oz. [id number]; 38.76 BMI Method: General Appearance: No Apparent Distress HEENT: PERRL/EOMI, Normal ENT Inspection, Pharynx Normal Neck: Non Tender Respiratory: No Accessory Muscle Use, No Respiratory Distress Cardiovascular: Regular Rate, Rhythm Capillary Refill: Less Than 3 Seconds Gastrointestinal: non tender, no organomegaly Extremity: Swelling, Other (left upper extremity lymph edema from previous breast cancer surgery) Neurologic/Psychiatric: Alert, Oriented x3 Skin: Normal Color, Warm/Dry Lymphatic: No Adenopathy Results Lab Laboratory Tests 04/18/23 04:07 04/19/23 05:00 Assessment/Plan Assessment/Plan 1 ZONIA FOOTE MD Apr 19, 2023 17:05
--- NOTE | 2023-04-19 17:18 | Diagnostic Imaging Report ---
INDICATION: Respiratory failure. Frontal chest obtained at 5:00 p.m. and compared to same day 5:12 a.m. FINDINGS: There is cardiomegaly. There is worsening central vascular congestion and perihilar edema compared to the prior study. There is no pneumothorax or gross pleural fluid. Central venous catheter is unchanged. IMPRESSION: Worsening central vascular congestion and edema compared to the prior study with underlying cardiomegaly. No pleural fluid or pneumothorax. Dictated by: Dictated on workstation # [id number]
[2023-04-19] MEDS: NS IV 1000 ML 1,000 ML IV SCH (17:36)
[2023-04-19 17:39] LABS: POTASSIUM 5.6 MMOL/L (3.6-5.0)
[2023-04-19 17:40] LABS: CALCIUM 8.5 MG/DL (8.5-10.1)
[2023-04-19 17:44] LABS: CREATININE SERUM 1.67 MG/DL (0.60-1.30)
[2023-04-19 17:46] LABS: MAGNESIUM 2.5 MG/DL (1.6-2.4)
--- NOTE | 2023-04-19 19:36 | Tele-ICU Progress Note ---
Subjective Date Seen by a Provider: Apr 19, 2023 Time Seen by a Provider: 17:10 Subjective/Events-last exam Called to bedside from rapid response team She was incontinent of a lot of diarrhea and then became short of breath and became hypotensive with V. tach on monitor. Transferred to ICU Updated cardiology Patient appears to be cisse but stable Son at bedside we did arrange DPOA since patient was lucid and agrees for him to make decisions if she cannot IV fluids initiated Supportive care we will continue Review of Systems General: Fatigue, Malaise Pulmonary: Dyspnea Gastrointestinal: Diarrhea Sepsis Event Evaluation Height, Weight, BMI Height: 5'4.00" Weight: 215lbs. 0.0oz. [id number]; 38.76 BMI Method: Focused Exam Lactate Level 04/19/23 16:45: Lactic Acid Level 3.22*H Lactic Acid Level Laboratory Tests Test 04/19/23 16:45 Lactic Acid Level 3.22 MMOL/L (0.50-2.00) *H Exam Exam Patient acknowledged, consented, and participated in this virtual visit which was conducted using real time audio/video Vital Signs Date Time Temp Pulse Resp B/P (MAP) Pulse Ox O2 Delivery O2 Flow Rate FiO2 04/19/23 18:00 91 25 140/48 (78) 100 High Flow N/C 10.00 04/19/23 17:45 93 25 136/42 (73) 98 High Flow N/C 10.00 04/19/23 17:30 93 15 131/47 (75) 100 High Flow N/C 10.00 04/19/23 17:15 85 29 149/46 (80) 99 High Flow N/C 10.00 04/19/23 17:00 95 36 147/92 (110) 97 High Flow N/C 10.00 04/19/23 16:53 103 40 83 04/19/23 16:50 94 10.00 04/19/23 16:45 101 37 157/35 (75) 97 High Flow N/C 10.00 04/19/23 16:30 101 43 173/57 (95) 96 High Flow N/C 10.00 04/19/23 16:25 97 04/19/23 15:35 36.2 99 16 158/65 (96) 96 Nasal Cannula 2.00 04/19/23 13:10 90 04/19/23 11:35 36.4 87 20 166/66 (99) 97 Nasal Cannula 2.00 04/19/23 08:26 36.2 92 22 113/63 (80) 99 Nasal Cannula 2.00 04/19/23 08:00 97 Room Air 0.00 04/19/23 07:22 88 04/19/23 03:31 36.1 91 18 115/57 (76) 92 Room Air 04/19/23 01:26 77 04/18/23 23:30 36.2 86 18 102/50 (67) 93 Nasal Cannula 2.00 04/18/23 21:00 92 Room Air 04/18/23 20:00 97 Room Air 0.00 04/18/23 19:52 37.0 97 17 149/64 (92) 95 Room Air I & O 04/19/23 06:59 Intake Total 995 ml Output Total 325 ml Balance 670 ml Height & Weight Height: 5'4.00" Weight: 215lbs. 0.0oz. 97.119401wg; 38.76 BMI Method: General Appearance: No Apparent Distress, Chronically ill, Other (Cisse and a rizvi) HEENT: PERRL/EOMI, Normal ENT Inspection, Pharynx Normal Neck: Non Tender Respiratory: No Accessory Muscle Use, No Respiratory Distress, Decreased Breath Sounds Cardiovascular: Regular Rate, Rhythm Capillary Refill: Less Than 3 Seconds Gastrointestinal: non tender, no organomegaly Extremity: Swelling, Other (left upper extremity lymph edema from previous breast cancer surgery) Neurologic/Psychiatric: Alert, Oriented x3 Skin: Normal Color, Warm/Dry Lymphatic: No Adenopathy Results Lab Laboratory Tests 04/18/23 04:07 04/19/23 05:00 04/19/23 17:23 Assessment/Plan Assessment/Plan Assessment: Hypotensive hypovolemic episode with fecal incontinence of diarrhea on fourth floor transferred to ICU Episode of V. tach Shortness of breath Plan: IV fluid ICU monitoring Monitor for recurrence of V. tach Remove right sided port in case that is the source of bacteremia RHEA tomorrow Diagnosis/Problems Diagnosis/Problems (1) AMS (altered mental status) Status: Acute Qualifiers: Qualified Codes: R41.0 - Disorientation, unspecified (2) BRIAN (acute kidney injury) Status: Resolved Resolution Date/Time: 04/16/23 @ 16:44 (3) NSTEMI (non-ST elevated myocardial infarction) Status: Acute (4) Fall Status: Acute Qualifiers: Qualified Codes: W19.XXXA - Unspecified fall, initial encounter (5) Hypokalemia Status: Acute (6) Dehydration WALI RYAN DO Apr 19, 2023 19:36
[2023-04-19] MEDS: PANTOPRAZOLE 20 MG TABLET PO SCH (20:24)
[2023-04-20] MEDS ORDERED: NS IV 500 ML 500 ML IV PRN ×2 (03:00→09:45)
[2023-04-20 05:19] LABS: POTASSIUM 5.9 MMOL/L (3.6-5.0)
[2023-04-20 05:20] LABS: CALCIUM 7.9 MG/DL (8.5-10.1)
[2023-04-20 05:22] LABS: TOTAL PROTEIN 4.7 GM/DL (6.4-8.2)
[2023-04-20 05:23] LABS: BILIRUBIN,TOTAL 0.6 MG/DL (0.1-1.0)
[2023-04-20 05:26] LABS: CREATININE SERUM 1.87 MG/DL (0.60-1.30)
[2023-04-20 05:30] LABS: MAGNESIUM 2.4 MG/DL (1.6-2.4)
[2023-04-20] MEDS: inSUlin ASPART 1 UNIT/0.01 ML (PER UNIT) SC SCH ×2 (05:36→13:12)
[2023-04-20] MEDS ORDERED: POTASSIUM CL 10MEQ/50ML IVPB 50 ML IV SCH (06:00)
[2023-04-20] MEDS ORDERED: MAGNESIUM 1 GM/100 ML IVPB 100 ML IV SCH (06:00)
[2023-04-20] MEDS ORDERED: POTASSIUM CHLORIDE 20 MEQ TABLET PO SCH (06:00)
[2023-04-20 06:08] LABS: BASOPHILS # (AUTO) 0.2 10^3/uL (0.0-0.1); BASOPHILS % (AUTO) 1 % (0-10); EOSINOPHILS # (AUTO) 0.1 10^3/uL (0.0-0.3); EOSINOPHILS % (AUTO) 0 % (0-10); HEMATOCRIT 24 % (35-52); HEMOGLOBIN 8.2 g/dL (11.5-16.0); LYMPHOCYTES # (AUTO) 2.1 10^3/uL (1.0-4.0); LYMPHOCYTES % (AUTO) 5 % (12-44); MEAN CORPUSCULAR HEMOGLOBIN 28 pg (25-34); MEAN CORPUSCULAR HGB CONC 34 g/dL (32-36); MEAN CORPUSCULAR VOLUME 82 fL (80-99); MEAN PLATELET VOLUME 10.8 fL (9.0-12.2); MONOCYTES # (AUTO) 1.9 10^3/uL (0.0-1.0); MONOCYTES % (AUTO) 5 % (0-12); NEUTROPHILS # (AUTO) 32.3 10^3/uL (1.8-7.8); NEUTROPHILS % (AUTO) 79 % (42-75); PLATELET COUNT 443 10^3/uL (130-400)
[2023-04-20 06:42] LABS: ANISOCYTOSIS SLIGHT; BAND NEUTROPHILS 6 %; EOSINOPHILS % (MANUAL) 1 %; HYPOCHROMASIA SLIGHT; LYMPHOCYTES % (MANUAL) 6 %; MICROCYTOSIS SLIGHT; MONOCYTES % (MANUAL) 4 %; NEUTROPHILS % (MANUAL) 83 %; POIKILOCYTOSIS SLIGHT; POLYCHROMASIA SLIGHT; TOXIC GRANULATION/VACUOLAZATIO 1+
[2023-04-20 06:43] LABS: ELLIPT/OVALOCYTES SLIGHT
[2023-04-20] MEDS: NS IV 1000 ML 1,000 ML IV SCH ×3 (06:50→14:30)
[2023-04-20] MEDS: CYANOCOBALAMIN 1,000 MCG TABLET PO SCH (06:52)
[2023-04-20] MEDS: LEVOTHYROXINE 88 MCG TABLET PO SCH (06:52)
[2023-04-20] MEDS ORDERED: DEXTROSE 50% 50 ML (IMS) SYR IV ONE (07:00)
[2023-04-20] MEDS ORDERED: CALCIUM GLUCONATE 1GM IVPB 100 ML IV ONE (07:00)
[2023-04-20] MEDS ORDERED: inSUlin (REGULAR) HUMAN 1 UNIT/0.01 ML (CHARGE PER UNIT) IV ONE (07:00)
[2023-04-20] MEDS ORDERED: NS IV 1000 ML 1,000 ML IV SCH (07:00)
[2023-04-20] MEDS ORDERED: SODIUM BICARB 8.4% 50 MEQ/50 ML (ABBOTT) SYR IV ONE (07:00)
[2023-04-20] MEDS: RT-ALBUTEROL SULF 2.5 MG/3 ML PRE-MIX VIAL INH SCH (07:27)
--- NOTE | 2023-04-20 07:33 | Progress Note - Surgery ---
NAGA NIEVES 04/20/23 0733: Subjective Date Seen by a Provider: Apr 20, 2023 Time Seen by a Provider: 07:00 Subjective/Events-last exam Lula had an episode of SVT yesterday around 4pm and was sent to ICU. Her pulse has been fluctuating between 76 - 106 bpm overnight. She had what the nurse percieved as a panic attack last night at 2:30pm when her BP mayo t up to 192/55. Per nurse she is starting to wheeze and O2 has come down slightly from 10L NC to 8L NC. Labs have increased overnight - WBC 41, BUN 48. Her urine output is only 0.07 due to only voiding 66ml of urine overnight. She is scheduled to get port that may be source of infection removed today. Family vi sited yesterday Pt denies CP, SOB, N/V/ dysuria Review of Systems General: No Chills, No Night Sweats; Fatigue HEENT: No Head Aches Pulmonary: No Dyspnea, No Cough Cardiovascular: No: Chest Pain, Orthopnea Gastrointestinal: No: Nausea, Vomiting Genitourinary: No Dysuria, No Frequency Musculoskeletal: No: neck pain, shoulder pain Neurological: Confusion; No: Numbness, Incoordination (moreso than yesterday) Focused Exam Lactate Level 04/19/23 16:45: Lactic Acid Level 3.22*H 04/19/23 19:31: Lactic Acid Level 1.93 Objective Exam Vital Signs Date Time Temp Pulse Resp B/P (MAP) Pulse Ox O2 Delivery O2 Flow Rate FiO2 04/20/23 06:00 87 21 109/38 (61) 100 High Flow N/C 8.00 04/20/23 05:00 90 22 140/52 (81) 98 High Flow N/C 8.00 04/20/23 04:00 81 25 117/48 (71) 97 High Flow N/C 8.00 04/20/23 04:00 98 High Flow N/C 8.00 04/20/23 04:00 35.9 04/20/23 03:00 82 30 111/32 (58) 99 High Flow N/C 8.00 04/20/23 02:35 106 20 192/55 (100) 93 High Flow N/C 8.00 04/20/23 02:00 76 25 95/45 (62) 100 High Flow N/C 8.00 04/20/23 01:00 84 17 127/49 (75) 99 High Flow N/C 8.00 04/20/23 01:00 84 04/20/23 00:17 96 High Flow N/C 8.00 04/20/23 00:00 78 18 103/37 (59) 100 High Flow N/C 8.00 04/20/23 00:00 36.0 04/19/23 23:00 82 19 108/44 (65) 100 High Flow N/C 8.00 04/19/23 22:00 86 18 103/37 (59) 97 High Flow N/C 8.00 04/19/23 21:10 36.3 High Flow N/C 8.00 04/19/23 21:02 96 High Flow N/C 8.00 04/19/23 21:00 89 19 144/40 (74) 98 High Flow N/C 10.00 04/19/23 20:00 89 23 156/50 (85) 95 High Flow N/C 10.00 04/19/23 20:00 99 High Flow N/C 10.00 04/19/23 19:00 95 04/19/23 19:00 95 26 146/43 (77) 98 High Flow N/C 10.00 04/19/23 18:00 91 25 140/48 (78) 100 High Flow N/C 10.00 04/19/23 17:45 93 25 136/42 (73) 98 High Flow N/C 10.00 04/19/23 17:30 93 15 131/47 (75) 100 High Flow N/C 10.00 04/19/23 17:15 85 29 149/46 (80) 99 High Flow N/C 10.00 04/19/23 17:00 95 36 147/92 (110) 97 High Flow N/C 10.00 04/19/23 16:53 103 40 83 04/19/23 16:50 94 10.00 04/19/23 16:45 101 37 157/35 (75) 97 High Flow N/C 10.00 04/19/23 16:30 101 43 173/57 (95) 96 High Flow N/C 10.00 04/19/23 16:25 97 04/19/23 15:35 36.2 99 16 158/65 (96) 96 Nasal Cannula 2.00 04/19/23 13:10 90 04/19/23 11:35 36.4 87 20 166/66 (99) 97 Nasal Cannula 2.00 04/19/23 08:26 36.2 92 22 113/63 (80) 99 Nasal Cannula 2.00 04/19/23 08:00 97 Room Air 0.00 I & O 04/20/23 07:00 Intake Total 230 ml Output Total 635 ml Balance -405 ml Capillary Refill : Less Than 3 Seconds General Appearance: No Apparent Distress, Chronically ill, Mild Distress, Other (Cisse and ashen) HEENT: PERRL/EOMI, Normal ENT Inspection, Pharynx Normal Neck: Non Tender, Supple Respiratory: No Respiratory Distress, Accessory Muscle Use (slight), Wheezing (per nurse) Cardiovascular: No No JVD; Normal Peripheral Pulses, Other (abnormal rate 76- 106bpm) Peripheral Pulses: 2+ Radial Pulses (R), 2+ Radial Pulses (L) Gastrointestinal: non tender, no organomegaly Extremity: Swelling, Other (left upper extremity lymph edema from previous breast cancer surgery) Neurologic/Psychiatric: Alert, Oriented x3 Skin: Normal Color, Warm/Dry Lymphatic: No Adenopathy Results Lab Laboratory Tests 04/19/23 08:15: Gentamicin Level Peak 5.1L 04/19/23 11:35: Glucometer 114H 04/19/23 15:41: Glucometer 103 04/19/23 16:45: Lactic Acid Level 3.22*H 04/19/23 17:23: Sodium Level 130L, Potassium Level 5.6H, Chloride Level 108H, Carbon Dioxide Level 13L, Anion Gap 9, Blood Urea Nitrogen 41H, Creatinine 1.67H, Estimat Glomerular Filtration Rate 31, BUN/Creatinine Ratio 25, Glucose Level 130H, Calcium Level 8.5, Magnesium Level 2.5H, Troponin I 2.856*H, B-Type Natriuretic Peptide 1689.0H 04/19/23 19:31: Lactic Acid Level 1.93 04/19/23 20:13: Glucometer 116H 04/20/23 04:34: Sodium Level 129L, Potassium Level 5.9H, Chloride Level 108H, Carbon Dioxide Level 10L, Anion Gap 11, Blood Urea Nitrogen 48H, Creatinine 1.87H, Estimat Glomerular Filtration Rate 27, BUN/Creatinine Ratio 26, Glucose Level 105, Calcium Level 7.9L, Magnesium Level 2.4, Corrected Calcium 9.5, Total Bilirubin 0.6, Aspartate Amino Transf (AST/SGOT) 84H, Alanine Aminotransferase (ALT/SGPT) 54, Alkaline Phosphatase 66, Total Protein 4.7L, Albumin 2.0L 04/20/23 05:39: White Blood Count 41.0*H, Red Blood Count 2.98L, Hemoglobin 8.2L, Hematocrit 24L , Mean Corpuscular Volume 82, Mean Corpuscular Hemoglobin 28, Mean Corpuscular Hemoglobin Concent 34, Red Cell Distribution Width 18.3H, Platelet Count 443H, Mean Platelet Volume 10.8, Immature Granulocyte % (Auto) 11, Neutrophils (%) (A uto) 79H, Lymphocytes (%) (Auto) 5L, Monocytes (%) (Auto) 5, Eosinophils (%) (Auto) 0, Basophils (%) (Auto) 1, Neutrophils # (Auto) 32.3H, Lymphocytes # (Auto) 2.1, Monocytes # (Auto) 1.9H, Eosinophils # (Auto) 0.1, Basophils # (Auto) 0.2H, Immature Granulocyte # (Auto) 4.3H, Neutrophils % (Manual) 83, Lymphocytes % (Manual) 6, Monocytes % (Manual) 4, Eosinophils % (Manual) 1, Band Neutrophils 6, Toxic Granulation 1+, Polychromasia SLIGHT, Hypochromasia SLIGHT, Poikilocytosis SLIGHT, Anisocytosis SLIGHT, Microcytosis SLIGHT, Elliptocytes SLIGHT Microbiology 04/17/23 Blood Culture - Preliminary, Resulted No growth 04/13/23 MRSA Screen - Final, Complete MRSA not isolated 04/13/23 Urine Culture - Final, Complete Strep agalactiae Group B See Comments Assessment/Plan Assessment/Plan Assessment/Plan leukocytosis Anxiety episode of SVT UTI Fall- knee pain BRIAN Hyperkalemia Hypothyroidism Left knee OA Paroxysmal atrial tachycardia Hx of HTN Anemia Plan: Obtain consent for Port Removal IV abx Pain management Iron supplement IV Monitor blood work IV fluids Postpone RHEA until pt is more stable SANDRO FLORES DO 04/20/23 6588: Subjective Subjective/Events-last exam Patient transerred to ICU. Some difficulty breathing. Increasing wbc. Son at beside. NPO. Objective Exam General Appearance: Chronically ill, Mild Distress, Other (Cisse and ashen) HEENT: PERRL/EOMI, Normal ENT Inspection Neck: Non Tender, Supple Respiratory: Chest Non Tender, Accessory Muscle Use (slight), Wheezing (audible) Cardiovascular: Regular Rate, Rhythm, No JVD Gastrointestinal: non tender, no organomegaly Extremity: Non Tender Neurologic/Psychiatric: Alert, Oriented x3 Skin: No Normal Color; Warm/Dry Lymphatic: No Adenopathy Assessment/Plan Assessment/Plan Assessment/Plan sepsis with bacteremia possible infected port nstemi patient with possible infected port, has not been taken care of since about 2017. discussed risks and benefits of having it removed also with son NPO Today for port removal Abx Supervisory-Addendum Brief Verification & Attestation Participated in pt care: history, MDM, physical Personally performed: exam, history, MDM, supervision of care Care discussed with: Medical Student Procedures: n/a Results interpretation: Verified all documentation Verification and Attestation of Medical Student E/M Service A medical student performed and documented this service in my presence. I reviewed and verified all information documented by the medical student and made modifications to such information, when appropriate. I personally performed the physical exam and medical decision making. Sandro Flores, Apr 20, 2023,10:37 NAGA NIEVES Apr 20, 2023 07:33 SANDRO FLORES DO Apr 20, 2023 13:38
[2023-04-20] MEDS ORDERED: FUROSEMIDE INJECTION 40 MG/4 ML VIAL IVP ONE (08:30)
[2023-04-20] MEDS: IRON SUCROSE 200 MG/10 ML VIAL IV SCH (08:40)
[2023-04-20] MEDS: DOCUSATE SODIUM 100 MG CAPSULE PO SCH (08:41)
[2023-04-20] MEDS: SENNOSIDES 8.6 MG (SENOKOT) TAB PO SCH (08:41)
[2023-04-20] MEDS: DICLOFENAC 1% GEL 50 GM TUBE TOP SCH ×2 (08:41→13:14)
[2023-04-20] MEDS: dilTIAZem ER 240 MG CAPSULE PO SCH (08:46)
[2023-04-20] MEDS ORDERED: GENTAMICIN IV SCH (09:00)
[2023-04-20] MEDS ORDERED: NS IV SCH (09:00)
--- NOTE | 2023-04-20 09:47 | Diagnostic Imaging Report ---
INDICATION: Hypoxia TECHNIQUE: Single view chest 2:40 AM CORRELATION STUDY: 04/19/2023 FINDINGS: Defibrillator pads and overlying monitor leads obscure detail. Given this, heart size, mediastinum and vasculature do remain prominent but overall appears to be decreased edema from prior. Bilateral perihilar and basilar opacities, likely residual edema also generally improved. Right-sided central line tip over the SVC, stable. Surgical clips over the left axilla. IMPRESSION: 1. While there are continued findings of edema, there does appear to be overall generalized improvement from previous day's study. Dictated by: Dictated on workstation # [id number]
[2023-04-20 10:20] LABS: POTASSIUM 5.6 MMOL/L (3.6-5.0)
[2023-04-20 10:21] LABS: CALCIUM 8.2 MG/DL (8.5-10.1)
[2023-04-20 10:26] LABS: CREATININE SERUM 1.86 MG/DL (0.60-1.30)
[2023-04-20 10:35] VITALS: BP 191/56
[2023-04-20] MEDS ORDERED: LIDOCAINE 1% w/EPI 1:100,000 20 ML VIAL ONE (11:18)
[2023-04-20 12:10] VITALS: BP 145/77
--- NOTE | 2023-04-20 12:14 | Tele-ICU Consult ---
History of Present Illness History of Present Illness Date Seen by Provider: Apr 20, 2023 Time Seen by Provider: 09:23 Date of Admission (Tele-ICU Physician , Progress Note ) Service provided via interactive audio and video telecommunications E-CARE system to a patient admitted to ICU bed in [facility]. Patient is seen today due to persistent need of ICU care Available chart/ vitals / labs / Images reviewed Video assessment done using teleICU camera, rest of exam as per RN Discussed with RN Events overnight : Pressors- no Hospital course: (04/13) 82yr old female admitted with AMS, BRIAN, NSTEMI, hypokalemia and a fall with left knee pain. 04/14- AAO , intermittent a fib A/P Acute resp failure with hypoxia 04/19 - on 10 l - edema and WOB - try BIPAP today Elevated troponin, intermittent a fib - as per cards Leukocytosis WBC 30K for 3 days # bacteremia- Strep agalactiae Group B 04/13 , same bact in urine ( blood cx 04/17 - no grouth so far - ? endocarditis -patient with possible infected port - plans to remove - timeing as per Sx - RHEA was planned for valvular assessment - as per cards timing - cont abx for now # Diarrhea of undetermined etiology - rule out any C. difficile colitis - NONE inpatient - cx not sent- RESUMED LOOSE STOOL TODAY < BUT WAS GIVEN MIRALAX - will stop laxatives and follow BRIAN - monitor , worsening despite additional IVF boluses given , making urine - diuretics trail s/p fall - left knee pain pain - images done in ER - no acute fr Anemia -needs to rule out any iron deficiency - no active bleeding , monitor Lines : periph + port = midline , (Central Line Necessity Reviewed) Barber: void ( removed 04/18 Nutrition: Analgesia: Anxiety/ delirium VTE Prophylaxis: lovenox - WAS ON HOLD TODAY Stress Ulcer Prophylaxis: na Plans in collaboration with bedside consultants and IM MDs. Discussed with RN to reach out if any questions or concerns Case and care daily discussed on multidisciplinary rounds ( RN, PharmD, Pediatric Lpn , Respiratory Therapy, food service utility worker ) A total of 32 minutes of critical care time was devoted to this patient today, required to treat and/or prevent further deterioration of critical care condition ( as above ) . I am remotely monitoring this patient from another state. I am unable to do the bedside exam, and history/physical and pertinent information is taken from other notes in the computer and bedside staff. Reason for Visit: Elevated troponin Allergies and Home Medications Allergies Coded Allergies: codeine (Verified Allergy, Unknown, 04/23/16) Home Medications Aspirin 81 Mg Tablet.dr, 81 MG PO DAILY, (Reported) Levothyroxine Sodium 88 Mcg Tablet, 88 MCG PO DAILY, (Reported) Lisinopril 40 Mg Tablet, 40 MG PO DAILY, (Reported) Omeprazole 20 Mg Capsule.dr, 20 MG PO HS, (Reported) Past Medical/Social/Family Hx Patient Social History Marrital Status: single Employed/Student: retired Tobacco Use?: No Smoking Status: Never a Smoker Substance use?: No Alcohol Use?: No Pt stated abuse/neglect: No Immunizations Up To Date Date of Pneumonia Vaccine: May 29, 2014 Current Status Advance Directives: No Primary Language: Cameroonian Preferred Spoken Language: Cameroonian Additional sensory deficits: READING Implanted or Applied Medical D: None Review of Systems Constitutional: other Focused Exam Lactate Level 04/19/23 16:45: Lactic Acid Level 3.22*H 04/19/23 19:31: Lactic Acid Level 1.93 Height, Weight, BMI Height: 5'4.00" Weight: 215lbs. 0.0oz. 97.117540cv; 40.09 BMI Method: Exam Exam Patient acknowledged, consented, and participated in this virtual visit which was conducted using real time audio/video Vital Signs Date Time Temp Pulse Resp B/P (MAP) Pulse Ox O2 Delivery O2 Flow Rate FiO2 04/20/23 11:00 105 24 114/45 (68) 100 High Flow N/C 8.00 04/20/23 10:00 91 22 191/56 (101) 100 High Flow N/C 8.00 04/20/23 09:00 81 32 141/49 (79) 98 High Flow N/C 8.00 04/20/23 08:00 88 31 147/49 (81) 97 High Flow N/C 8.00 04/20/23 07:58 36.2 04/20/23 07:48 87 04/20/23 07:36 94 High Flow N/C 8.00 04/20/23 07:00 78 17 133/51 (78) 98 High Flow N/C 8.00 8/23/23 06:00 87 21 109/38 (61) 100 High Flow N/C 8.00 04/20/23 05:00 90 22 140/52 (81) 98 High Flow N/C 8.00 04/20/23 04:00 81 25 117/48 (71) 97 High Flow N/C 8.00 04/20/23 04:00 98 High Flow N/C 8.00 04/20/23 04:00 35.9 04/20/23 03:00 82 30 111/32 (58) 99 High Flow N/C 8.00 04/20/23 02:35 106 20 192/55 (100) 93 High Flow N/C 8.00 04/20/23 02:00 76 25 95/45 (62) 100 High Flow N/C 8.00 04/20/23 01:00 84 17 127/49 (75) 99 High Flow N/C 8.00 04/20/23 01:00 84 04/20/23 00:17 96 High Flow N/C 8.00 04/20/23 00:00 78 18 103/37 (59) 100 High Flow N/C 8.00 04/20/23 00:00 36.0 04/19/23 23:00 82 19 108/44 (65) 100 High Flow N/C 8.00 04/19/23 22:00 86 18 103/37 (59) 97 High Flow N/C 8.00 04/19/23 21:10 36.3 High Flow N/C 8.00 04/19/23 21:02 96 High Flow N/C 8.00 04/19/23 21:00 89 19 144/40 (74) 98 High Flow N/C 10.00 04/19/23 20:00 89 23 156/50 (85) 95 High Flow N/C 10.00 04/19/23 20:00 99 High Flow N/C 10.00 04/19/23 19:00 95 04/19/23 19:00 95 26 146/43 (77) 98 High Flow N/C 10.00 04/19/23 18:00 91 25 140/48 (78) 100 High Flow N/C 10.00 04/19/23 17:45 93 25 136/42 (73) 98 High Flow N/C 10.00 04/19/23 17:30 93 15 131/47 (75) 100 High Flow N/C 10.00 04/19/23 17:15 85 29 149/46 (80) 99 High Flow N/C 10.00 04/19/23 17:00 95 36 147/92 (110) 97 High Flow N/C 10.00 04/19/23 16:53 103 40 83 04/19/23 16:50 94 10.00 04/19/23 16:45 101 37 157/35 (75) 97 High Flow N/C 10.00 04/19/23 16:30 101 43 173/57 (95) 96 High Flow N/C 10.00 04/19/23 16:25 97 04/19/23 15:35 36.2 99 16 158/65 (96) 96 Nasal Cannula 2.00 04/19/23 13:10 90 I & O 04/20/23 07:00 Intake Total 230 ml Output Total 635 ml Balance -405 ml Height & Weight Height: 5'4.00" Weight: 215lbs. 0.0oz. 97.943764wr; 40.09 BMI Method: General Appearance: No Apparent Distress, Chronically ill, Mild Distress, Other (Cisse and ashen) HEENT: PERRL/EOMI, Normal ENT Inspection, Pharynx Normal Neck: Non Tender, Supple Respiratory: No Respiratory Distress, Accessory Muscle Use (slight), Wheezing (per nurse) Cardiovascular: No No JVD; Normal Peripheral Pulses, Other (abnormal rate 76-106bpm) Capillary Refill: Less Than 3 Seconds Peripheral Pulses: 2+ Radial Pulses (R), 2+ Radial Pulses (L) Gastrointestinal: non tender, no organomegaly Extremity: Swelling, Other (left upper extremity lymph edema from previous breast cancer surgery) Neurologic/Psychiatric: Alert, Oriented x3 Skin: Normal Color, Warm/Dry Lymphatic: No Adenopathy Results Lab Laboratory Tests 04/19/23 05:00 04/19/23 17:23 04/20/23 04:34 04/20/23 05:39 04/20/23 09:50 Assessment/Plan Assessment/Plan 1 ZONIA FOOTE MD Apr 20, 2023 12:14
--- NOTE | 2023-04-20 12:16 | Anesthesia-Procedure Note ---
Procedures/Interventions Procedure Start/Stop/Diagnosis Date of Procedure: Apr 20, 2023 Start Time: 11:55 Referring Physician: Sandra Stop Time: 12:07 Intubation Reason Intubation/Diagnosis: Resp distress/Transer RSI: Yes 100% pre-Ox, [id number]: Yes Intubation Method: orotracheal Videoscope used: Yes Grade View: 2 Medications: Etomidate (20), Rocuronium (50), Versed (1) Mask Ventilation: positive Positive End Tide CO2: Yes Breath Sounds after Intubation: bilateral-equal ETT Securred @ (cm): 21 Intubation Complications: no complications Post Intubation Xray-done: Yes Post Procedure Intubated with difficulty, Care to CUSTOMER TRAINING SPECIALIST Care turned over to: CUSTOMER TRAINING SPECIALIST ALEX Caal CRNA Apr 20, 2023 12:16
--- NOTE | 2023-04-20 12:59 | Occ Therapy Progress Note ---
Therapy Progress Note Patient sedated and intubated. OT will monitor for appropriateness for evaluation DORY MANCILLA OT Apr 20, 2023 12:59
--- NOTE | 2023-04-20 13:20 | Cardiology Progress Note ---
Subjective Date Seen by Provider: Apr 20, 2023 Time Seen by Provider: 13:16 Subjective/Events-last exam Patient was seen at bedside, maintained on BiPAP, lethargic. Deteriorated last night with shortness of breath wheezing and pulmonary edema. Review of Systems General: No Chills, No Night Sweats; Fatigue, Malaise; No Appetite, No Other HEENT: No Head Aches, No Visual Changes, No Eye Pain, No Ear Pain, No Dysphasia, No Sinus Congestion, No Post Nasal Drip, No Sore Throat, No Other Pulmonary: Dyspnea; No Cough, No Pleuritic Chest Pain, No Other Cardiovascular: No: Chest Pain, Palpitations, Orthopnea, Paroxysmal Noc. D yspnea, Edema, Lt Headedness, Other Focused Exam Lactate Level 04/19/23 16:45: Lactic Acid Level 3.22*H 04/19/23 19:31: Lactic Acid Level 1.93 Objective-Cardiology Exam Last Set of Vital Signs Vital Signs 04/17/23 04/20/23 04/20/23 04/20/23 12:22 07:58 12:00 12:54 Temp 36.2 Pulse 80 Resp 19 B/P (MAP) 141/51 (81) Pulse Ox 97 O2 Delivery High Flow N/C O2 Flow Rate 8.00 FiO2 21 I&O Intake and Output 04/20/23 00:00 Intake Total 655 ml Output Total 750 ml Balance -95 ml Intake Oral 655 ml Output Urine Total 750 ml General: Alert, Cooperative, Severe Distress HEENT: Atraumatic, PERRLA, EOMI Neck: Supple Lungs: Normal Air Movement, Other (Bilateral rhonchi) Heart: Normal S1, Normal S2, No Murmurs, Other (Tachycardia) Extremities: No Clubbing, No Cyanosis Neuro: Normal Speech Psych/Mental Status: Mental Status NL, Mood NL Results Lab Laboratory Tests 04/19/23 17:23 04/20/23 04:34 04/20/23 05:39 04/20/23 09:50 A/P-Cardiology Admission Diagnosis Non-ST elevation myocardial infarction Coronary artery disease Acute renal failure Dehydration Assessment/Plan Acute respiratory failure, ARDS secondary to sepsis Currently on BiPAP, deteriorating, responded slightly to diuretic She will need evaluation for possible intubation Sepsis and septic shock, strep agalactiae Was planning for RHEA but was unable to proceed with the procedure due to respiratory failure I performed a transthoracic echo and appeared to have vegetation on the mitral and aortic valve at this point. There is moderate aortic regurgitation Discussed antibiotic coverage, continue with dual antibiotics Recommend removal of old lines and replace them, culture of the tip Patient has an old port that has not been used need to be removed and cultured Recommend referral to a tertiary care center for infectious disease evaluation and critical care/pulmonary management 2D echo was done on April 14, 2023 with moderate LVH, ejection fraction 60 to 65%, grade 1 diastolic dysfunction, mild mitral regurgitation, PA pressure 40 to 45 mmHg, aortic valve sclerosis, mild aortic regurgitation Tachycardia, paroxysmal atrial fibrillation Had paroxysmal atrial tachycardia secondary to sepsis Heart rate is controlled at this point Continue to monitor closely Non-ST elevation myocardial infarction, type II myocardial infarction Mild elevation in troponin, no acute EKG changes Most probably secondary to sepsis Multiple episodes of paroxysmal atrial tachycardia, Maintained on Cardizem CD 240 mg daily Acute renal failure, secondary to dehydration, continue with IV fluid and monito r Lactic acidosis, electrolyte imbalance, secondary to sepsis Managed by medical team JEANNETTE INMAN MD Apr 20, 2023 13:20
--- NOTE | 2023-04-20 13:39 | Progress Note-Post Operative ---
Post-Operative Progess Note Surgeon (s)/Chief Information Officer (s) Surgeon FERMIN CONLEY DO Chief Information Officer: na Pre-Operative Diagnosis sepsis, possible infected port Post-Operative Diagnosis same Procedure & Operative Findings Date of Procedure 04/20/23 Procedure Performed/Findings PROCEDURE: Removal of port, COMPLICATIONS: None. INDICATIONS: The patient is a 82 year-old female who had a port previously placed. Patient with possible infected port. The patient was explained risk and benefits of the procedure and wished to proceed with procedure. Consent was signed on the chart. PROCEDURE: The patient was taken to the operating suite and was prepped and draped in sterile fashion. A surgical pause was performed. Local anesthetic was infiltrated to the area around the port. A number 15 blade scalpel was used to make an incision. Cautery was used to dissect down to the port which was then grasped and then dissected around. The catheter was removed in its entirety. The port was then able to be dissected out of the pocket and elevated. The wound was then irrigated with copious amounts of irrigation. Hemostasis had been achieved. The subcutaneous tissues were then reapproximated using 3-0 Vicryl. Skin was then closed using 4-0 Vicryl in a running fashion. The area was then washed and dried and Skin Affix placed over the incision. The patient tolerated the procedure well without complication and was taken to recovery room in stable condition. Part of the catheter sent for culture. Anesthesia Type intubated Estimated Blood Loss Estimated blood loss (mL): minimal Specimens/Packing Specimens Removed catheter piece for culture. FERMIN CONLEY DO Apr 20, 2023 13:39
--- NOTE | 2023-04-20 13:41 | Diagnostic Imaging Report ---
INDICATION: Post intubation TECHNIQUE: Single view chest 1:26 PM CORRELATION STUDY: 04/20/2023 FINDINGS: Endotracheal tube is in place, tip approximately 5.2 cm above the macario. Gastric tube passes below the left diaphragm, tip likely in the body of the stomach. Heart size and mediastinum are stable. Vasculature has increased from prior and there is a perihilar and slightly basilar opacities favoring edema. Probable small effusions. Surgical clips over the left axilla. IMPRESSION: 1. Interval intubation. 2. Development of what appears to be at least moderate severity edema, adversely changed from prior. Superimposed infiltrate is not excluded, followup imaging is recommended. Dictated by: Dictated on workstation # [id number]
--- NOTE | 2023-04-20 14:04 | Discharge Summary ---
Diagnosis/Chief Complaint Date of Admission Apr 13, 2023 at 18:14 Date of Discharge Discharge Date: Apr 20, 2023 Discharge Diagnosis Assessment: Severe hypovolemia secondary to severe diarrhea Multiple episodes of paroxysmal atrial tachycardia managed by filenet p8 developer UTI w/ Strep. 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 Found down at home - possible fall due to knee pain Sepsis secondary to bacteremia and UTI NSTEMI, Type II AR BRIAN Hyponatremia Hypokalemia resolved Left arm lymphedema Hypothyroidism Left knee OA Hx of HTN Emotional problems Profound leukocytosis Anemia Discharge Summary Discharge Physical Examination Allergies: Coded Allergies: codeine (Verified Allergy, Unknown, 04/23/16) Vitals & I&Os Vital Signs Date Time Temp Pulse Resp B/P (MAP) Pulse Ox O2 Delivery O2 Flow Rate FiO2 04/20/23 16:15 74 25 96/51 (66) 100 Mechanical Ventilator 50.00 04/20/23 14:15 50 04/20/23 13:16 36.3 General Appearance: Other (Sedated and intubated) Hospital Course Was the Problem List Reviewed?: Yes 82-year-old female with a history of high cholesterol, HTN, left knee OA, hypothyroidism, and a port placed in 2004 (last known flush was 2017) for breast cancer was found down at home, sitting in diarrhea and was reported to have large amounts of diarrhea the prior two days. Her WBC was in the 30's, sodium 129, potassium 2.6, troponin 0.336, and BUN/CR of 39/2.31. Patient was admitted to ICU on 04/13/23 and was found to have severe hypovolemia due to diarrhea, sepsis from UTI & bacteremia, type II AR, BRIAN, hyponatremia with hypokalemia, and anemia. During her stay, she was treated with IV fluids and empiric antibiotics of vancomycin & cefepime for C. difficile & UTI, respectively. Blood & urine cultures showed growth for Strep agalactiae. Furthermore, patient experienced multiple episodes of paroxysmal atrial tachycardia which cardiology started her on Cardizem CD. Once the patient was stable, she was transferred to [facility] on 04/15/22 and was continuing to feel unwell and was still having lots of pain from her left knee OA. She was consulted by medical oncology for acute leukemia but evidence supported acute severe WBC and anemia. On 04/18/23, patient was placed on IV gentamicin and IV ceftriaxone for Strep agalactiae UTI and bacteremia. On 04/19/23, patient was scheduled for a RHEA to rule out endocarditis, but had to be transferred back to ICU for incontinence with diarrhea, SOB, and hypotensive with V. tach. Later that night, the patient deteriorated and had acute respiratory failure with hypoxia and was started on BiPAP with possibility of intubation. 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 Surgery came in and performed removal of the port without any complications. It was decided that the patient was going to be intubated and flown out to [facility] care from [place] and infectious disease. Patient was discharged on 04/20/23. ALESHA [facility] Labs (last 24 hrs) Laboratory Tests 04/13/23 15:42: White Blood Count 29.6H, Red Blood Count 4.31, Hemoglobin 11.6, Hematocrit 33L, Mean Corpuscular Volume 77L, Mean Corpuscular Hemoglobin 27, Mean Corpuscular Hemoglobin Concent 35, Red Cell Distribution Width 16.5H, Platelet Count 251, Mean Platelet Volume 12.7H, Immature Granulocyte % (Auto) 4, Neutrophils (%) (Auto) 87H, Lymphocytes (%) (Auto) 5L, Monocytes (%) (Auto) 4, Eosinophils (%) (Auto) 0, Basophils (%) (Auto) 0, Neutrophils # (Auto) 25.8H, Lymphocytes # (Auto) 1.4, Monocytes # (Auto) 1.2H, Eosinophils # (Auto) 0.1, Basophils # (Auto) 0.0, Immature Granulocyte # (Auto) 1.1H, Neutrophils % (Manual) 89, Lymphocytes % (Manual) 5, Monocytes % (Manual) 6, Poikilocytosis SLIGHT, Anisocytosis SLIGHT, Prothrombin Time 14.6, INR Comment 1.1, Activated Partial Thromboplast Time 29, Sodium Level 129L, Potassium Level 2.6L, Chloride Level 97L, Carbon Dioxide Level 22, Anion Gap 10, Blood Urea Nitrogen 39H, Creatinine 2.31H, Estimat Glomerular Filtration Rate 21, BUN/Creatinine Ratio 17, Glucose Level 113H, Calcium Level 9.1, Corrected Calcium 10.1, Magnesium Level 2.2, Iron Level 10L, Total Iron Binding Capacity 187L, Unsaturated Iron Binding Capacity 177, Transferrin % Saturation 5L, Ferritin 201.0H, Total Bilirubin 0.7, Aspartate Amino Transf (AST/SGOT) 43H, Alanine Aminotransferase (ALT/SGPT) 23, Alkaline Phosphatase 99, Troponin I 0.336*H, Total Protein 5.8L, Albumin 2.7L, Lipase 15 04/13/23 15:56: Influenza Type A (RT-PCR) Not Detected, Influenza Type B (RT-PCR) Not Detected, SARS-CoV-2 RNA (RT-PCR) Not Detected 04/13/23 16:40: Lactic Acid Level 1.58 04/13/23 16:56: Urine Color YELLOW, Urine Clarity CLEAR, Urine pH 5.5, Urine Specific Roll 1.025H, Urine Protein 2+H, Urine Glucose (UA) NEGATIVE, Urine Ketones NEGATIVE, Urine Nitrite NEGATIVE, Urine Bilirubin 1+H, Urine Urobilinogen 1.0, Urine Leukocyte Esterase NEGATIVE, Urine RBC (Auto) 1+H, Urine RBC 2-5H, Urine WBC 5- 10H, Urine Squamous Epithelial Cells 2-5, Urine Crystals NONE, Urine Bacteria MODERATEH, Urine Casts PRESENT, Urine Hyaline Casts 10-25H, Urine Mucus NEGAT OFELIA, Urine Culture Indicated YES 04/13/23 18:14: Lab Scanned Report Referred Lab Report 04/13/23 20:45: Glucometer 122H 04/13/23 22:03: Sodium Level 133L, Potassium Level 3.0L, Chloride Level 102, Carbon Dioxide Level 19L, Anion Gap 12, Blood Urea Nitrogen 40H, Creatinine 2.05H, Estimat Glomerular Filtration Rate 24, BUN/Creatinine Ratio 20, Glucose Level 114H, Calcium Level 8.4L 04/14/23 03:57: Sodium Level 129L, Potassium Level 3.3L, Chloride Level 104, Carbon Dioxide Level 17L, Anion Gap 8, Blood Urea Nitrogen 42H, Creatinine 1.89H, Estimat Glomerular Filtration Rate 27, BUN/Creatinine Ratio 22, Glucose Level 104, Calcium Level 8.0L, White Blood Count 26.9H, Red Blood Count 3.63L, Hemoglobin 9.9L, Hematocrit 28L, Mean Corpuscular Volume 76L, Mean Corpuscular Hemoglobin 27, Mean Corpuscular Hemoglobin Concent 36, Red Cell Distribution Width 16.6H, Platelet Count 212, Mean Platelet Volume 11.8, Immature Granulocyte % (Auto) 4, Neutrophils (%) (Auto) 84H, Lymphocytes (%) (Auto) 5L, Monocytes (%) (Auto) 7, Eosinophils (%) (Auto) 0, Basophils (%) (Auto) 1, Neutrophils # (Auto) 22.6H, Lymphocytes # (Auto) 1.4, Monocytes # (Auto) 1.7H, Eosinophils # (Auto) 0.0, Basophils # (Auto) 0.1, Immature Granulocyte # (Auto) 0.9H, Corrected Calcium 9.5, Phosphorus Level 3.5, Magnesium Level 1.9, Total Bilirubin 0.6, Aspartate Amino Transf (AST/SGOT) 27, Alanine Aminotransferase (ALT/SGPT) 20, Alkaline Phosphatase 82, Troponin I 0.263H, Total Protein 4.2L, Albumin 2.1L, Trig lycerides Level 100, Cholesterol Level 74, LDL Cholesterol Direct 43, VLDL Cholesterol 20, HDL Cholesterol < 15L 04/14/23 10:56: Glucometer 89 04/14/23 15:35: Glucometer 93 04/14/23 20:56: Glucometer 127H 04/15/23 04:20: White Blood Count 28.9H, Red Blood Count 3.50L, Hemoglobin 9.3L, Hematocrit 27L, Mean Corpuscular Volume 78L, Mean Corpuscular Hemoglobin 27, Mean Corpuscular Hemoglobin Concent 34, Red Cell Distribution Width 17.2H, Platelet Count 260, Mean Platelet Volume 11.2, Immature Granulocyte % (Auto) 5, Neutrophils (%) (Auto) 82H, Lymphocytes (%) (Auto) 6L, Monocytes (%) (Auto) 6, Eosinophils (%) (Auto) 1, Basophils (%) (Auto) 0, Neutrophils # (Auto) 23.7H, Lymphocytes # (Auto) 1.7, Monocytes # (Auto) 1.8H, Eosinophils # (Auto) 0.2, Basophils # (Auto) 0.1, Immature Granulocyte # (Auto) 1.3H, Neutrophils % (Manual) 89, Lymphocytes % (Manual) 5, Monocytes % (Manual) 6, Eosinophils % (Manual) 0, Basophils % (Manual) 0, Band Neutrophils 0, Percent Immature Platelet Fraction 6.2, Polychromasia SLIGHT, Anisocytosis SLIGHT, Target Cells SLIGHT, Absolute Reticulocyte Count 28, Percent Reticulocyte Count 0.82, Sodium Level 128L, Potassium Level 4.1, Chloride Level 106, Carbon Dioxide Level 13L, Anion Gap 9, Blood Urea Nitrogen 35H, Creatinine 1.30, Estimat Glomerular Filtration Rate 42, BUN/Creatinine Ratio 27, Glucose Level 85, Calcium Level 8.0L, Corrected Calcium 9.6, Phosphorus Level 3.3, Magnesium Level 2.0, Total Bilirubin 0.7, Aspartate Amino Transf (AST/SGOT) 28, Alanine Aminotransferase (ALT/SGPT) 20, Alkaline Phosphatase 83, Lactate Dehydrogenase 257H, Total Protein 4.8L, Albumin 2.0L 04/15/23 10:39: Glucometer 130H 04/15/23 16:20: Glucometer 111H 04/15/23 20:05: Glucometer 113H 04/16/23 04:57: Glucometer 85 04/16/23 04:58: White Blood Count 29.3H, Red Blood Count 3.38L, Hemoglobin 9.2L, Hematocrit 26L, Mean Corpuscular Volume 76L, Mean Corpuscular Hemoglobin 27, Mean Corpuscular Hemoglobin Concent 36, Red Cell Distribution Width 16.8H, Platelet Count 320, Mean Platelet Volume 10.8, Immature Granulocyte % (Auto) 8, Neutrophils (%) (Auto) 77H, Lymphocytes (%) (Auto) 7L, Monocytes (%) (Auto) 7, Eosinophils (%) (Auto) 1, Basophils (%) (Auto) 0, Neutrophils # (Auto) 22.5H, Lymphocytes # (Auto) 1.9, Monocytes # (Auto) 2.0H, Eosinophils # (Auto) 0.3, Basophils # (Auto) 0.1, Immature Granulocyte # (Auto) 2.4H, Sodium Level 129L, Potassium Level 4.4, Chloride Level 107, Carbon Dioxide Level 13L, Anion Gap 9, Blood Urea Nitrogen 30H, Creatinine 1.00, Estimat Glomerular Filtration Rate 57, BUN/Creatinine Ratio 30, Glucose Level 87, Calcium Level 8.1L, Corrected Calcium 9.8, Magnesium Level 1.9, Total Bilirubin 1.2H, Aspartate Amino Transf (AST/SGOT) 32, Alanine Aminotransferase (ALT/SGPT) 21, Alkaline Phosphatase 85, Total Protein 4.7L, Albumin 1.9L 04/16/23 10:31: Glucometer 115H 04/16/23 15:23: Glucometer 108 04/16/23 19:50: Glucometer 105 04/17/23 05:00: Glucometer 101 04/17/23 05:02: White Blood Count 30.7*H, Red Blood Count 3.36L, Hemoglobin 8.9L, Hematocrit 26L , Mean Corpuscular Volume 77L, Mean Corpuscular Hemoglobin 27, Mean Corpuscular Hemoglobin Concent 34, Red Cell Distribution Width 16.9H, Platelet Count 395, Mean Platelet Volume 10.8, Immature Granulocyte % (Auto) 12, Neutrophils (%) (Auto) 74, Lymphocytes (%) (Auto) 6L, Monocytes (%) (Auto) 7, Eosinophils (%) (Auto) 1, Basophils (%) (Auto) 0, Neutrophils # (Auto) 22.7H, Lymphocytes # (Auto) 1.8, Monocytes # (Auto) 2.3H, Eosinophils # (Auto) 0.2, Basophils # (Auto) 0.1, Immature Granulocyte # (Auto) 3.7H, Sodium Level 129L, Potassium Level 4.5, Chloride Level 109H, Carbon Dioxide Level 15L, Anion Gap 5, Blood Urea Nitrogen 26H, Creatinine 0.90, Estimat Glomerular Filtration Rate 65, BUN/Creatinine Ratio 29, Glucose Level 103, Calcium Level 7.9L, Corrected Calcium 9.6, Magnesium Level 1.9, Total Bilirubin 1.3H, Aspartate Amino Transf (AST/SGOT) 42H, Alanine Aminotransferase (ALT/SGPT) 30, Alkaline Phosphatase 81, Total Protein 4.9L, Albumin 1.9L 04/17/23 10:12: Glucometer 101 04/17/23 15:22: Glucometer 97 04/17/23 20:17: Glucometer 125H 04/18/23 01:45: Glucometer 121H 04/18/23 04:07: White Blood Count 34.0*H, Red Blood Count 3.11L, Hemoglobin 8.4L, Hematocrit 24L , Mean Corpuscular Volume 78L, Mean Corpuscular Hemoglobin 27, Mean Corpuscular Hemoglobin Concent 35, Red Cell Distribution Width 16.8H, Platelet Count 394, Mean Platelet Volume 10.0, Immature Granulocyte % (Auto) 12, Neutrophils (%) (Auto) 76H, Lymphocytes (%) (Auto) 6L, Monocytes (%) (Auto) 6, Eosinophils (%) (Auto) 1, Basophils (%) (Auto) 0, Neutrophils # (Auto) 25.7H, Lymphocytes # (Auto) 2.0, Monocytes # (Auto) 2.0H, Eosinophils # (Auto) 0.2, Basophils # (Auto) 0.2H, Immature Granulocyte # (Auto) 3.9H, Neutrophils % (Manual) 66, Lymphocytes % (Manual) 8, Prolymphocyte % 1, Monocytes % (Manual) 9, Eosinophils % (Manual) 1, Metamyelocytes % 1, Myelocytes % 3, Promyelocytes % 1, Band Neutr ophils 10, Polychromasia SLIGHT, Anisocytosis SLIGHT, Elliptocytes SLIGHT, Sodium Level 129L, Potassium Level 4.9, Chloride Level 109H, Carbon Dioxide Level 14L, Anion Gap 6, Blood Urea Nitrogen 30H, Creatinine 1.06, Estimat Glomerular Filtration Rate 53, BUN/Creatinine Ratio 28, Glucose Level 115H, Calcium Level 7.8L, Corrected Calcium 9.6, Magnesium Level 2.0, Total Bilirubin 0.9, Aspartate Amino Transf (AST/SGOT) 41H, Alanine Aminotransferase (ALT/SGPT) 32, Alkaline Phosphatase 76, Total Protein 4.3L, Albumin 1.8L, Vitamin B12 Level 1056 04/18/23 11:26: Glucometer 105 04/18/23 15:46: Glucometer 101 04/18/23 21:32: Glucometer 79 04/19/23 05:00: White Blood Count 37.1*H, Red Blood Count 3.05L, Hemoglobin 8.2L, Hematocrit 24L , Mean Corpuscular Volume 80, Mean Corpuscular Hemoglobin 27, Mean Corpuscular Hemoglobin Concent 34, Red Cell Distribution Width 17.9H, Platelet Count 404H, Mean Platelet Volume 10.4, Immature Granulocyte % (Auto) 11, Neutrophils (%) (Auto) 76H, Lymphocytes (%) (Auto) 6L, Monocytes (%) (Auto) 6, Eosinophils (%) (Auto) 1, Basophils (%) (Auto) 1, Neutrophils # (Auto) 28.0H, Lymphocytes # (Auto) 2.2, Monocytes # (Auto) 2.3H, Eosinophils # (Auto) 0.2, Basophils # (Auto) 0.2H, Immature Granulocyte # (Auto) 4.2H, Sodium Level 128L, Potassium Level 5.5H, Chloride Level 109H, Carbon Dioxide Level 13L, Anion Gap 6, Blood Urea Nitrogen 39H, Creatinine 1.31H, Estimat Glomerular Filtration Rate 41, BUN/Creatinine Ratio 30, Glucose Level 100, Calcium Level 7.9L, Corrected Calcium 9.7, Magnesium Level 2.2, Total Bilirubin 0.6, Aspartate Amino Transf (AST/SGOT) 37H, Alanine Aminotransferase (ALT/SGPT) 28, Alkaline Phosphatase 66, Total Protein 4.3L, Albumin 1.8L, Gentamicin Level Trough 3.0*H 04/19/23 05:18: Glucometer 95 04/19/23 08:15: Gentamicin Level Peak 5.1L 04/19/23 11:35: Glucometer 114H 04/19/23 15:41: Glucometer 103 04/19/23 16:45: Lactic Acid Level 3.22*H 04/19/23 17:23: Sodium Level 130L, Potassium Level 5.6H, Chloride Level 108H, Carbon Dioxide Level 13L, Anion Gap 9, Blood Urea Nitrogen 41H, Creatinine 1.67H, Estimat Glomerular Filtration Rate 31, BUN/Creatinine Ratio 25, Glucose Level 130H, Calcium Level 8.5, Magnesium Level 2.5H, Troponin I 2.856*H, B-Type Natriuretic Peptide 1689.0H 04/19/23 19:31: Lactic Acid Level 1.93 04/19/23 20:13: Glucometer 116H 04/20/23 04:34: Sodium Level 129L, Potassium Level 5.9H, Chloride Level 108H, Carbon Dioxide Level 10L, Anion Gap 11, Blood Urea Nitrogen 48H, Creatinine 1.87H, Estimat Glomerular Filtration Rate 27, BUN/Creatinine Ratio 26, Glucose Level 105, Calcium Level 7.9L, Magnesium Level 2.4, Corrected Calcium 9.5, Total Bilirubin 0.6, Aspartate Amino Transf (AST/SGOT) 84H, Alanine Aminotransferase (ALT/SGPT) 54, Alkaline Phosphatase 66, Total Protein 4.7L, Albumin 2.0L 04/20/23 05:39: White Blood Count 41.0*H, Red Blood Count 2.98L, Hemoglobin 8.2L, Hematocrit 24L , Mean Corpuscular Volume 82, Mean Corpuscular Hemoglobin 28, Mean Corpuscular Hemoglobin Concent 34, Red Cell Distribution Width 18.3H, Platelet Count 443H, Mean Platelet Volume 10.8, Immature Granulocyte % (Auto) 11, Neutrophils (%) (Auto) 79H, Lymphocytes (%) (Auto) 5L, Monocytes (%) (Auto) 5, Eosinophils (%) (Auto) 0, Basophils (%) (Auto) 1, Neutrophils # (Auto) 32.3H, Lymphocytes # (Auto) 2.1, Monocytes # (Auto) 1.9H, Eosinophils # (Auto) 0.1, Basophils # (Auto) 0.2H, Immature Granulocyte # (Auto) 4.3H, Neutrophils % (Manual) 83, Lymphocytes % (Manual) 6, Monocytes % (Manual) 4, Eosinophils % (Manual) 1, Band Neutrophils 6, Toxic Granulation 1+, Polychromasia SLIGHT, Hypochromasia SLIGHT, Poikilocytosis SLIGHT, Anisocytosis SLIGHT, Microcytosis SLIGHT, Elliptocytes SLIGHT 04/20/23 08:00: Glucometer 193H 04/20/23 09:50: Sodium Level 131L, Potassium Level 5.6H, Chloride Level 109H, Carbon Dioxide Level 12L, Anion Gap 10, Blood Urea Nitrogen 49H, Creatinine 1.86H, Estimat Glomerular Filtration Rate 27, BUN/Creatinine Ratio 26, Glucose Level 131H, Calcium Level 8.2L, Triglycerides Level 96 04/20/23 14:05: Blood Gas Puncture Site UNK, Blood Gas Patient Temperature 36.3, Arterial Blood pH 7.22*L, Arterial Blood Partial Pressure CO2 34L, Arterial Blood Partial Pressure O2 74L, Arterial Blood HCO3 14*L, Arterial Blood Total CO2 14.6L, Arterial Blood Oxygen Saturation 91L, Arterial Blood Base Excess -12.8L, Tristian Test YES-POS, Blood Gas Ventilator Setting YES, Blood Gas Inspired Oxygen 50% Microbiology 04/20/23 Catheter Tip Culture - Preliminary, Resulted 04/13/23 MRSA Screen - Final, Complete MRSA not isolated 04/13/23 Urine Culture - Final, Complete Strep agalactiae Group B See Comments Pending Labs Microbiology Date/Time Source Procedure Growth Status 04/20/23 12:14 Port-A-Cath N/A Catheter Tip Culture - Preliminary Resulted 04/17/23 09:52 Peripheral Right Wrist Blood Culture - Preliminary No growth Resulted 04/17/23 09:52 Peripheral Rt Hand Blood Culture - Preliminary No growth Resulted 04/13/23 18:35 Nasal MRSA Screen - Final MRSA not isolated Complete 04/13/23 17:12 Peripheral Right Wrist Blood Culture - Final Strep agalactiae Group B Complete 04/13/23 16:56 Urine Type Of Collection Uncertain Urine Culture - Final Strep agalactiae Group B See Comments Complete 04/13/23 16:40 Peripheral Rt Ac Blood Culture - Final Strep agalactiae Group B Complete Laboratory Tests 04/13/23 15:42: White Blood Count 29.6, Red Blood Count 4.31, Hemoglobin 11.6, Hematocrit 33, Mean Corpuscular Volume 77, Mean Corpuscular Hemoglobin 27, Mean Corpuscular Hemoglobin Concent 35, Red Cell Distribution Width 16.5, Platelet Count 251, Mean Platelet Volume 12.7, Immature Granulocyte % (Auto) 4, Neutrophils (%) (Auto) 87, Lymphocytes (%) (Auto) 5, Monocytes (%) (Auto) 4, Eosinophils (%) (Auto) 0, Basophils (%) (Auto) 0, Neutrophils # (Auto) 25.8, Lymphocytes # (Auto) 1.4, Monocytes # (Auto) 1.2, Eosinophils # (Auto) 0.1, Basophils # (Auto) 0.0, Immature Granulocyte # (Auto) 1.1, Neutrophils % (Manual) 89, Lymphocytes % (Manual) 5, Monocytes % (Manual) 6, Poikilocytosis SLIGHT, Anisocytosis SLIGHT, Prothrombin Time 14.6, INR Comment 1.1, Activated Partial Thromboplast Time 29, Sodium Level 129, Potassium Level 2.6, Chloride Level 97, Carbon Dioxide Level 22, Anion Gap 10, Blood Urea Nitrogen 39, Creatinine 2.31, Estimat Glomerular Filtration Rate 21, BUN/Creatinine Ratio 17, Glucose Level 113, Calcium Level 9.1, Corrected Calcium 10.1, Magnesium Level 2.2, Iron Level 10, Total Iron Binding Capacity 187, Unsaturated Iron Binding Capacity 177, Transferrin % Saturation 5, Ferritin 201.0, Total Bilirubin 0.7, Aspartate Amino Transf (AST/SGOT) 43, Alanine Aminotransferase (ALT/SGPT) 23, Alkaline Phosphatase 99, Troponin I 0.336, Total Protein 5.8, Albumin 2.7, Lipase 15 04/13/23 15:56: Influenza Type A (RT-PCR) Not Detected, Influenza Type B (RT-PCR) Not Detected, SARS-CoV-2 RNA (RT-PCR) Not Detected 04/13/23 16:40: Lactic Acid Level 1.58 04/13/23 16:56: Urine Color YELLOW, Urine Clarity CLEAR, Urine pH 5.5, Urine Specific Roll 1.025, Urine Protein 2+, Urine Glucose (UA) NEGATIVE, Urine Ketones NEGATIVE, Urine Nitrite NEGATIVE, Urine Bilirubin 1+, Urine Urobilinogen 1.0, Urine Leukocyte Esterase NEGATIVE, Urine RBC (Auto) 1+, Urine RBC 2-5, Urine WBC 5-10, Urine Squamous Epithelial Cells 2-5, Urine Crystals NONE, Urine Bacteria MODERATE, Urine Casts PRESENT, Urine Hyaline Casts 10-25, Urine Mucus NEGATIVE, Urine Culture Indicated YES 04/13/23 18:14: Lab Scanned Report Referred Lab Report 04/13/23 20:45: Glucometer 122 04/13/23 22:03: Sodium Level 133, Potassium Level 3.0, Chloride Level 102, Carbon Dioxide Level 19, Anion Gap 12, Blood Urea Nitrogen 40, Creatinine 2.05, Estimat Glomerular Filtration Rate 24, BUN/Creatinine Ratio 20, Glucose Level 114, Calcium Level 8.4 04/14/23 03:57: Sodium Level 129, Potassium Level 3.3, Chloride Level 104, Carbon Dioxide Level 17, Anion Gap 8, Blood Urea Nitrogen 42, Creatinine 1.89, Estimat Glomerular Filtration Rate 27, BUN/Creatinine Ratio 22, Glucose Level 104, Calcium Level 8.0, White Blood Count 26.9, Red Blood Count 3.63, Hemoglobin 9.9, Hematocrit 28, Mean Corpuscular Volume 76, Mean Corpuscular Hemoglobin 27, Mean Corpuscular Hemoglobin Concent 36, Red Cell Distribution Width 16.6, Platelet Count 212, Mean Platelet Volume 11.8, Immature Granulocyte % (Auto) 4, Neutrophils (%) (Auto) 84, Lymphocytes (%) (Auto) 5, Monocytes (%) (Auto) 7, Eosinophils (%) ( Auto) 0, Basophils (%) (Auto) 1, Neutrophils # (Auto) 22.6, Lymphocytes # (Auto) 1.4, Monocytes # (Auto) 1.7, Eosinophils # (Auto) 0.0, Basophils # (Auto) 0.1, Immature Granulocyte # (Auto) 0.9, Corrected Calcium 9.5, Phosphorus Level 3.5, Magnesium Level 1.9, Total Bilirubin 0.6, Aspartate Amino Transf (AST/SGOT) 27, Alanine Aminotransferase (ALT/SGPT) 20, Alkaline Phosphatase 82, Troponin I 0.263, Total Protein 4.2, Albumin 2.1, Triglycerides Level 100, Cholesterol Level 74, LDL Cholesterol Direct 43, VLDL Cholesterol 20, HDL Cholesterol < 15 04/14/23 10:56: Glucometer 89 04/14/23 15:35: Glucometer 93 04/14/23 20:56: Glucometer 127 04/15/23 04:20: White Blood Count 28.9, Red Blood Count 3.50, Hemoglobin 9.3, Hematocrit 27, Mean Corpuscular Volume 78, Mean Corpuscular Hemoglobin 27, Mean Corpuscular Hem oglobin Concent 34, Red Cell Distribution Width 17.2, Platelet Count 260, Mean Platelet Volume 11.2, Immature Granulocyte % (Auto) 5, Neutrophils (%) (Auto) 82, Lymphocytes (%) (Auto) 6, Monocytes (%) (Auto) 6, Eosinophils (%) (Auto) 1, Basophils (%) (Auto) 0, Neutrophils # (Auto) 23.7, Lymphocytes # (Auto) 1.7, Monocytes # (Auto) 1.8, Eosinophils # (Auto) 0.2, Basophils # (Auto) 0.1, Immature Granulocyte # (Auto) 1.3, Neutrophils % (Manual) 89, Lymphocytes % (Manual) 5, Monocytes % (Manual) 6, Eosinophils % (Manual) 0, Basophils % (Manual) 0, Band Neutrophils 0, Percent Immature Platelet Fraction 6.2, Polychromasia SLIGHT, Anisocytosis SLIGHT, Target Cells SLIGHT, Absolute Reticulocyte Count 28, Percent Reticulocyte Count 0.82, Sodium Level 128, Potassium Level 4.1, Chloride Level 106, Carbon Dioxide Level 13, Anion Gap 9, Blood Urea Nitrogen 35, Creatinine 1.30, Estimat Glomerular Filtration Rate 42, BUN/Creatinine Ratio 27, Glucose Level 85, Calcium Level 8.0, Corrected Calcium 9.6, Phosphorus Level 3.3, Magnesium Level 2.0, Total Bilirubin 0.7, Aspartate Amino Transf (AST/SGOT) 28, Alanine Aminotransferase (ALT/SGPT) 20, Alkaline Phosphatase 83, Lactate Dehydrogenase 257, Total Protein 4.8, Albumin 2.0 04/15/23 10:39: Glucometer 130 04/15/23 16:20: Glucometer 111 04/15/23 20:05: Glucometer 113 04/16/23 04:57: Glucometer 85 04/16/23 04:58: White Blood Count 29.3, Red Blood Count 3.38, Hemoglobin 9.2, Hematocrit 26, Mean Corpuscular Volume 76, Mean Corpuscular Hemoglobin 27, Mean Corpuscular Hemoglobin Concent 36, Red Cell Distribution Width 16.8, Platelet Count 320, Mean Platelet Volume 10.8, Immature Granulocyte % (Auto) 8, Neutrophils (%) (Auto) 77, Lymphocytes (%) (Auto) 7, Monocytes (%) (Auto) 7, Eosinophils (%) (Auto) 1, Basophils (%) (Auto) 0, Neutrophils # (Auto) 22.5, Lymphocytes # (Auto) 1.9, Monocytes # (Auto) 2.0, Eosinophils # (Auto) 0.3, Basophils # (Auto) 0.1, Immature Granulocyte # (Auto) 2.4, Sodium Level 129, Potassium Level 4.4, Chloride Level 107, Carbon Dioxide Level 13, Anion Gap 9, Blood Urea Nitrogen 30, Creatinine 1.00, Estimat Glomerular Filtration Rate 57, BUN/Creatinine Ratio 30, Glucose Level 87, Calcium Level 8.1, Corrected Calcium 9.8, Magnesium Level 1.9, Total Bilirubin 1.2, Aspartate Amino Transf (AST/SGOT) 32, Alanine Aminotransferase (ALT/SGPT) 21, Alkaline Phosphatase 85, Total Protein 4.7, Albumin 1.9 04/16/23 10:31: Glucometer 115 04/16/23 15:23: Glucometer 108 04/16/23 19:50: Glucometer 105 04/17/23 05:00: Glucometer 101 04/17/23 05:02: White Blood Count 30.7, Red Blood Count 3.36, Hemoglobin 8.9, Hematocrit 26, Mean Corpuscular Volume 77, Mean Corpuscular Hemoglobin 27, Mean Corpuscular Hemoglobin Concent 34, Red Cell Distribution Width 16.9, Platelet Count 395, Mean Platelet Volume 10.8, Immature Granulocyte % (Auto) 12, Neutrophils (%) (Auto) 74, Lymphocytes (%) (Auto) 6, Monocytes (%) (Auto) 7, Eosinophils (%) (Auto) 1, Basophils (%) (Auto) 0, Neutrophils # (Auto) 22.7, Lymphocytes # (Auto) 1.8, Monocytes # (Auto) 2.3, Eosinophils # (Auto) 0.2, Basophils # (Auto) 0.1, Immature Granulocyte # (Auto) 3.7, Sodium Level 129, Potassium Level 4.5, Chloride Level 109, Carbon Dioxide Level 15, Anion Gap 5, Blood Urea Nitrogen 26, Creatinine 0.90, Estimat Glomerular Filtration Rate 65, BUN/Creatinine Ratio 29, Glucose Level 103, Calcium Level 7.9, Corrected Calcium 9.6, Magnesium Level 1.9, Total Bilirubin 1.3, Aspartate Amino Transf (AST/SGOT) 42, Alanine Aminotransferase (ALT/SGPT) 30, Alkaline Phosphatase 81, Total Protein 4.9, Albumin 1.9 04/17/23 10:12: Glucometer 101 04/17/23 15:22: Glucometer 97 04/17/23 20:17: Glucometer 125 04/18/23 01:45: Glucometer 121 04/18/23 04:07: White Blood Count 34.0, Red Blood Count 3.11, Hemoglobin 8.4, Hematocrit 24, Mean Corpuscular Volume 78, Mean Corpuscular Hemoglobin 27, Mean Corpuscular Hemoglobin Concent 35, Red Cell Distribution Width 16.8, Platelet Count 394, Mean Platelet Volume 10.0, Immature Granulocyte % (Auto) 12, Neutrophils (%) (Auto) 76, Lymphocytes (%) (Auto) 6, Monocytes (%) (Auto) 6, Eosinophils (%) (Auto) 1, Basophils (%) (Auto) 0, Neutrophils # (Auto) 25.7, Lymphocytes # (Auto) 2.0, Monocytes # (Auto) 2.0, Eosinophils # (Auto) 0.2, Basophils # (Auto) 0.2, Immature Granulocyte # (Auto) 3.9, Neutrophils % (Manual) 66, Lymphocytes % (Manual) 8, Prolymphocyte % 1, Monocytes % (Manual) 9, Eosinophils % (Manual) 1, Metamyelocytes % 1, Myelocytes % 3, Promyelocytes % 1, Band Neutrophils 10, Polychromasia SLIGHT, Anisocytosis SLIGHT, Elliptocytes SLIGHT, Sodium Level 129, Potassium Level 4.9, Chloride Level 109, Carbon Dioxide Level 14, Anion Gap 6, Blood Urea Nitrogen 30, Creatinine 1.06, Estimat Glomerular Filtration Rate 53, BUN/Creatinine Ratio 28, Glucose Level 115, Calcium Level 7.8, Corrected Calcium 9.6, Magnesium Level 2.0, Total Bilirubin 0.9, Aspartate Amino Transf (AST/SGOT) 41, Alanine Aminotransferase (ALT/SGPT) 32, Alkaline Phosphatase 76, Total Protein 4.3, Albumin 1.8, Vitamin B12 Level 1056 04/18/23 11:26: Glucometer 105 04/18/23 15:46: Glucometer 101 04/18/23 21:32: Glucometer 79 04/19/23 05:00: White Blood Count 37.1, Red Blood Count 3.05, Hemoglobin 8.2, Hematocrit 24, Mean Corpuscular Volume 80, Mean Corpuscular Hemoglobin 27, Mean Corpuscular Hemoglobin Concent 34, Red Cell Distribution Width 17.9, Platelet Count 404, Mean Platelet Volume 10.4, Immature Granulocyte % (Auto) 11, Neutrophils (%) (Auto) 76, Lymphocytes (%) (Auto) 6, Monocytes (%) (Auto) 6, Eosinophils (%) (Auto) 1, Basophils (%) (Auto) 1, Neutrophils # (Auto) 28.0, Lymphocytes # (Auto) 2.2, Monocytes # (Auto) 2.3, Eosinophils # (Auto) 0.2, Basophils # (Auto) 0.2, Immature Granulocyte # (Auto) 4.2, Sodium Level 128, Potassium Level 5.5, Chloride Level 109, Carbon Dioxide Level 13, Anion Gap 6, Blood Urea Nitrogen 39, Creatinine 1.31, Estimat Glomerular Filtration Rate 41, BUN/Creatinine Ratio 30, Glucose Level 100, Calcium Level 7.9, Corrected Calcium 9.7, Magnesium Level 2.2, Total Bilirubin 0.6, Aspartate Amino Transf (AST/SGOT) 37, Alanine Aminotransferase (ALT/SGPT) 28, Alkaline Phosphatase 66, Total Protein 4.3, Albumin 1.8, Gentamicin Level Trough 3.0 04/19/23 05:18: Glucometer 95 04/19/23 08:15: Gentamicin Level Peak 5.1 04/19/23 11:35: Glucometer 114 04/19/23 15:41: Glucometer 103 04/19/23 16:45: Lactic Acid Level 3.22 04/19/23 17:23: Sodium Level 130, Potassium Level 5.6, Chloride Level 108, Carbon Dioxide Level 13, Anion Gap 9, Blood Urea Nitrogen 41, Creatinine 1.67, Estimat Glomerular Filtration Rate 31, BUN/Creatinine Ratio 25, Glucose Level 130, Calcium Level 8.5, Magnesium Level 2.5, Troponin I 2.856, B-Type Natriuretic Peptide 1689.0 04/19/23 19:31: Lactic Acid Level 1.93 04/19/23 20:13: Glucometer 116 04/20/23 04:34: Sodium Level 129, Potassium Level 5.9, Chloride Level 108, Carbon Dioxide Level 10, Anion Gap 11, Blood Urea Nitrogen 48, Creatinine 1.87, Estimat Glomerular Filtration Rate 27, BUN/Creatinine Ratio 26, Glucose Level 105, Calcium Level 7.9, Magnesium Level 2.4, Corrected Calcium 9.5, Total Bilirubin 0.6, Aspartate Amino Transf (AST/SGOT) 84, Alanine Aminotransferase (ALT/SGPT) 54, Alkaline Phosphatase 66, Total Protein 4.7, Albumin 2.0 04/20/23 05:39: White Blood Count 41.0, Red Blood Count 2.98, Hemoglobin 8.2, Hematocrit 24, Mean Corpuscular Volume 82, Mean Corpuscular Hemoglobin 28, Mean Corpuscular Hemoglobin Concent 34, Red Cell Distribution Width 18.3, Platelet Count 443, Mean Platelet Volume 10.8, Immature Granulocyte % (Auto) 11, Neutrophils (%) (Auto) 79, Lymphocytes (%) (Auto) 5, Monocytes (%) (Auto) 5, Eosinophils (%) (Auto) 0, Basophils (%) (Auto) 1, Neutrophils # (Auto) 32.3, Lymphocytes # (Auto) 2.1, Monocytes # (Auto) 1.9, Eosinophils # (Auto) 0.1, Basophils # (Auto) 0.2, Immature Granulocyte # (Auto) 4.3, Neutrophils % (Manual) 83, Lymphocytes % (Manual) 6, Monocytes % (Manual) 4, Eosinophils % (Manual) 1, Band Neutrophils 6, Toxic Granulation 1+, Polychromasia SLIGHT, Hypochromasia SLIGHT, Poikilocytosis SLIGHT, Anisocytosis SLIGHT, Microcytosis SLIGHT, Elliptocytes SLIGHT 04/20/23 08:00: Glucometer 193 04/20/23 09:50: Sodium Level 131, Potassium Level 5.6, Chloride Level 109, Carbon Dioxide Level 12, Anion Gap 10, Blood Urea Nitrogen 49, Creatinine 1.86, Estimat Glomerular Filtration Rate 27, BUN/Creatinine Ratio 26, Glucose Level 131, Calcium Level 8.2, Triglycerides Level 96 04/20/23 14:05: Blood Gas Puncture Site UNK, Blood Gas Patient Temperature 36.3, Arterial Blood pH 7.22, Arterial Blood Partial Pressure CO2 34, Arterial Blood Partial Pressure O2 74, Arterial Blood HCO3 14, Arterial Blood Total CO2 14.6, Arterial Blood Oxygen Saturation 91, Arterial Blood Base Excess -12.8, Tristian Test YES-POS, Blood Gas Ventilator Setting YES, Blood Gas Inspired Oxygen 50% Discharge Home Medications: Active Scripts Active Reported Aspirin EC (Aspirin) 81 Mg Tablet.dr 81 Mg PO DAILY Lisinopril 40 Mg Tablet 40 Mg PO DAILY Levothyroxine Sodium 88 Mcg Tablet 88 Mcg PO DAILY Omeprazole 20 Mg Capsule.dr 20 Mg PO HS Instructions to patient/family Please see electronic discharge instructions given to patient. Diagnosis/Problems Diagnosis/Problems (1) AMS (altered mental status) Status: Acute Qualifiers: Qualified Codes: R41.0 - Disorientation, unspecified (2) BRIAN (acute kidney injury) Status: Resolved Resolution Date/Time: 04/16/23 @ 16:44 (3) NSTEMI (non-ST elevated myocardial infarction) Status: Acute (4) Fall Status: Acute Qualifiers: Qualified Codes: W19.XXXA - Unspecified fall, initial encounter (5) Hypokalemia Status: Acute (6) Dehydration WALI RYAN DO Apr 20, 2023 14:04
[2023-04-20 14:14] LABS: ABG BASE EXCESS -12.8 MMOL/L (-2.5-2.5); ABG OXYGEN SATURATION 91 % (94-100); ABG PCO2 34 MMHG (35-45); ABG PO2 74 MMHG (79-93); ABG TCO2 14.6 MMOL/L (21.0-31.0)
[2023-04-20 14:15] VITALS: BP 108/37
[2023-04-20 14:17] LABS: ABG PH 7.22 (7.37-7.43); ALLENS TEST YES-POS; INSPIRED O2 50%; VENTILATOR YES
[2023-04-20 14:18] LABS: PATIENT TEMP 36.3
[2023-04-20] MEDS: cefTRIAXone 1 GM/NS 50 ML IVPB IV SCH ×2 (14:30)
[2023-04-20] MEDS ORDERED: SODIUM BICARB 8.4% 50 MEQ/50 ML (ABBOTT) SYR IV NR (14:30)
--- NOTE | 2023-04-20 15:24 | Physical Therapy Progress Note ---
Therapy Progress Note Patient transferred to ICU. Will need new orders to continue PT. DENYS DIEHL PT Apr 20, 2023 15:24
[2023-04-20 16:13] VITALS: BP 115/35
--- NOTE | 2023-04-20 16:25 | Progress Note ---
ALESHA MAYA 04/20/23 1624: Progress Note 82-year-old female with a history of high cholesterol, HTN, left knee OA, hypothyroidism, and a port placed in 2004 (last known flush was 2016) for breast cancer was found down at home, sitting in diarrhea and was reported to have large amounts of diarrhea the prior two days. Her WBC was in the 30's, sodium 12 9, potassium 2.6, troponin 0.336, and BUN/CR of 39/2.31. Patient was admitted to ICU on 04/13/23 and was found to have severe hypovolemia due to diarrhea, sepsis from UTI & bacteremia, type II MT, BRIAN, hyponatremia with hypokalemia, and anemia. During her stay, she was treated with IV fluids and empiric antibiotics of vancomycin & cefepime for C. difficile & UTI, respectively. Blood & urine cultures showed growth for Strep agalactiae. Furthermore, patient experienced multiple episodes of paroxysmal atrial tachycardia which cardiology started her on Cardizem CD. Once the patient was stable, she was transferred to [facility] on 04/15/22 and was continuing to feel unwell and was still having lots of pain from her left knee OA. She was consulted by medical oncology for acute leukemia but evidence supported acute severe WBC and anemia. On 04/18/23, patient was placed on IV gentamicin and IV ceftriaxone for Strep agalactiae UTI and bacteremia. On 04/19/23, patient was scheduled for a RHEA to rule out endocarditis, but had to be transferred back to ICU for incontinence with diarrhea, SOB, and hypotensive with V. tach. Later that night, the patient deteriorated and had acute respiratory failure with hypoxia and was started on BiPAP with possibility of intubation. 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 Surgery came in and performed removal of the port without any complications. It was decided that the patient was going to be intubated and flown out to [facility] for [facility] care from [place] and infectious disease. Patient was discharged on 04/20/23. INGRIS RYAN DO 04/20/23 2019: Supervisory-Addendum Brief Verification & Attestation Participated in pt care: history, MDM, physical Personally performed: exam, history, MDM, supervision of care Care discussed with: Medical Student Procedures: n/a Results interpretation: Verified all documentation Verification and Attestation of Medical Student E/M Service A medical student performed and documented this service in my presence. I reviewed and verified all information documented by the medical student and made modifications to such information, when appropriate. I personally performed the physical exam and medical decision making. Ingris Ryan, Apr 20, 2023,20:19 ALESHA MAYA Apr 20, 2023 16:24 INGRIS RYAN DO Apr 20, 2023 20:19
[2023-04-20] MEDS ORDERED: ETOMIDATE INJ SOLN 20 MG/10 ML VIAL IV ONE (16:44)
[2023-04-20] MEDS ORDERED: ROCURONIUM 50 MG/5 ML VIAL IV ONE (16:44)
[2023-04-20] MEDS ORDERED: MIDAZOLAM INJ 5 MG/5 ML VIAL INJ ONE (16:44)
[2023-04-20] MEDS ORDERED: ENOXAPARIN 30 MG/0.3 ML SYRINGE SC SCH (17:00)
[2023-04-20] MEDS ORDERED: RT-ALBUTEROL SULF 2.5 MG/3 ML PRE-MIX VIAL INH SCH (18:00)
[2023-04-21] MEDS ORDERED: TROUGH ORDER-PHARMACY XX ONE (08:00)
== END 2023-04-20 16:45 | DRG 871 ==
LOC: EDUNIT# 15:29 → ER 15:30 → ICU 18:14 → 4TH 04-15 12:52 → ICU 04-19 16:23
PROVIDERS: ADMIT Internal Medicine; ATTEND Internal Medicine
PROC: 02PYX3Z Removal of Infusion Device from Great Vessel, External Approach (ICD-10-PCS; 2023-04-20)
PROC: 5A1935Z Respiratory Ventilation, Less than 24 Consecutive Hours (ICD-10-PCS; 2023-04-20)
PROC: 0BH17EZ Insertion of Endotracheal Airway into Trachea, Via Natural or Artificial Opening (ICD-10-PCS; 2023-04-20)
PROC: 5A0935A Assistance with Respiratory Ventilation, Less than 24 Consecutive Hours, High Flow/Velocity Cannula (ICD-10-PCS; 2023-04-20)
PROC: 0JPT0WZ Removal of Totally Implantable Vascular Access Device from Trunk Subcutaneous Tissue and Fascia, Open Approach (ICD-10-PCS; principal; 2023-04-20 13:15)
DX: A40.9 Streptococcal sepsis, unspecified (principal); I21.A1 Myocardial infarction type 2; J80 Acute respiratory distress syndrome; R65.21 Severe sepsis with septic shock; I33.0 Acute and subacute infective endocarditis; N17.9 Acute kidney failure, unspecified; E87.1 Hypo-osmolality and hyponatremia; N39.0 Urinary tract infection, site not specified; A04.72 Enterocolitis due to Clostridium difficile, not specified as recurrent; I47.1 Supraventricular tachycardia; E87.20 Acidosis, unspecified; C95.00 Acute leukemia of unspecified cell type not having achieved remission; Z20.822 Contact with and (suspected) exposure to COVID-19; E87.6 Hypokalemia; Z79.899 Other long term (current) drug therapy; I10 Essential (primary) hypertension; E03.9 Hypothyroidism, unspecified; E86.0 Dehydration; E78.00 Pure hypercholesterolemia, unspecified; F41.9 Anxiety disorder, unspecified; F31.9 Bipolar disorder, unspecified; D64.9 Anemia, unspecified; M17.12 Unilateral primary osteoarthritis, left knee; I89.0 Lymphedema, not elsewhere classified; I48.0 Paroxysmal atrial fibrillation; I25.10 Atherosclerotic heart disease of native coronary artery without angina pectoris; B95.1 Streptococcus, group B, as the cause of diseases classified elsewhere; D63.0 Anemia in neoplastic disease
CPT/HCPCS: 36410; 36415; 36600; 51702; 70450; 71045; 71250; 72125; 73562; 74176; 76937; 80048; 80053; 80061; 80170; 81000; 82607; 82728; 82805; 82947; 83540; 83550; 83605; 83615; 83690; 83735; 83880; 84100; 84478; 84484; 85007; 85025; 85027; 85045; 85055; 85610; 85730; 87040; 87070; 87077; 87081; 87088; 87636; 93005; 93306; 94002; 94640; 94660; 94664; 94760; 96361; 96365